=== PATIENT | male | born 1955 | race Caucasian/White ===

== ENCOUNTER 2020-06-01 10:31 | Outpatient (CLI) | payer OTHER, SELFPAY ==
--- NOTE | ~2020-06-01 | XR_ITS ---
EXAMINATION: XR chest 2V EXAM DATE: 06/01/2020 11:53 INDICATION: COPD. Shortness of breath on exertion. TECHNIQUE: Frontal and lateral projections of the chest obtained and reviewed. There is no prior lizzie dy for comparison. FINDINGS: The lungs are clear. There are no pleural effusions. The cardiomediastinal silhouette is within normal limits. There is no pneumothorax suspected. The bones and soft tissues are unremarkab le. There is mild hyperinflation. IMPRESSION: Mild hyperinflation. Reviewed, dictated and finalized at location A. RIALS ANALYST IMPRESSION: Mild hyperinflation.
[2020-06-01 10:40] VITALS: PULSE 79; O2SAT 92
[2020-06-01 10:45] VITALS: PULSE 89; O2SAT 85
[2020-06-01 10:50] VITALS: PULSE 94; O2SAT 86
[2020-06-01 10:55] VITALS: PULSE 99; O2SAT 87
[2020-06-01 11:00] VITALS: PULSE 108; O2SAT 90
[2020-06-01 11:15] VITALS: PULSE 74; O2SAT 92
== END 2020-06-01 10:32 | disposition home or self-care (01) ==
LOC: ANHPFT 10:32
PROVIDERS: PCP Family Medicine Sports Medicine; Visit Provider Nurse Practitioner
DX: J44.9 Chronic obstructive pulmonary disease, unspecified (principal)
CPT/HCPCS: 71046; 94618

== ENCOUNTER 2020-06-03 12:32 | Outpatient (CLI) | payer OTHER, SELFPAY ==
--- NOTE | 2020-06-03 | ECHO_ITS ---
Patient Info Name: Demetrio Thapa Age: 64 years : 1955 Gender: Male Ht: 71 in Wt: 240 lbs BSA: 2.37 m2 HR: 74 bpm BP: 132 / 74 mmHg Technical Quality: Good Exam Date: 06/03/2020 1:06 PM Exam Location: [facility] Patient Status: Outpatient Admit Date: 06/03/2020 Staff Ordering Physician: Lon, Claudia SEBASTIAN Hot Metal Mixer Operator: Nereyda Pritchett RDCS Attending Provider: Lon, Claudia SEBASTIAN Referring Physician: PHYSICIAN NOT ON STAFF, NONSTAFF ; Exam Type: CA echo doppler color flow Study Info Indications R06.00 - Dyspnea, unspecified Complete two-dimensional, color flow and Doppler transthoracic echocardiogram is performed. Summary 1. Complete two-dimensional, color flow and Doppler transthoracic echocardiogram is performed. 2. Left ventricular chamber dimension is normal. 3. Left ventricular systolic function is normal, estimated at 60-65%. 4. The left ventricular diastolic function is normal. 5. E/e' 7 is not elevated. 6. There is trace tricuspid valve regurgitation. 7. There is mild pulmonic regurgitation. Left Ventricle E/e' 7 is not elevated. Left ventricular chamber dimension is normal. Left ventricular systolic function is normal, estimated at 60-65%. The left ventricular diastolic function is normal. Right Ventricle Right ventricular chamber dimension is normal. Right ventricular systolic function is normal. Left Atria Left atrial chamber dimension is normal. Right Atria Right atrial chamber dimension is normal. Aortic Valve The aortic valve is trileaflet. There is no aortic valve stenosis. There is no aortic valve regurgitation. Pulmonic Valve There is mild pulmonic regurgitation. Mitral Valve There is no mitral valve stenosis. There is no mitral valve regurgitation. Tricuspid Valve There is trace tricuspid valve regurgitation. RVSP is not calculated due to an inadequate TR jet. Pericardium/Pleural There is no pericardial effusion. Inferior Vena Cava Normal inferior vena cava with >50% collapse upon inspiration consistent with normal right atrial pressure, 5 mmHg. Aorta The aortic root size at the sinus of Valsalva is normal. Left Ventricular Outflow Tract Name Value Normal LVOT 2D LVOT Diameter 2.0 cm LVOT Doppler LVOT Peak Gradient 6 mmHg LVOT Mean Gradient 3 mmHg LVOT VTI 23 cm LVOT VTI/AV VTI Ratio 0.9 LVOT Stroke Volume 72 ml LVOT CO 5.3 l/min LVOT CI 2.2 l/min/m2 Pulmonic Valve Name Value Normal RVOT Doppler RVOT Peak Gradient 2 mmHg PV Doppler PV Peak
== END 2020-06-03 12:33 | disposition home or self-care (01) ==
PROVIDERS: PCP Family Medicine Sports Medicine; Visit Provider Nurse Practitioner
DX: R06.09 Other forms of dyspnea (principal); I37.1 Nonrheumatic pulmonary valve insufficiency
CPT/HCPCS: 93306

== ENCOUNTER 2022-04-06 07:31 | Outpatient (CLI) | payer MEDICARE, SELFPAY ==
--- NOTE | 2022-04-06 | ECHO_ITS ---
Patient Info Name: Demetrio Thapa Age: 66 years : 1955 Gender: Male Ht: 71 in Wt: 240 lbs BSA: 2.37 m2 HR: 74 bpm BP: 137 / 74 mmHg Technical Quality: Fair Exam Date: 04/06/2022 8:15 AM Exam Location: [facility] Patient Status: Outpatient Admit Date: 04/06/2022 Staff Ordering Physician: Lon, Claudia SEBASTIAN Business And Financial Counsel: Jeffrey Patton, EUGENIO, RT Attending Provider: Lon, Claudia SEBASTIAN Exam Type: CA echo doppler w bubble study Study Info Indications R06.00 - Dyspnea, unspecified Strain analysis performed. Complete two-dimensional, color flow and Doppler transthoracic echocardiogram is performed with agitated saline. Summary 1. Left ventricular chamber dimension is normal. 2. Left ventricular systolic function is normal, estimated at 60-65%. 3. The left ventricular diastolic function is normal. 4. E/e' 6 is not elevated. 5. Global longitudinal strain is abnormal at -12.4%. 6. There is trace tricuspid valve regurgitation. 7. Dilated inferior vena cava with >50% collapse upon inspiration consistent with elevated right atrial pressure, 10 mmHg. Left Ventricle E/e' 6 is not elevated. Global longitudinal strain is abnormal at -12.4%. Left ventricular chamber dimension is normal. Left ventricular systolic function is normal, estimated at 60-65%. The left ventricular diastolic function is normal. Right Ventricle Right ventricular systolic function is normal and with normal TAPSE 2.5 cm. Right ventricular chamber dimension is normal. Left Atria Left atrial chamber dimension is normal. Right Atria Right atrial chamber dimension is normal. Atrial Septum Intact interatrial septum visualized by 2D, color flow and agitated saline imaging. Aortic Valve The aortic valve is trileaflet. There is no aortic valve stenosis. There is no aortic valve regurgitation. Pulmonic Valve There is no pulmonic regurgitation. Mitral Valve There is no mitral valve stenosis. There is no mitral valve regurgitation. Tricuspid Valve There is trace tricuspid valve regurgitation. RVSP is not calculated due to an inadequate TR jet. Pericardium/Pleural There is no pericardial effusion. Inferior Vena Cava Dilated inferior vena cava with >50% collapse upon inspiration consistent with elevated right atrial pressure, 10 mmHg. Aorta The aortic root size at the sinus of Valsalva is normal. Left Ventricular Outflow Tract Name Value Normal LVOT 2D LVOT Diameter 2.0 cm LVOT Doppler LVOT Peak Gradient 4 mmHg LVOT Mean Gradient 2 mmHg LVOT VTI 22 cm LVOT VTI/AV VTI Ratio 0.8 LVOT Stroke Volume 70 ml LVOT CO 4.4 l/min LVOT CI 1.9 l/min/m2 Mitral Valve Name Value Normal MV Doppler ---
== END 2022-04-06 07:32 | disposition home or self-care (01) ==
PROVIDERS: PCP Family Medicine Sports Medicine; Visit Provider Nurse Practitioner
DX: R06.09 Other forms of dyspnea (principal)
CPT/HCPCS: 93306; 96375

== ENCOUNTER 2022-08-10 01:06 | Day surgery (SDC) | payer MEDICARE, SELFPAY ==
[2022-07-31 10:20] VITALS: BMI 33.5
[2022-08-10 11:34] VITALS: BP 124/77; PULSE 79; RESP 20; TEMP 36.2; O2SAT 92
--- NOTE | 2022-08-10 11:43 | P.PNAN_ITS ---
Anes - Initial Pre Proc Eval Procedure: Operation Date: 08/10/22 13:00 Proposed Procedures p Esophagogastroduodenoscopy - Dante Henry MD Date/Time: 08/10/22 11:43 Surgeon: Dante Henry MD Pre Op Diagnosis: family hx esophageal ca, abnormal CT scan Patient Data Age: 67 Gender: M Height: 1.8 m Weight: 109.5 kg Allergies Allergy/AdvReac Type Severity Reaction Status Date / Time No Known Allergies Allergy Unknown Verified 08/10/22 11:33 Home Medications Medication Instructions Recorded Confirmed Type citalopram 20 mg tablet 20 mg PO DAILY 05/30/22 07/31/22 History folic acid 800 mcg tablet 0.8 mg PO DAILY 05/30/22 07/31/22 History furosemide 20 mg tablet 20 mg PO QAM 05/30/22 07/31/22 History multivitamin (Daily Multi-Vitamin 1 tablet PO DAILY 05/30/22 07/31/22 History tablet) phenytoin 100 mg/4 mL oral 100 mg PO QID 05/30/22 07/31/22 History suspension umeclidinium 62.5 mcg-vilanterol 1 inh inhalation DAILY 05/30/22 07/31/22 History 25 mcg/actuation powdr for inhalation (Anoro Ellipta) Patient hx anesthesia problems: none Family hx anesthesia problems: none Results Review: All pre-operative results and documents have been reviewed as part of the pre- operative evaluation. [facility] Family History Family History (Updated 05/30/22 @ 10:58 by Johnna Hunter MA) Father Esophageal cancer Mother Throat cancer Depression Heart disease Thyroid disorder Social History Social History (Updated 05/30/22 @ 11:07 by Johnna Hunter MA) Smoking packs per day: 0.75 Smoking cigarettes per day: 15.0 Years smoked: 20 Smoking pack-years: 15.00 Smoking status: Current every day smoker Tobacco type: cigarettes Second hand tobacco smoke exposure: No Alcohol intake: current Alcohol use details: rare Substance use: never Substance use type: does not use Living arrangements: alone Occupation/Education: retired Spiritual care concerns: No Anes - Eval Final PreProcedure Day of Procedure 08/10/22 11:43 Patient weight: obese Heart: regular rate and rhythm Lungs: clear to auscultation Airway: Mallampati scale class II Neurological: alert and oriented Last oral intake: >/= 8 hours ASA classification: III Emergent: no Anesthetic plan: proceed Anesthesia type and monitoring: general GIVS and standard monitoring Results Review: All pre-operative results and documents have been reviewed as part of the pre- operative evaluation. Informed Consent: The patient's anesthetic plan and its attendant risks and benefits were discussed with the patient/family/POA. Questions were solicited and answers provided to the satisfaction of the patient/family/POA.
[2022-08-10] MEDS: LACTATED RINGERS 1,000 ML 150 ML IV CONT (11:45)
--- NOTE | 2022-08-10 11:56 | PM.HPGS ---
History of Present Illness History of Present Illness Consent: Risks, benefits, and alternatives have been discussed and questions answered. Patient agrees to proceed with procedure. Chief complaint: family hx esophageal ca, abnormal CT scan Narrative: Demetrio Thapa is a 67 year old male Presents for EGD. Patient has a history of a CT scan obtain by pulmonary service because of COPD. CT was done for screening purposes. CT scan raised the question of a filling defect within the esophagus. For this reason patient presents for EGD. Patient's family history is significant that his father had an esophageal cancer. Patient denies any pain, bleeding or weight loss. Review of Systems Review of Systems: Review of systems noncontributory. [facility] Family History Family History (Updated 05/30/22 @ 10:58 by Johnna Hunter MA) Father Esophageal cancer Mother Throat cancer Depression Heart disease Thyroid disorder Social History Social History (Updated 05/30/22 @ 11:07 by Johnna Hunter MA) Smoking packs per day: 0.75 Smoking cigarettes per day: 15.0 Years smoked: 20 Smoking pack-years: 15.00 Smoking status: Current every day smoker Tobacco type: cigarettes Second hand tobacco smoke exposure: No Alcohol intake: current Alcohol use details: rare Substance use: never Substance use type: does not use Living arrangements: alone Occupation/Education: retired Spiritual care concerns: No Meds Home Medications and Allergies Home Medications Medication Instructions Recorded Confirmed Type citalopram 20 mg tablet 20 mg PO DAILY 05/30/22 07/31/22 History folic acid 800 mcg tablet 0.8 mg PO DAILY 05/30/22 07/31/22 History furosemide 20 mg tablet 20 mg PO QAM 05/30/22 07/31/22 History multivitamin (Daily Multi-Vitamin 1 tablet PO DAILY 05/30/22 07/31/22 History tablet) phenytoin 100 mg/4 mL oral 100 mg PO QID 05/30/22 07/31/22 History suspension umeclidinium 62.5 mcg-vilanterol 1 inh inhalation DAILY 05/30/22 07/31/22 History 25 mcg/actuation powdr for inhalation (Anoro Ellipta) Allergies Allergy/AdvReac Type Severity Reaction Status Date / Time No Known Allergies Allergy Unknown Verified 08/10/22 11:33 Vital Signs Vital Signs - 24 hr 02/10/23 11:34 Temperature 97.2 F L Pulse Rate 79 Respiratory Rate 20 Blood Pressure 124/77 Pulse Oximetry 92 Oxygen Delivery Room Air Exam Narrative: Physical exam reveals patient be alert. Vital signs stable. HEENT exam is unremarkable. Patient anicteric. Lungs are clear to auscultation and percussion. Heart is without murmur or extra sounds. Abdomen bowel sounds present soft nontender with no organomegaly. Assessment and Plan Assessment and plan (1) Abnormal CT scan: Code(s): R93.89 - Abnormal findings on diagnostic imaging of other specified body structures Status: Acute Assessment and Plan: Patient presents for EGD because of CT scan suggesting filling defect within the esophagus. Patient's history is significant that his father had esophageal cancer. Further recommendations may be given after endoscopy.
[2022-08-10 13:21] VITALS: BP 95/58; PULSE 63; RESP 18; O2SAT 100
[2022-08-10 13:31] VITALS: BP 126/83; PULSE 68; RESP 22; O2SAT 92
[2022-08-10 13:41] VITALS: BP 138/84; PULSE 62; RESP 21; O2SAT 91
== END 2022-08-10 13:53 | disposition home or self-care (01) ==
PROVIDERS: PCP Family Medicine Sports Medicine; Visit Provider Internal Medicine Gastroenterology
PROC: 0DJ08ZZ Inspection of Upper Intestinal Tract, Via Natural or Artificial Opening Endoscopic (ICD-10-PCS; CPT 43235; principal; 2022-08-10 13:00)
DX: K31.7 Polyp of stomach and duodenum (principal); K22.10 Ulcer of esophagus without bleeding; Z80.0 Family history of malignant neoplasm of digestive organs; Z79.51 Long term (current) use of inhaled steroids; F17.210 Nicotine dependence, cigarettes, uncomplicated; E66.9 Obesity, unspecified; Z68.33 Body mass index [BMI] 33.0-33.9, adult
CPT/HCPCS: 43251; 88305; J2704; J7120

== ENCOUNTER 2022-09-28 01:26 | Day surgery (SDC) | payer MEDICARE, SELFPAY ==
[2022-09-18 15:21] VITALS: BMI 33.5
[2022-09-28 08:22] VITALS: BP 119/60; PULSE 68; RESP 20; TEMP 36.2; O2SAT 89; BMI 33.7
--- NOTE | 2022-09-28 08:27 | WPDANESEPPF ---
Anes - Initial Pre Proc Eval Procedure: Operation Date: 09/28/22 09:00 Proposed Procedures p Esophagogastroduodenoscopy - Dante Henry MD Date/Time: 09/28/22 08:27 Surgeon: Dante Henry MD Pre Op Diagnosis: family hx esophageal ca, hx esophageal polyps Patient Data Age: 67 Gender: M Height: 1.8 m Weight: 109.8 kg Last Vital Signs Temp 36.2 C L 09/28/22 08:22 Pulse 68 09/28/22 08:22 Resp 20 09/28/22 08:22 BP 119/60 09/28/22 08:22 Pulse Ox 89 L 09/28/22 08:22 O2 Del Method Room Air 09/28/22 08:22 Allergies Allergy/AdvReac Type Severity Reaction Status Date / Time No Known Allergies Allergy Unknown Verified 09/28/22 08:21 Home Medications Medication Instructions Recorded Confirmed Type citalopram 20 mg tablet 20 mg PO DAILY 05/30/22 09/28/22 History folic acid 800 mcg tablet 0.8 mg PO DAILY 05/30/22 09/28/22 History furosemide 20 mg tablet 20 mg PO QAM 05/30/22 09/28/22 History multivitamin (Daily Multi-Vitamin 1 tablet PO DAILY 05/30/22 09/28/22 History tablet) phenytoin 100 mg/4 mL oral 100 mg PO QID 05/30/22 09/28/22 History suspension umeclidinium 62.5 mcg-vilanterol 1 inh inhalation DAILY 05/30/22 09/28/22 History 25 mcg/actuation powdr for inhalation (Anoro Ellipta) pantoprazole 40 mg tablet,delayed 40 mg PO QAM #30 tabs 08/10/22 09/28/22 Rx release Patient hx anesthesia problems: none Family hx anesthesia problems: none Results Review: All pre-operative results and documents have been reviewed as part of the pre-operative evaluation. [facility] Past Medical History Medical History COPD (chronic obstructive pulmonary disease) Family History Family History Father Esophageal cancer Mother Throat cancer Depression Heart disease Thyroid disorder Social History Social History Smoking packs per day: 0.75 Smoking cigarettes per day: 15.0 Years smoked: 20 Smoking pack-years: 15.00 Smoking status: Current every day smoker Tobacco type: cigarettes Second hand tobacco smoke exposure: No Alcohol intake: current Alcohol use details: rare Substance use: never Substance use type: does not use Living arrangements: alone Occupation/Education: retired Spiritual care concerns: No Anes - Eval Final PreProcedure Day of Procedure 09/28/22 08:27 Patient weight: obese Heart: regular rate and rhythm Lungs: decreased breath sounds Airway: Mallampati scale class II Neurological: alert and oriented Last oral intake: >/= 8 hours ASA classification: IV Emergent: no Anesthetic plan: proceed Anesthesia type and monitoring: general GIVS and standard monitoring Results Review: All pre-operative results and documents have been reviewed as part of the pre-operative evaluation. Informed Consent: The patient's anesthetic plan and its attendant risks and benefits were discussed with the patient/family/POA. Questions were solicited and answers provided to the satisfaction of the patient/family/POA.
[2022-09-28] MEDS: LACTATED RINGERS 1,000 ML 150 ML IV CONT (08:32)
--- NOTE | 2022-09-28 08:47 | PM.HPGS ---
History of Present Illness History of Present Illness Consent: Risks, benefits, and alternatives have been discussed and questions answered. Patient agrees to proceed with procedure. Chief complaint: family hx esophageal ca, hx esophageal polyps Narrative: Demetrio Thapa is a 67 year old male Presents for EGD. Patient has a history of a rather large distal esophageal hyperplastic polyp. Patient presents today for follow-up examination. Family history is significant that his father had esophageal cancer. A sister has had esophageal polyps as well. Patient currently on chronic pantoprazole for acid reflux. He denies heartburn. He has had no dysphagia. Review of Systems Review of Systems: Review of systems noncontributory. [facility] Past Medical History Medical History COPD (chronic obstructive pulmonary disease) Family History Family History Father Esophageal cancer Mother Throat cancer Depression Heart disease Thyroid disorder Social History Social History Smoking packs per day: 0.75 Smoking cigarettes per day: 15.0 Years smoked: 20 Smoking pack-years: 15.00 Smoking status: Current every day smoker Tobacco type: cigarettes Second hand tobacco smoke exposure: No Alcohol intake: current Alcohol use details: rare Substance use: never Substance use type: does not use Living arrangements: alone Occupation/Education: retired Spiritual care concerns: No Meds Home Medications and Allergies Home Medications Medication Instructions Recorded Confirmed Type citalopram 20 mg tablet 20 mg PO DAILY 05/30/22 09/28/22 History folic acid 800 mcg tablet 0.8 mg PO DAILY 05/30/22 09/28/22 History furosemide 20 mg tablet 20 mg PO QAM 05/30/22 09/28/22 History multivitamin (Daily Multi-Vitamin 1 tablet PO DAILY 05/30/22 09/28/22 History tablet) phenytoin 100 mg/4 mL oral 100 mg PO QID 05/30/22 09/28/22 History suspension umeclidinium 62.5 mcg-vilanterol 1 inh inhalation DAILY 05/30/22 09/28/22 History 25 mcg/actuation powdr for inhalation (Anoro Ellipta) pantoprazole 40 mg tablet,delayed 40 mg PO QAM #30 tabs 08/10/22 09/28/22 Rx release Allergies Allergy/AdvReac Type Severity Reaction Status Date / Time No Known Allergies Allergy Unknown Verified 09/28/22 08:21 Vital Signs Vital Signs - 24 hr 09/28/22 08:22 Temperature 97.2 F L Pulse Rate 68 Respiratory Rate 20 Blood Pressure 119/60 Pulse Oximetry 89 L Oxygen Delivery Room Air Exam Narrative: Physical exam reveals patient to be alert. Vital signs stable. HEENT exam is unremarkable. Patient is anicteric. Lungs are clear to auscultation and percussion. Heart is without murmur or extra sounds. Abdomen is soft nontender with no hepatosplenomegaly. Assessment and Plan Assessment and plan (1) GERD (gastroesophageal reflux disease): Code(s): K21.9 - Gastro-esophageal reflux disease without esophagitis Status: Acute Assessment and Plan: Patient with a history of chronic GE reflux disease patient has a history of a rather large inflammatory polyp of the GE junction. His family history is significant father had esophageal cancer. Plan for long-term acid reduction therapy. Anti-reflux measures strongly encouraged. Follow-up at this time after resection of large polyp. To exclude underlying Hunter's esophagus. (2) Family history of esophageal cancer: Code(s): Z80.0 - Family history of malignant neoplasm of digestive organs Status: Acute
[2022-09-28 09:09] VITALS: BP 100/59; PULSE 62; RESP 15; O2SAT 100
[2022-09-28 09:19] VITALS: BP 107/70; PULSE 60; RESP 17; O2SAT 94
== END 2022-09-28 09:32 | disposition home or self-care (01) ==
PROVIDERS: PCP Family Medicine Sports Medicine; Visit Provider Internal Medicine Gastroenterology
PROC: 0DJ08ZZ Inspection of Upper Intestinal Tract, Via Natural or Artificial Opening Endoscopic (ICD-10-PCS; CPT 43235; principal; 2022-09-28 09:00)
DX: K21.9 Gastro-esophageal reflux disease without esophagitis (principal); K22.82 Esophagogastric junction polyp; Z80.0 Family history of malignant neoplasm of digestive organs; J44.9 Chronic obstructive pulmonary disease, unspecified; F17.210 Nicotine dependence, cigarettes, uncomplicated; E66.9 Obesity, unspecified; Z68.33 Body mass index [BMI] 33.0-33.9, adult; Z79.51 Long term (current) use of inhaled steroids
CPT/HCPCS: 43239; 88305; J2704; J7120

== ENCOUNTER 2022-11-16 14:42 | Outpatient (CLI) | payer MEDICARE, SELFPAY ==
[2022-11-16] VITALS (7 sets, daily range): PULSE 70–96; O2SAT 86–90
--- NOTE | 2022-11-16 15:13 | HOMEO2EVAL ---
Evaluation was performed at [facility] Home Oxygen Evaluation RC: Home Oxygen (O2) Evaluation Start: 11/16/22 15:08 Freq: Status: Active Protocol: RPE Activity Type Activity Date Activity User E-sign Co-sign Detail Recorded Client Recorded Date Recorded By Document 11/16/22 14:50 MALATHI [email or web address] 11/16/22 15:13 MALATHI Document 11/16/22 14:51 MALATHI [email or web address] 11/16/22 15:13 MALATHI Document 11/16/22 14:52 MALATHI [email or web address] 11/16/22 15:13 MALATHI Document 11/16/22 14:53 MALATHI [email or web address] 11/16/22 15:13 MALATHI Document 11/16/22 14:55 MALATHI [email or web address] 11/16/22 15:13 MALATHI Document 11/16/22 14:56 MALATHI [email or web address] 11/16/22 15:13 MALATHI Document 11/16/22 15:10 MALATHI [email or web address] 11/16/22 15:13 MALATHI 11/16/22 11/16/22 11/16/22 14:50 14:51 14:52 Home O2 Evaluation [Oxygen] -Test Phase Resting Exercise Exercise -Oxygen Delivery Room Air Room Air Nasal Cannula -Oxygen Flow Rate (L/min) 1 [Pulse Oximetry] -Pulse Oximetry (90-100 %) 90 86 L 87 L [Pulse Rate] -Pulse Rate (60-100 beats/min) 70 [Exercise] -Ambulation Distance (feet) -Ambulation Distance (meters) [Comments] -Home Oxygen Evaluation Comments [Charges] -Treatment Charges O2 Evaluation - Outpatient 11/16/22 11/16/22 11/16/22 14:53 14:55 14:56 Home O2 Evaluation [Oxygen] -Test Phase Exercise Exercise Exercise -Oxygen Delivery Nasal Cannula Nasal Cannula Nasal Cannula -Oxygen Flow Rate (L/min) 2 3 4 [Pulse Oximetry] -Pulse Oximetry (90-100 %) 86 L 87 L 90 [Pulse Rate] -Pulse Rate (60-100 beats/min) 96 [Exercise] -Ambulation Distance (feet) 300 -Ambulation Distance (meters) 91.43 [Comments] -Home Oxygen Evaluation Comments Pt requires 4 L O2 with activity/ exertion. [Charges] -Treatment Charges 11/16/22 15:10 Home O2 Evaluation [Oxygen] -Test Phase Resting -Oxygen Delivery Room Air -Oxygen Flow Rate (L/min) [Pulse Oximetry] -Pulse Oximetry (90-100 %) 90 [Pulse Rate] -Pulse Rate (60-100 beats/min) 76 [Exercise] -Ambulation Distance (feet) -Ambulation Distance (meters) [Comments] -Home Oxygen Evaluation Comments [Charges] -Treatment Charges
--- NOTE | 2022-11-16 15:13 | PCRCNOTE ---
Faxed home O2 eval to [facility] office staff. Pt requesting a POC, he has a POC currently with [facility] but only goes up to 3L. Will not on fax to office staff of needed increase in POC requirements. Pt does not want tanks.
--- NOTE | 2022-11-19 10:53 | WPDPFTINT ---
PFT Procedure Performed PFT Procedure Performed Spirometry with Pre/Post Bronchodilator Plethysmography (Lung Vol) Diffusing Cap (DLCO) Flow Vol Loop PFT Interpretation Lung volumes were measured with the body plethysmography method. The elevated FRC and RV are indicative of air trapping. Spirometry showed diminished expiratory flow rates and a diminished FEV1 to FVC ratio 45%, consistent with obstructive airway disease. Following administration of a bronchodilator there was no significant increase in expiratory flow rates. Lung diffusion capacity is severely reduced at 34% predicted. The flow-volume loop is consistent with emphysema. Impression: Moderately severe obstructive airway disease with evidence of air trapping and no response to bronchodilators on this testing. Severely reduced lung diffusion capacity.
== END 2022-11-16 14:43 | disposition home or self-care (01) ==
PROVIDERS: PCP Family Medicine Sports Medicine; Visit Provider Nurse Practitioner
DX: J44.9 Chronic obstructive pulmonary disease, unspecified (principal); R94.2 Abnormal results of pulmonary function studies
CPT/HCPCS: 94060; 94618; 94726; 94729

== ENCOUNTER 2024-05-19 14:10 | Outpatient (CLI) | payer MEDICARE, SELFPAY ==
--- NOTE | ~2024-05-19 | CT_ITS ---
EXAMINATION:CT lung screening DATE: 05/19/2024 14:39 INDICATION: Personal history of nicotine dependence. Current smoker with 49 pack year history. TECHNIQUE: Computed tomography (CT) of the chest was performed without intravenous contrast. Automate d exposure control and iterative reconstruction technique were employed. The dose-length product (DLP ) was 245.35 mGy-cm. COMPARISON: Chest CT 04/08/2023, 04/03/22 FINDINGS: There is a 10 mm nodule in right lower lobe, stable from 04/03/22. There is peripheral septa l thickening in the lungs associated with groundglass opacities. There is mild emphysema. No pleural effusion. The heart size is normal. There are coronary artery calcifications. No pericardial effusion . The central pulmonary arteries are enlarged, consistent with pulmonary arterial hypertension. There is chronic fat stranding at the root of the small bowel mesentery. There is mild thoracic spondylosi s. There are multiple chronic compression fractures in the spine. IMPRESSION: 1. Lung-RADS category 2: Benign appearance or behavior. Continue annual screening with noncontrast lo w-dose chest CT in 12 months. Reviewed, dictated and finalized at location A. OLOGY PROFESSOR IMPRESSION: 1. Lung-RADS category 2: Benign appearance or behavior. Continue annual screeni ng with noncontrast low-dose chest CT in 12 months.
== END 2024-05-19 14:11 | disposition home or self-care (01) ==
PROVIDERS: PCP Family Medicine; Visit Provider Nurse Practitioner Family
DX: Z12.2 Encounter for screening for malignant neoplasm of respiratory organs (principal); Z87.891 Personal history of nicotine dependence
CPT/HCPCS: 71271

== ENCOUNTER 2024-09-29 13:37 | Inpatient (IN) | payer MEDICARE, SELFPAY ==
[2024-09-29] VITALS (18 sets, daily range): BP systolic 107–157; BP diastolic 61–81; PULSE 52–95; RESP 9–33; TEMP 36.8–37.1; O2SAT 88–98; BMI 31.3
--- NOTE | ~2024-09-29 | CT_ITS ---
EXAMINATION: CTA chest PE protocol DATE: 10/02/2024 14:45 CDT INDICATION: Hypoxia TECHNIQUE: Computed tomographic angiography (CTA) of the chest was performed with 100 mL Omnipaque-35 0 intravenous contrast. The dose-length product was 744.72 mGy-cm. Maximum intensity projection 3D-re constructions of the aorta and other arteries were constructed by the technologist on a separate work station. Automated exposure control and iterative reconstruction technique were employed. COMPARISON: CT dated 05/19/2024. FINDINGS: Enlarged pulmonary arteries consistent with pulmonary hypertension. Study is technically ad equate without evidence for pulmonary embolism. Borderline heart size. There is mediastinal and hilar lymphadenopathy. No significant pleural or pericardial effusion. There is emphysema. No endobronchia l lesions. There is bilateral lower lobe airspace consolidation with groundglass opacification of bot h lungs. No endobronchial lesions. No pneumothorax. There are multiple compression fractures of the t horacic spine, unchanged, chronic. IMPRESSION: 1. No evidence for pulmonary embolism. 2: Lower lobe consolidation bilaterally with areas of groundglass opacification in both lungs. Differ ential diagnosis includes pneumonia and/or atelectasis. 3: Mediastinal and bilateral hilar lymphadenopathy. Differential diagnosis includes reactive lymphade nopathy versus metastatic disease. Correlate for history of malignancy. Reviewed, dictated and finalized at location A. IMPRESSION: 1. No evidence for pulmonary embolism. 2: Lower lobe consolidation bilaterally with areas of groundglass opacification in both lungs. Differential diagnosis includes pneumonia and/or atelectasis. 3: Mediastinal and bilateral hilar lymphadenopathy. Differential diagnosis incl udes reactive lymphadenopathy versus metastatic disease. Correlate for history of malignancy.
--- NOTE | ~2024-09-29 | XR_ITS ---
EXAMINATION: XR chest 1V portable DATE: 09/29/2024 14:09 INDICATION: Shortness of breath TECHNIQUE: frontal view of the chest was obtained. COMPARISON: Chest radiograph dated 06/01/[address] dated 05/19/2024 FINDINGS: Mild increased interstitial pattern in the bilateral lower lung zones consistent with mild pulmonary edema. No other airspace opacities, pleural effusion or pneumothorax. Heart size is normal with peric ardial fat pad along the apex of the heart. IMPRESSION: 1. Mild increased interstitial pattern in the bilateral lower lung zones which could represent mild p ulmonary edema or pneumonia. Reviewed, dictated and finalized at location A. IMPRESSION: 1. Mild increased interstitial pattern in the bilateral lower lung zones which could represent mild pulmonary edema or pneumonia.
--- NOTE | 2024-09-29 13:44 | ED_ITS ---
HPI - General Adult General Chief complaint: Shortness of Breath/Dyspnea Stated complaint: SOB History of Present Illness HPI narrative: 69-year-old male present to the emergency department for evaluation for worsening shortness of breath. Patient does have a history of COPD but suspects that he has had influenza for the course of the last week. Patient states he has not smoked in the last 5 days. Patient does wear 8L of oxygen at nighttime. Related Data Home Medications ?Medication ?Instructions ?Recorded ?Confirmed ?Last Taken ?Type citalopram 20 mg tablet 20 mg PO DAILY 05/30/22 09/29/24 08/09/22 History folic acid 800 mcg tablet 0.8 mg PO DAILY 05/30/22 09/29/24 08/09/22 History furosemide 20 mg tablet 20 mg PO QAM 05/30/22 09/29/24 08/09/22 History multivitamin (Daily Multi-Vitamin 1 tablet PO DAILY 05/30/22 09/29/24 08/09/22 History tablet) phenytoin 100 mg/4 mL oral 200 mg PO BID 05/30/22 09/29/24 09/28/24 History suspension Allergies Allergy/AdvReac Type Severity Reaction Status Date / Time No Known Allergies Allergy Unknown Verified 09/29/24 13:51 Review of Systems 2 Review of Systems: All systems reviewed & are unremarkable except as noted in HPI and below PMFSH Past Medical History Medical History COPD (chronic obstructive pulmonary disease) Esophageal erosions Esophageal polyp Family history of esophageal cancer GERD (gastroesophageal reflux disease) Seizures Family History Family History Father Esophageal cancer Mother Throat cancer Depression Heart disease Thyroid disorder Social History Social History Social History: He is a current smoker 3/4ppd; started age 13 to 29 1.5ppd, quit for 15 years then restarted smoking 1998 up to now. Was 2ppd for first few years then around 3/4-1ppd currently; ~49 pack years. Smoking packs per day: 1 Smoking cigarettes per day: 20.0 Years smoked: 41 Smoking pack-years: 41.00 Smoking status: Current every day smoker Tobacco type: cigarettes Second hand tobacco smoke exposure: No Alcohol intake: current Drinks per week: 3 Alcohol use details: rare Substance use: never Substance use type: does not use Do You Feel Safe in your Home?: Yes Lack of Transportation: No Lack of Food: Never True Current Housing: I Have Housing Concerned About Future Housing: No Difficulty Paying Gas/Electric Bills: No Difficulty Paying for Meds: No Currently Unemployed: No Education: Bachelor's Degree Difficulty w/ Childcare or Family Care: No Living arrangements: alone Occupation/Education: retired Spiritual care concerns: No Exam 2 Narrative: APPEARANCE: Ill appearing EYES: PERRLA/EOMI, conjunctivae clear. NOSE: Normal no drainage EARS:TMS clear with good light reflex. THROAT: Pharynx clear, no exudate. NECK: Supple. No adenopathy, no masses. RESPIRATORY: Expiratory wheeze CARDIOVASCULAR: Regular rate and rhythm without murmurs rubs or gallops. ABDOMINAL: Soft, nontender, nondistended, normal bowel sounds MUSCULOSKELETAL: Moves all extremities. Strength/ROM intact, No edema, No calf tenderness. NEURO: Alert. Cranial nerves II through XII intact. Good gait. Good coordination SKIN: Warm, dry. Normal Color Course Vital Signs Vital signs: Vital Signs Temperature 98.7 F 09/29/24 13:39 Pulse Rate 95 09/29/24 13:39 Respiratory Rate 32 H 09/29/24 13:39 Blood Pressure 110/70 09/29/24 13:39 Pulse Oximetry 88 L 09/29/24 13:39 Oxygen Delivery Nasal Cannula 09/29/24 13:39 Oxygen Flow Rate 6 09/29/24 13:39 Temperature 98.7 F 09/29/24 13:39 Pulse Rate 69 09/29/24 16:30 Respiratory Rate 18 09/29/24 16:30 Blood Pressure 128/66 09/29/24 16:08 Pulse Oximetry 97 09/29/24 16:30 Oxygen Delivery BiPAP 09/29/24 16:30 Oxygen Flow Rate 6 09/29/24 13:58 Medical Decision Making [facility] Narrative Medical decision making narrative: 69-year-old male with history smoking with COPD with an 8 L oxygen requirement at nighttime on his CPAP presents emergency department for evaluation for increased work of breathing. Patient is normally not on oxygen during the day but has been using it more frequently during the day. Patient was saturating at 89% on 4 L. Patient was treated with 2 breathing treatments but still has increased work of breathing. Patient is currently afebrile with no leukocytosis and hemoglobin of 14.5. INR is 1.1. On patient's ABG did have a pCO2 of 44 and an ABG O2 saturation of 85.8. Due to his increased work of breathing I am trialing the patient BiPAP. Patient was treated with 125 IV Solu-Medrol. Patient has no significant abnormalities on his CMP patient was positive for influenza A. Chest x-ray showed mild increased interstitial pattern in the bilateral lower lung zones which could represent mild pulmonary edema or pneumonia. BNP is pending. Patient will be started on antibiotics in the emergency department at least for a single dose. Differential Diagnosis Differential Diagnosis: COVID, RSV influenza, pneumonia, pulmonary edema Vital Signs Vital Signs: Vital Signs Temperature 98.7 F 09/29/24 13:39 Pulse Rate 95 09/29/24 13:39 Respiratory Rate 32 H 09/29/24 13:39 Blood Pressure 110/70 09/29/24 13:39 Pulse Oximetry 88 L 09/29/24 13:39 Oxygen Delivery Nasal Cannula 09/29/24 13:39 Oxygen Flow Rate 6 09/29/24 13:39 Temperature 98.7 F 09/29/24 13:39 Pulse Rate 69 09/29/24 16:30 Respiratory Rate 18 09/29/24 16:30 Blood Pressure 128/66 09/29/24 16:08 Pulse Oximetry 97 09/29/24 16:30 Oxygen Delivery BiPAP 09/29/24 16:30 Oxygen Flow Rate 6 09/29/24 13:58 Lab Data Lab results reviewed: Yes I reviewed the patient's lab results. 09/29/24 13:55 09/29/24 13:55 Labs: Lab Results 09/29/24 09/29/24 09/29/24 Range/Units 13:49 13:55 15:38 WBC 8.1 (4.5-10.0) K/mm3 RBC 4.52 L (4.6-6.20) M/mm3 Hgb 14.5 (14.0-18.0) g/dL Hct 43.6 (42.0-52.0) % MCV 96.5 (80-100) fl MCH 32.1 (26-34) pg MCHC 33.3 (32-36) g/dl RDW 14.3 (11.5-14.5) % Plt Count 118 L (150-375) k/mm3 MPV 9.1 (7.4-10.4) fl Immature Gran % (Auto) 0.2 (0-0.5) % Neut % (Auto) 70.8 (45.5-73.1) % Lymph % (Auto) 17.9 L (18.3-44.2) % [place] % (Auto) 10.7 H (2.6-8.5) % Eos % (Auto) 0.0 (0-4.4) % Baso % (Auto) 0.4 (0.2-1.2) % Lymph # (Auto) 1.44 (0.9-3.2) K/mm3 [place] # (Auto) 0.9 H (0.1-0.6) K/mm3 Eos # (Auto) 0.0 (0-0.3) K/mm3 Baso # (Auto) 0.0 (0.0-0.1) K/mm3 Abs Immat Gran (auto) 0.02 (0.00-0.031) K/mm3 Absolute Neuts (auto) 5.7 (1.3-6.7) K/mm3 Absolute Nucleated RBC 0.000 (0.0-0.012) K/mm3 Nucleated RBC % 0.0 (0.0-0.2) % % Immature Plt Fraction 2.3 (0.9-11.2) % PT 14.3 (11.1-14.7) Seconds INR 1.1 APTT 29.3 (22.3-36.8) Seconds Methemoglobin 0.3 (0-1.5) %THb Sodium 134 L (137-145) mmol/L Potassium 4.1 (3.4-5.0) mmol/L Chloride 95 L (98-107) mmol/L Carbon Dioxide 32 H (22-30) mmol/L Anion Gap 7 (4-12) mmol/L BUN 14 (9-20) mg/dL Creatinine 0.55 L (0.7-1.3) mg/dL Estim Creat Clear Calc 127 ml/min Estimated GFR > 60 (59 - ) Glucose 91 (65-110) mg/dL Lactic Acid 0.8 (0.7-2.0) mmol/L Calcium 8.2 L (8.4-10.2) mg/dL Total Bilirubin 0.8 (0.2-1.3) mg/dL AST 44 (17-59) U/L ALT 29 (6-50) U/L Alkaline Phosphatase 87 (38-126) U/L NT-Pro-B Natriuret Pep 170 H (19.9-100) pg/mL Total Protein 8.0 (6.3-8.2) g/dL Albumin 3.7 (3.5-5.1) g/dL Urine Color (Yellow) Urine Appearance (Clear) Urine pH (5.0-9.0) Ur Specific [place] (1.001-1.035) Urine Protein (Negative) mg/dL Urine Glucose (UA) (Negative) mg/dL Urine Ketones (Negative) mg/dL Ur Blood (Man) (Negative) Urine Nitrate (Negative) Urine Bilirubin (Negative) Urine Urobilinogen (<2.0) mg/dL Leukocyte Esterase Rfl (Negative) HODA/UL Urine RBC (0-2) /hpf Urine WBC (0-3) /hpf Ur Squamous Epith Cells (Few) /hpf Urine Bacteria /hpf Urine Casts Nasal MRSA (PCR) Not detected (NOT DETECTE) Influenza A (RT-PCR) Positive A (Negative) Influenza B (RT-PCR) Negative (Negative) RSV (RT-PCR) Negative (Negative) SARS-CoV-2 RNA (RT-PCR) Negative (Negative) 09/29/24 Range/Units 16:00 WBC (4.5-10.0) K/mm3 RBC (4.6-6.20) M/mm3 Hgb (14.0-18.0) g/dL Hct (42.0-52.0) % MCV (80-100) fl MCH (26-34) pg MCHC (32-36) g/dl RDW (11.5-14.5) % Plt Count (150-375) k/mm3 MPV (7.4-10.4) fl Immature Gran % (Auto) (0-0.5) % Neut % (Auto) (45.5-73.1) % Lymph % (Auto) (18.3-44.2) % [place] % (Auto) (2.6-8.5) % Eos % (Auto) (0-4.4) % Baso % (Auto) (0.2-1.2) % Lymph # (Auto) (0.9-3.2) K/mm3 [place] # (Auto) (0.1-0.6) K/mm3 Eos # (Auto) (0-0.3) K/mm3 Baso # (Auto) (0.0-0.1) K/mm3 Abs Immat Gran (auto) (0.00-0.031) K/mm3 Absolute Neuts (auto) (1.3-6.7) K/mm3 Absolute Nucleated RBC (0.0-0.012) K/mm3 Nucleated RBC % (0.0-0.2) % % Immature Plt Fraction (0.9-11.2) % PT (11.1-14.7) Seconds INR APTT (22.3-36.8) Seconds Methemoglobin (0-1.5) %THb Sodium (137-145) mmol/L Potassium (3.4-5.0) mmol/L Chloride (98-107) mmol/L Carbon Dioxide (22-30) mmol/L Anion Gap (4-12) mmol/L BUN (9-20) mg/dL Creatinine (0.7-1.3) mg/dL Estim Creat Clear Calc ml/min Estimated GFR (59 - ) Glucose (65-110) mg/dL Lactic Acid (0.7-2.0) mmol/L Calcium (8.4-10.2) mg/dL Total Bilirubin (0.2-1.3) mg/dL AST (17-59) U/L ALT (6-50) U/L Alkaline Phosphatase (38-126) U/L NT-Pro-B Natriuret Pep (19.9-100) pg/mL Total Protein (6.3-8.2) g/dL Albumin (3.5-5.1) g/dL Urine Color Yellow (Yellow) Urine Appearance Clear (Clear) Urine pH 6.0 (5.0-9.0) Ur Specific [place] 1.014 (1.001-1.035) Urine Protein 1+ H (Negative) mg/dL Urine Glucose (UA) Negative (Negative) mg/dL Urine Ketones 1+ H (Negative) mg/dL Ur Blood (Man) Negative (Negative) Urine Nitrate Negative (Negative) Urine Bilirubin Negative (Negative) Urine Urobilinogen 1.0 (<2.0) mg/dL Leukocyte Esterase Rfl Negative (Negative) HODA/UL Urine RBC 0-2 (0-2) /hpf Urine WBC 0-5 (0-3) /hpf Ur Squamous Epith Cells None seen (Few) /hpf Urine Bacteria None seen /hpf Urine Casts 0-2 Nasal MRSA (PCR) (NOT DETECTE) Influenza A (RT-PCR) (Negative) Influenza B (RT-PCR) (Negative) RSV (RT-PCR) (Negative) SARS-CoV-2 RNA (RT-PCR) (Negative) ABG Data ABG results: 09/29/24 13:49 Puncture Site Right radial ABG pH 7.455 H ABG pCO2 44.1 ABG pO2 48.3 L* ABG PO2/FiO2 Ratio 1.34 ABG HCO3 30.3 H ABG O2 Saturation 85.8 L* ABG O2 Content 17.8 ABG Base Excess 5.6 A-a Gradient 157.2 Oxyhemoglobin 83.9 L* Carboxyhemoglobin 2.0 Reduced Hemoglobin 13.8 H Total Hemoglobin 15.1 O2 Delivery Device Nasal cannula O2 Liters/Min 4.0 FiO2 36 Imaging Data Radiologist's impression: Impressions Chest X-Ray 09/29/24 14:17 IMPRESSION: 1. Mild increased interstitial pattern in the bilateral lower lung zones which could represent mild pulmonary edema or pneumonia. Discharge Plan Discharge Clinical Impression: Hypoxia, Influenza A Community acquired pneumonia Qualifiers: Laterality: unspecified laterality Qualified Code(s): J18.9 - Pneumonia, unspecified organism COPD (chronic obstructive pulmonary disease) Qualifiers: COPD type: COPD with acute exacerbation Qualified Code(s): J44.1 - Chronic obstructive pulmonary disease with (acute) exacerbation Patient Disposition: Still a Patient Condition: Serious
[2024-09-29] MEDS: methylPREDNISolone SOD SUCC 125 MG VIAL IV PUSH (13:51)
[2024-09-29] MEDS: ALBUTEROL SULFATE NEB 2.5 MG/3 ML INH 5 MG INHALATION (13:59)
[2024-09-29 14:06] LABS: Alveolar/Arterial O2 Gradient 157.2 mmHg; Base Excess ABG 5.6 mEq/l (+/-2.0); Fractional Inspired Oxygen 36 %; HCO3 ABG 30.3 mEq/l (22.0-26.0); Methemoglobin ABG 0.3 %THb (0-1.5); Oxygen Content ABG 17.8 %vol (16.0-22.0); PCO2 ABG 44.1 mmHg (35.0-45.0); PO2 FiO2 Ratio Arterial Blood 1.34 %; Reduced Hemoglobin 13.8 %THb (0-5.0); Total Hemoglobin 15.1 g/dL (12.0-18.0); pH ABG 7.455 (7.350-7.450)
[2024-09-29 14:08] LABS: PO2 ABG 48.3 mmHg (80.0-100.0)
[2024-09-29 14:09] LABS: Device NASAL CANNULA; Modified Allen's Test Pass; Oxygen Saturation ABG 85.8 % (95.0-100.0); Oxyhemoglobin 83.9 % THb (90.0-100.0); Site Drawn RIGHT RADIAL
--- NOTE | 2024-09-29 14:14 | ECG_ITS ---
Test Date: 2024-09-29 13:44:29 Measurements Intervals [place] Rate: 60 P: 40 MS: 149 QRS: -21 QRSD: 84 T: 17 QT: 415 QTc: 415 Interpretive Statements SINUS RHYTHM BASELINE ARTIFACT- I, II, III, AVR, AVF NORMAL ECG No previous ECG available for comparison Electronically Signed On 09-29-2024 14:16:[address] D[address]
[2024-09-29 14:15] LABS: Basophils Percent Auto 0.4 % (0.2-1.2); Hematocrit 43.6 % (42.0-52.0); Hemoglobin 14.5 g/dL (14.0-18.0); Immature Granulocyte Absolute 0.02 K/mm3 (0.00-0.031); Immature Granulocyte Percent A 0.2 % (0-0.5); Immature Platelet Fraction Pct 2.3 % (0.9-11.2); Lymphocytes Absolute Auto 1.44 K/mm3 (0.9-3.2); Lymphocytes Percent Auto 17.9 % (18.3-44.2); Mean Corpuscular HGB Conc 33.3 g/dl (32-36); Mean Corpuscular Hemoglobin 32.1 pg (26-34); Mean Corpuscular Volume 96.5 fl (80-100); Mean Platelet Volume 9.1 fl (7.4-10.4); Monocytes Absolute Auto 0.9 K/mm3 (0.1-0.6); Monocytes Percent Auto 10.7 % (2.6-8.5); Neutrophils Absolute Auto 5.7 K/mm3 (1.3-6.7); Neutrophils Percent Auto 70.8 % (45.5-73.1); Platelet Count Result 118 k/mm3 (150-375); Red Blood Count 4.52 M/mm3 (4.6-6.20); Red Cell Distribution Width 14.3 % (11.5-14.5); White Blood Count 8.1 K/mm3 (4.5-10.0)
[2024-09-29 14:16] LABS: Alanine Aminotransferase 29 U/L (6-50); Albumin Level 3.7 g/dL (3.5-5.1); Alkaline Phosphatase 87 U/L (38-126); Anion Gap 7 mmol/L (4-12); Aspartate Amino Transferase 44 U/L (17-59); Bilirubin,Total 0.8 mg/dL (0.2-1.3); Blood Urea Nitrogen 14 mg/dL (9-20); Calcium 8.2 mg/dL (8.4-10.2); Carbon Dioxide 32 mmol/L (22-30); Chloride 95 mmol/L (98-107); Estimated CRCL calculation 127 ml/min; Estimated Glomerular Filt Rate > 60; Glucose 91 mg/dL (65-110); Potassium 4.1 mmol/L (3.4-5.0); Sodium 134 mmol/L (137-145)
[2024-09-29 14:24] LABS: INR 1.1; Prothrombin Time 14.3 Seconds (11.1-14.7)
[2024-09-29 14:25] LABS: Partial Thromboplastin Time 29.3 Seconds (22.3-36.8)
[2024-09-29 14:41] LABS: Influenza A QL RT-PCR Positive (Negative); Influenza B QL RT-PCR Negative (Negative); RSV RNA, RT-PCR Negative (Negative); SARS-CoV-2 RNA PCR Negative (Negative)
--- NOTE | 2024-09-29 15:09 | PM.IMHP ---
H&P: HPI History of Present Illness Date/Time: 09/29/24 15:09 Chief Complaint: Shortness of Breath Narrative: 69 y/o M with PMH of COPD, GERD, and seizures presents here with shortness of breath. The patient presents here from home via EMS on 10/08 for further evaluation of shortness of breath. He reports onset approximately 5 days ago on Saturday, 08/28. Initially started as cough, fever, congestion. Max T was 101.5F. Then developed diarrhea and hypoxia - reports if he would exert himself he would drop into the 50s-60s which prompted him to start using his supplemental oxygen during day time hours. He was on 5L and he reports he would barely stay above 90%. He currently requires 8L via CPAP at night, no supplemental O2 requirement in day time hours or with exertion. At baseline he runs at 89-91%. He has a past medical history of COPD and he is a current everyday smoker. 1 PPD x20+ years, he reports due to feeling unwell he has not smoked in 5 days and would like to quit. Initial VS at presentation: 98.7? F, HR 95, R 32, 110/70, and 88% on 6L NC. ED workup showed: No leukocytosis, no anemia, normal coags, ABG showed 0240.3, HC03 30.3/O2 saturation 85.8% on 4L NC, sodium 134, creatinine 0.55 and GFR >60, calcium 8.2, influenza A positive. CXR showed mild increased interstitial pattern in the bilateral lower lung zones which could represent mild pulmonary edema or pneumonia. EKG showed sinus rhythm, baseline artifact, normal EKG, rate 60. Review of Systems Review of Systems: All systems reviewed & are unremarkable except as noted in HPI and below PMFSH Past Medical History Medical History Seizures Family history of esophageal cancer GERD (gastroesophageal reflux disease) Esophageal erosions Esophageal polyp COPD (chronic obstructive pulmonary disease) Family History Family History Father Esophageal cancer Mother Throat cancer Depression Heart disease Thyroid disorder Social History Social History Social History: He is a current smoker 3/4ppd; started age 13 to 29 1.5ppd, quit for 15 years then restarted smoking 1998 up to now. Was 2ppd for first few years then around 3/4-1ppd currently; ~49 pack years. Smoking packs per day: 1 Smoking cigarettes per day: 20.0 Years smoked: 41 Smoking pack-years: 41.00 Smoking status: Current every day smoker Tobacco type: cigarettes Second hand tobacco smoke exposure: No Alcohol intake: current Drinks per week: 3 Alcohol use details: rare Substance use: never Substance use type: does not use Do You Feel Safe in your Home?: Yes Lack of Transportation: No Lack of Food: Never True Current Housing: I Have Housing Concerned About Future Housing: No Difficulty Paying Gas/Electric Bills: No Difficulty Paying for Meds: No Currently Unemployed: No Education: Bachelor's Degree Difficulty w/ Childcare or Family Care: No Living arrangements: alone Occupation/Education: retired Spiritual care concerns: No Meds Home Medications and Allergies Home Medications ?Medication ?Instructions ?Recorded ?Confirmed ?Type citalopram 20 mg tablet 20 mg PO DAILY 05/30/22 09/29/24 History folic acid 800 mcg tablet 0.8 mg PO DAILY 05/30/22 09/29/24 History furosemide 20 mg tablet 20 mg PO QAM 05/30/22 09/29/24 History multivitamin (Daily Multi-Vitamin 1 tablet PO DAILY 05/30/22 09/29/24 History tablet) phenytoin 100 mg/4 mL oral 200 mg PO BID 05/30/22 09/29/24 History suspension Anoro Ellipta 62.5 mcg-25 1 inh inhalation DAILY 90 days 01/31/24 09/29/24 Rx mcg/actuation powder for #180 ea inhalation (umeclidinium-vilanterol) albuterol sulfate 90 mcg/actuation 1 - 2 inh inhalation Q4-6H PRN 01/31/24 09/29/24 Rx aerosol inhaler shortness of breath or wheezing #8.5 grams albuterol sulfate 2.5 mg/3 mL 2.5 mg (3 mL) inhalation QID PRN 05/11/24 09/29/24 Rx (0.083 %) solution for nebulization shortness of breath or wheezing #360 mL Allergies Allergy/AdvReac Type Severity Reaction Status Date / Time No Known Allergies Allergy Unknown Verified 09/29/24 13:51 Vital Signs Vital Signs - 24 hr 09/29/24 13:39 09/29/24 13:58 09/29/24 13:58 Temperature 98.7 F Pulse Rate 95 68 Respiratory Rate 32 H Blood Pressure 110/70 Pulse Oximetry 88 L 88 L Oxygen Delivery Nasal Cannula Nasal Cannula Oxygen Flow Rate 6 6 09/29/24 14:02 09/29/24 14:14 Temperature Pulse Rate 66 75 Respiratory Rate 20 20 Blood Pressure Pulse Oximetry Oxygen Delivery Oxygen Flow Rate Exam Narrative: cleare, tachypneivc Const: General: comfortable and no acute distress Other: , male, nontoxic appearance HENMT: Face/Nose/Sinus: Normal nares present Mouth: Yes dry mucous membranes (BiPAP in place) Eyes: General: appearance normal, both eyes and all related structures Sclera: sclerae normal Pupils: Equal, round and reactive pupils present EOM: EOMs intact bilaterally Resp: Other: +tachypnea. Moderate air movement, no wheezing or crackles. Cardio: Rate: regular rate Rhythm: regular rhythm Other: S1-S2 present without murmur, rub, ectopy GI: Other: Abdomen soft, nondistended but rounded, nontender. Normoactive bowel sounds in all quadrants. Skin: General skin exam: normal color and no rashes or lesions noted Wounds: no wounds Neuro: Speech: normal speech Motor exam (neuro): 5/5 motor strength present throughout Sensory Exam: normal sensation Other: A&O x4 Extrem: General: normal to inspection Psych: Mental Status: mental status grossly normal Affect: normal affect Other: Good insight and judgment, pleasant H&P: Results Labs Labs: Short CBC 09/29/24 Range/Units 13:55 WBC 8.1 (4.5-10.0) K/mm3 Hgb 14.5 (14.0-18.0) g/dL Hct 43.6 (42.0-52.0) % Plt Count 118 L (150-375) k/mm3 BMP 09/29/24 13:55 Sodium 134 L Potassium 4.1 Chloride 95 L Carbon Dioxide 32 H BUN 14 Creatinine 0.55 L Glucose 91 Calcium 8.2 L Liver Function 09/29/24 Range/Units 13:55 Total Bilirubin 0.8 (0.2-1.3) mg/dL AST 44 (17-59) U/L ALT 29 (6-50) U/L Alkaline Phosphatase 87 (38-126) U/L Albumin 3.7 (3.5-5.1) g/dL Assessment and Plan Assessment and plan (1) Hypoxia: Code(s): R09.02 - Hypoxemia Status: Acute Assessment and Plan: - CXR: Mild increased interstitial pattern in the bilateral lower lung zones which could represent mild pulmonary edema or pneumonia. - Flu A+ on 09/29 - BNP 170, monitor I&Os. last echo on file in 2021 (normal systolic and diastolic function, estimated EF 60-65%) - started on ceftriaxone and azithromycin for community-acquired pneumonia/COPD exacerbation - ABG, initial: pH 7.455, pCO2 44.1, pO2 48.3, HCO3 30.3, O2 sat 85.8 % on 4L NC. place on BiPAP for work of breathing, will recheck ABG in 2 hours - baseline supplemental O2 need: 8L w/CPAP at night time. Suspect acute hypoxic respiratory failure secondary to influenza, COPD exacerbation, +/- pneumonia (2) Community acquired pneumonia: Qualifiers: Laterality: unspecified laterality Qualified Code(s): J18.9 - Pneumonia, unspecified organism Code(s): J18.9 - Pneumonia, unspecified organism Status: Acute Assessment and Plan: - risk factors and complicating factors: Influenza A, COPD - started on CAP tx: ceftriaxone and azithromycin on 09/29 - check MRSA PCR and sputum culture (if obtainable) - supportive care DuoNeb hao Mucinex hao Tessalon Perles p.r.n. Lozenge p.r.n. Tylenol p.r.n. - currently requiring BiPAP for work of breathing, continue supplemental oxygen to maintain O2 sat greater than 92%. Wean as tolerated. (3) Influenza A: Code(s): J10.1 - Influenza due to other identified influenza virus with other respiratory manifestations Status: Acute Assessment and Plan: - tested positive for influenza A on 09/29, symptom onset was 5 days ago - out of window for Tamiflu 75 mg - supportive care, see above - monitor WBC/CBC (4) COPD (chronic obstructive pulmonary disease): Qualifiers: COPD type: COPD with acute exacerbation Qualified Code(s): J44.1 - Chronic obstructive pulmonary disease with (acute) exacerbation Code(s): J44.9 - Chronic obstructive pulmonary disease, unspecified Status: Acute Assessment and Plan: - DuoNeb hao - Solu-Medrol 125-> 60 mg IV q.6 - started on ceftriaxone and azithromycin on 09/29 (5) TAMAR (obstructive sleep apnea): Code(s): G47.33 - Obstructive sleep apnea (adult) (pediatric) Status: Chronic Assessment and Plan: - continue home CPAP (6) Tobacco use: Code(s): Z72.0 - Tobacco use Status: Chronic Assessment and Plan: - 1 PPD x20+ years - denied need for nicotine patch Plan Diet: Heart healthy GI Prophylaxis: Not currently indicated DVT Prophylaxis: Lovenox SQ Lines: Peripheral Code Status: Full code Quality VTE Prophylaxis VTE prophylaxis: pharmacologic ordered Hospitalist [facility] Advance Care Plan I have confirmed that the patient's Advanced Care Plan is present, code status is documented, or surrogate decision maker is listed in patient medical record.: Yes Medication Reconciliation I have utilized all available resources to obtain, update and review the patients current medications (includes all prescriptions, OTC, herbals, cannabis, and nutritional supplements).: Yes
--- OUTSIDE RECORDS SUMMARY | 2024-09-29 15:19 | XMS_ITS | Clinical Summary ---
Author Organization [facility] Address [address] [place] [address] Care Team Providers Care Gender Studies Professor Name Role Phone Po Anderson MD Primary Care Provider [phone] Source Comments [facility],non-owned Affiliates and Associated Physician Practices is amultiple site organization consisting of ambulatory clinics and hospital sitesin [place], [place], [place] and [place]. This disclosure is being madepursuant to the Care Everywhere program and may not contain all information available regarding this patient. Last updated 18.[facility] Immunizations Name Administration Dates Next Due INFLUENZA VACCINE, HIGH-DOSE , QUADR. (FLUZONE HIGH-DOSE QUADRIVALENT; 65Y+), 0.7 ML (HD-[id number]) 03/30/2020 Social History Tobacco Use Types Packs/Day Years Used Date Smoking Tobacco: Never Assessed Sex and Gender Information Value Date Recorded Sex Assigned at Not on file Gender Identity Not on file Sexual Orientation Not on file Plan of Treatment Health Maintenance Due Date Last Done Comments COLOGUARD (AGES 45-75) - COL ON CA SCREENING 1953 COLON MONITORING 1953 COLONOSCOPY - COLON CA SCREENING 1953 CT COLONOGRAPHY - COLON CA SCREENING 1953 Colorectal Cancer Screening 1953 FIT - COLON CA SCREENING 1953 FLEX SIG - COLON CA SCREENING 1953 LIPID TESTING 1953 HEPATITIS C SCREENING 06/14/1971 DTAP/TDAP/TD VACCINES (1 - Tdap) 1972 PNEUMOCOCCAL VACCINE 50+ (1 of 1 - PCV) 2003 ZOSTER VACCINE (1 of 2) 2003 COVID-19 VACCINE (2023-2 5 season) 2024 INFLUENZA VACCINE (#1) 2024 03/30/2020 DEPRESSION SCREENING 07/01/2024 Respiratory Syncytial Virus (RSV) Vaccine Pt: or over 60 yrs (1 - 1-dose 75+ series) 2028 HEPATITIS B VACCINE Aged Out No longe r eligible based on patient's age to complete this topic HIB VACCINE Aged Out No longer eligi ble based on patient's age to complete this topic HPV VACCINE Aged Out No longer eligi ble based on patient's age to complete this topic MENINGOCOCCAL (Group B) VACC INE SHARED DECISION-MAKING Aged Out No longer eligibl e based on patient's age to complete this topic MENINGOCOCCAL GROUPS A/C/Y/W VACCINE Aged Out No longer eligible b ased on patient's age to complete this topic Care Teams Gender Studies Professor Relationship Specialty Start Date End Date Po Anderson MD [address] [place] [id number] PCP - General 08/31/22
--- OUTSIDE RECORDS SUMMARY | 2024-09-29 15:19 | XMS_ITS | Referral Summary ---
Author Organization [address] Address [address] [place] [address] Care Team Providers Care Tube Draw Helper Name Role Phone Po Anderson MD Primary Care Provider [phone] Allergies No known active allergies Medications Anoro Ellipta 62.5-25 mcg/actuation blister with device INHALE 1 DOSE BY MOUTH ONCE DAILY DIRECTED 0 Active citalopram (CeleXA) 20 mg tablet Take 20 mg by mouth daily 0 Active furosemide (LASIX) 20 mg tablet furosemide 20 mg tablet TAKE 1 TABLET BY MOUTH ONCE DAILY FOR EDEMA Active albuterol HFA (PROVENTIL HFA,VENTOLIN HFA,PROAIR HFA) 90 mcg/actuation inhaler every 4 hours Active cholecalciferol (VITAMIN D-3) 25 mcg (1,000 unit) tabletIndicatio ns:Vitamin D Deficiency Take 1,000 Units by mouth daily Active triamcinolone (KENALOG) 0.1 % ointment APPLY TO LEGS TWICE DAILY NEEDED. 1 Active phenytoin ER (DILANTIN) 100 mg ER capsule Take 200 mg by mouth 2 (two) times a day 1 Active Active Problems Problem Noted Date Diagnosed Date Lymphadenopathy 06/29/2020 Immunizations Immunization Administration Dates Next Due Influenza, Quadrivalent, Hig h Dose, Preservative Free, Intrr 03/30/2020 Influenza, Quadrivalent, Spl it, Preservative Free, Intramuscular 05/03/2018 Pfizer SARS-CoV-2 Monovalent Vaccination (12+ Yrs) PURPLE 09/13/2020,08/23/2020 Social History Tobacco Use Types Packs/Day Years Used Date Smoking Tobacco: Former Smokeless Tobacco: Never Personal Safety Answer Date Recorded Getting School Help Needed Not on file 06/23 Sex and Gender Information Value Date Recorded Sex Assigned at Not on file Legal 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 Gender Identity Not on file Sexual Orientation Not on file Last Filed Vital Signs Vital Sign Reading Time Taken Comments Blood Pressure 107/67 10/27/2020 10:03 AM CDT Pulse 89 10/27/2020 10:03 AM CDT Temperature 36.6 C (97.9 F) 10/27/2020 10:03 AM CDT Respiratory Rate 16 10/27/2020 10:03 AM CDT Oxygen Saturation 97% 10/27/2020 10:03 AM CDT Inhaled Oxygen Concentration - - Weight 107.5 kg (237 lb) 10/27/2020 10:03 AM CDT Height 177.7 cm (5' 9.96 ) 08/04/2020 1:18 PM CS T Body Mass Index 34.04 08/04/2020 1:18 PM SENIOR ENLISTED ADVISOR Plan of Treatment Not on file Procedures Procedure Name Priority Date/Time Associated Diagnosis Comments CT CHEST ABDOMEN PELVIS W CONTRAST Schedule TRACY, Read TRACY (Appt Today, Awaiting Results) 10/27/2020 9:03 AM CDT Lymphadenopathy HEPATITIS C ANTIBODY Routine 08/04/2020 12:49 PM SENIOR ENLISTED ADVISOR Lymphadenopathy from Last 3 Months or Most Recently Relevant to Health Maintenance Results * CT Chest Abdomen Pelvis W Contrast (10/27/2020 9:03 AM CDT) Anatomical Region Laterality Modality Body N/A Computed Tomogra phy 10/27/2020 9:11 AM CDT Impressions 10/27/2020 9:11 AM CDT 1. No change in lymphadenopathy within the mediastinum and multiple small numerous lymph nodes in the axilla and retroperitoneum. These lymph nodes are nonspecific as many of these contain fatty frederick. At the minimum consider follow-up in 6 months. 2. Stable right lower lobe nodule. This can also be followed in 6 months. 3. 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 Electronically signed by: Barrett Raza M.D. Narrative 10/27/2020 9:11 AM CDT EXAMINATION: CT CHEST, ABDOMEN AND PELVIS WITH INTRAVENOUS CONTRAST TECHNIQUE: Standard CT of the chest, abdomen and pelvis was performed after the administration of intravenous contrast. Studies were performed after the administration of the following amount of Optiray 350: 100 mL HISTORY: Lymphadenopathy FINDINGS: Comparison is made to prior study of 07/14/2020 Chest: Mild basilar atelectasis is seen with mild mosaic attenuation lung bases likely representing a component of small airways disease. There is some mild emphysema in the upper lobes. 1 cm soft tissue nodule is seen at slice position 64.5 which is indeterminate. This is unchanged. Other areas of groundglass could represent some resolving pulmonary edema have improved compared to the prior study. Tiny axillary lymph nodes are seen which are less than 1 cm in size. These are unchanged when compared to the prior study. There is no supraclavicular lymphadenopathy. Mildly enlarged mediastinal lymph nodes are again seen without change compared to the prior study. An example is one in the right paratracheal region with a short axis measurement of 1.7 cm. Bilateral small hilar lymph nodes are identified but there is no pleural or pericardial effusion. Abdomen/pelvis: The spleen and adrenal glands are normal. The pancreas is unremarkable. There is increased stranding within the root of the mesentery with small is enteric lymph nodes but the appearance of the mesentery is more suggestive of mesenteric panniculitis or lymphoma. The liver is mildly nodular but without a focal lesion seen. The gallbladder is decompressed. The adrenal glands are symmetric bilaterally. Both kidneys are symmetric without hydronephrosis. Multiple small retroperitoneal lymph nodes are seen which are all subcentimeter. Inguinal lymph nodes are seen as well as external iliac lymph nodes which contain fatty frederick and are without change. The urinary bladder is fluid-filled but not thick-walled. Multiple diverticula are seen throughout the colon but there is no diverticulitis. The small bowel is decompressed without any wall thickening or evidence for obstruction. A small ventral hernia containing fat is seen but no bowel. The bone windows do not demonstrate any osseous lesions. Stable compression deformities seen of L1. Procedure Note Barrett Raza MD - 10/27/2020 EXAMINATION: CT CHEST, ABDOMEN AND PELVIS WITH INTRAVENOUS CONTRAST TECHNIQUE: Standard CT of the chest, abdomen and pelvis was performed after the administration of intravenous contrast. Studies were performed after the administration of the following amount of Optiray 350: 100 mL HISTORY: Lymphadenopathy FINDINGS: Comparison is made to prior study of 07/14/2020 Chest: Mild basilar atelectasis is seen with mild mosaic attenuation lung bases likely representing a component of small airways disease. There is some mild emphysema in the upper lobes. 1 cm soft tissue nodule is seen at slice position 64.5 which is indeterminate. This is unchanged. Other areas of groundglass could represent some resolving pulmonary edema have improved compared to the prior study. Tiny axillary lymph nodes are seen which are less than 1 cm in size. These are unchanged when compared to the prior study. There is no supraclavicular lymphadenopathy. Mildly enlarged mediastinal lymph nodes are again seen without change compared to the prior study. An example is one in the right paratracheal region with a short axis measurement of 1.7 cm. Bilateral small hilar lymph nodes are identified but there is no pleural or pericardial effusion. Abdomen/pelvis: The spleen and adrenal glands are normal. The pancreas is unremarkable. There is increased stranding within the root of the mesentery with small is enteric lymph nodes but the appearance of the mesentery is more suggestive of mesenteric panniculitis or lymphoma. The liver is mildly nodular but without a focal lesion seen. The gallbladder is decompressed. The adrenal glands are symmetric bilaterally. Both kidneys are symmetric without hydronephrosis. Multiple small retroperitoneal lymph nodes are seen which are all subcentimeter. Inguinal lymph nodes are seen as well as external iliac lymph nodes which contain fatty frederick and are without change. The urinary bladder is fluid-filled but not thick-walled. Multiple diverticula are seen throughout the colon but there is no diverticulitis. The small bowel is decompressed without any wall thickening or evidence for obstruction. A small ventral hernia containing fat is seen but no bowel. The bone windows do not demonstrate any osseous lesions. Stable compression deformities seen of L1. IMPRESSION: 1. No change in lymphadenopathy within the mediastinum and multiple small numerous lymph nodes in the axilla and retroperitoneum. These lymph nodes are nonspecific as many of these contain fatty frederick. At the minimum consider follow-up in 6 months. 2. Stable right lower lobe nodule. This can also be followed in 6 months. 3. 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 Electronically signed by: Barrett Raza M.D. Amber Wagner MD IMG CT PROCEDURES Final Re sult * Hepatitis C antibody (08/04/2020 12:49 PM SENIOR ENLISTED ADVISOR) Hep C Ab Nonreactive Nonreactive [facility] Comment:Antibodies to HCV no t detected. Does NOT exclude the possibility of recent exposure to HCV. Blood specimen (specimen) 08/04/2020 12:49 PM SENIOR ENLISTED ADVISOR 08/04/2020 1:34 PM SENIOR ENLISTED ADVISOR Amber Wagner MD LAB MICROBIOLOGY - GENERAL ORDERABLES Edited Result - Final [facility] Department [place] [address] from Last 3 Months or Most Recently Relevant to Health Maintenance Insurance MEDICARE ADVANTAGE Care Teams Tube Draw Helper Relationship Specialty Start Date End Date Po Anderson MD [address] [place] [address] PCP - General Family Medicine 07/20/20
--- OUTSIDE RECORDS SUMMARY | 2024-09-29 15:19 | XMS_ITS | Clinical Summary ---
Author Organization [address] Address [address] [place] [address] Care Team Providers Care Communications Media Professor Name Role Phone Po Anderson MD Primary Care Provider [phone] Allergies No known active allergies Medications Anoro [...] SARS-CoV-2 Monovalent Vaccination (12+ Yrs) PURPLE 09/13/2020,08/23/2020 Surgical History Surgery Date Site/Laterality Comments US GUIDED BIOPSY LYMPH NODE SUPERFICIAL LEFT 08/04/2020 N/A Social History Tobacco Use Types Packs/Day Years Used Date Smoking Tobacco: Former Smokeless Tobacco: Never Personal Safety Answer Date Recorded Getting School Help Needed Not on file 06/23 Sex and Gender Information Value Date Recorded Sex Assigned at Not on file 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 Gender Identity Not on file Sexual Orientation Not on file Obstetrics History Last Filed Vital Signs Vital Sign Reading [...] Body Mass Index 34.04 08/04/2020 1:18 PM SOLAR MECHANICAL ENGINEER Plan of Treatment Health Maintenance Due Date Last Done Comments Colon Cancer Screening-Colonoscopy 1955 Depression Screening 1955 Fall Risk Assessment 1955 DTaP/Tdap/Td Vaccine (1 - Tdap) 1964 Hepatitis B Screening 1971 Pneumococcal vaccine 65+ (1 of 2 - PCV) 1972 Zoster Vaccine (1 of 2) 1972 Well Visit 65+ 2018 Covid-19 Vaccine (3 - Pfizer risk series) 10/11/2020 09/13/2020, 08/23/2020 Influenza Vaccine (#1) 2024 03/30/2020, 2017 Hepatitis C Screening Completed 08/04/2020 Abdominal Aortic Aneurysm (AAA) Screen Completed Procedures Procedure Name Priority Date/Time Associated Diagnosis Comments CT CHEST ABDOMEN PELVIS W CONTRAST Schedule TRACY, Read TRACY (Appt Today, Awaiting Results) 10/27/2020 9:03 AM CDT Lymphadenopathy HEPATITIS C ANTIBODY Routine 08/04/2020 12:49 PM SOLAR MECHANICAL ENGINEER Lymphadenopathy from Last 3 Months or Most [...] * Hepatitis C antibody (08/04/2020 12:49 PM SOLAR MECHANICAL ENGINEER) Hep C Ab Nonreactive Nonreactive [facility] Comment:Antibodies to HCV no t detected. Does NOT exclude the possibility of recent exposure to HCV. Blood specimen (specimen) 08/04/2020 12:49 PM SOLAR MECHANICAL ENGINEER 08/04/2020 1:34 PM SOLAR MECHANICAL ENGINEER Amber Wagner MD LAB MICROBIOLOGY - GENERAL ORDERABLES Edited Result - Final [facility] Department [place] [address] from Last 3 Months or Most Recently Relevant to Health Maintenance Insurance [facility] MEDICARE ADVANTAGE [facility] Address: [facility] [id number] [place] [id number] Care Teams Communications Media Professor Relationship Specialty Start Date End Date Po Anderson MD [address] [place] [id number] PCP - General Family Medicine 07/20/20
--- OUTSIDE RECORDS SUMMARY | 2024-09-29 15:19 | XMS_ITS | Data Portability ---
Author Organization [place] - [facility], Main Office Address [address] [place] [address] Assessment No assessment recorded. Plan of Treatment Reminders Order Date Submit Date Provider Last Modified By Organization Details Last Modified Time Details Appointments None recorded. Lab None recorded. Referral None recorded. Procedures None recorded. Surgeries None recorded. Imaging CT, chest, w/o contrast - approved [id number] 05/03/23-10/29 023 [email or web address] Not available 09:41:47 Medication Orders Anoro Ellipta 62.5 mcg-25 mcg/actuati on powder for inhalation 2022 023 [facility] [address] [place], [address], 3 14:49:20 albuterol sulfate HFA 90 mcg/actuati on aerosol inhaler 2022 023 [facility] [address] [place], [address], 3 14:49:18 Anoro Ellipta 62.5 mcg-25 mcg/actuati on powder for inhalation 2022 023 [facility] [address] [place], [address], 3 15:28:20 albuterol sulfate HFA 90 mcg/actuati on aerosol inhaler 2022 023 [facility] [address] [place], [address], 15:28:17 Patient TargetsNo targets recorded. Patient Instructions Encounter Date Encounter Id Patient Instructions Last Modified By Organization Details Last Modified Time 10/29/2022 [id number] complete PFT w/ post bronchodilator spirometry* [email or web address] Not available 11/19/2022 15:14:03 six minute walk test* - November 16, 2022 arrive at 2:30pm apt 3pm [email or web address] Not available 06/05/2023 10:53:14 Reason for Referral None Reported. Results Created Date Observation Date Name Description Value Unit Range Abnormal Flag Note LastModifiedBy Organization Detail LastModifiedTime 09/23/1910/03/2021 QUANT IFERO N(R)- TB GOLD PLUS, 1 TUBE quantiferon( R)-TB gold plus, 1 tube negati ve negati ve normal Negat lalo test resul t. M. tuber culos is compl ex infec tion unlik harmony. Not Available [address], [address], 10/03/2021 14:46:45 09/23/19 22 10/03/2021 QUANT IFERO N(R)- TB GOLD PLUS, 1 TUBE nil 0.01 IU/mL normal Not Available [address], [address], 10/03/2021 14:46:45 09/23/19 22 10/03/2021 QUANT IFERO N(R)- TB GOLD PLUS, 1 TUBE mitogen-nil >10.00 IU/mL normal Not Available [address], [address], 10/03/2021 14:46:45 09/23/19 22 10/03/2021 QUANT IFERO N(R)- TB GOLD PLUS, 1 TUBE TB1-nil 0.01 IU/mL normal Not Available [address], [address], 10/03/2021 14:46:45 09/23/19 22 10/03/2021 QUANT IFERO N(R)- TB GOLD PLUS, 1 TUBE TB2-nil 0.01 IU/mL normal The Nil tube value refle cts the backg round inter feron gamma immun e respo nse of the patie nt's blood sampl e. This value has been subtr acted from the patie nt's displ ayed TB and Mitog en resul ts. Lower than expec godwin resul ts with the Mitog en tube preve nt false -nega tive Quant ifero n readi ngs by detec ting a patie nt with a poten tial immun e suppr essiv e condi tion and/o r subop timal pre-a nalyt ical speci men handl ing. The TB1 Antig en tube is coate d with the M. tuber culos is-sp ecifi c antig ens desig alesha to elici t respo nses from TB antig en prime d CD4+ helpe r T-lym phocy melva. The TB2 Antig en tube is coate d with the M. tuber culos is-sp ecifi c antig ens desig alesha to elici t respo nses from TB antig en prime d CD4+ helpe r and CD8+ cytot oxic T-lym phocy melva. For addit ional infor wen liang e refer to https ://ed yanetati on.qu yuki IPXI/f aq/FA Q204 (This link is being provi ded for infor francia greene/ susana goodson purpo ses only. ) Not Available [facility] [address], [address], 10/03/2021 14:46:45 09/23/19 22 10/03/2021 B TYPE NATRI URETI C PEPTI DE (BNP) B type natriuretic peptide (BNP) 14 pg/mL <100 normal BNP level s incre ase with age in the gener al popul ation with the highe st value s seen in indiv idual s great er than 75 years of age. Refer ence: J. Am. Naman. Cardi ol. 2002; 40:97 6-982 . Not Available [employer] [facility] [id number] [place] [address], [place], [address], 10/03/2021 14:46:45 09/23/19 22 10/03/2021 ALPHA -1-AN TITRY PSIN (AAT) PHENO TYPE [id number] trypsin (aat) phenotype see note THIS PATIE NT'S ALPHA -1-AN TITRY PSIN PHENO TYPE IS PI*MM . 90% of levon l indiv idual s have the MM pheno type, with levon l quant itati ve AAT level s. Many pheno typic patte rns have been descr ibed, inclu ding defic iency state s with F, S, Z, or other allel es. As a gener al estim ation , fernanda red to M allel e of 100% of levon l A-1-A ntitr ypsin prote in, the S allel e produ hernán appro ximat harmony 60% and the Z allel e 20%. For examp le, an MS pheno type would have about 80% of levon l A-1-A ntitr ypsin prote in level , a 50% contr ibuti on from the M allel e and 30% from the S allel e. A ZZ pheno type would have about 20% of levon l level s, a 10% contr ibuti on from each Z gene. The F allel e has levon l A-1-A ntitr ypsin level s, but the kinet ics of elast ase inhib ition is not as effic ient as an M allel e produ ct; F allel es shoul d be consi dered funct ional ly mildl y defic ient. Other varia nts are ident ifiab le by pheno typic harmony sis. These inclu de CM, DP, EM, GM, IS, LM, M1M2, M3M3, MP, MT, XX, MY, and M1N. I, P, T and null allel es are consi dered delet eriou s. C, D, E, G, L, M1, M2, M3, X and Y allel es are gener ally consi dered levon l varia nts. The MZ-Pr att pheno type is a levon l varia nt; care shoul d be taken to avoid confu john with the defic ient MZ pheno type. Not Available [address], [address], 10/03/2021 14:46:44 09/23/19 22 10/03/2021 ALPHA -1-AN TITRY PSIN QN [id number] trypsin qn 169 mg/dL 83-199 normal Not Available [address], [address], 10/03/2021 14:46:44 09/23/19 22 10/03/2021 EOSIN OPHIL COUNT (B) white blood cell count 10.3 thous and/u L 3.8-10 .8 normal Not Available [address], [address], 10/03/2021 14:46:43 09/23/19 22 10/03/2021 EOSIN OPHIL COUNT (B) absolute eosinophils 196 cells /uL 15-500 normal Not Available [address], [address], 10/03/2021 14:46:43 09/23/19 22 10/03/2021 EOSIN OPHIL COUNT (B) eosinophils 1.9 % normal Not Available [address], [address], 10/03/2021 14:46:43 09/23/19 22 10/03/2021 IMMUN OGLOB ULIN G SUBCL ASSES PANEL immunoglobul in g subclass 1 588 mg/dL 382-92 9 Not Available [address], [address], 10/03/2021 14:46:43 09/23/19 22 10/03/2021 IMMUN OGLOB ULIN G SUBCL ASSES PANEL immunoglobul in g subclass 2 518 mg/dL 241-70 0 Not Available [address], [address], 10/03/2021 14:46:43 09/23/19 22 10/03/2021 IMMUN OGLOB ULIN G SUBCL ASSES PANEL immunoglobul in g subclass 3 121 mg/dL 22-178 Not Available [address], [address], 10/03/2021 14:46:43 09/23/19 22 10/03/2021 IMMUN OGLOB ULIN G SUBCL ASSES PANEL immunoglobul in g subclass 4 116.9 mg/dL 4.0-86 .0 high Not Available [address], [address], 10/03/2021 14:46:43 09/23/19 22 10/03/2021 IMMUN OGLOB ULIN G SUBCL ASSES PANEL immunoglobul in g, serum 1367 mg/dL 600-15 40 Not Available [address], [address], 10/03/2021 14:46:43 09/23/19 22 10/03/2021 MEASL ES, MUMPS , AND RUBEL LA (MMR) AB (IGG) PANEL , IMMUN E STATU S measles Ab (IgG), immune status >300.0 0 AU/mL normal AU/mL Inter preta tion ----- ----- ----- ---- <13.5 0 Not consi stent with immun ity 13.50 -16.4 9 Equiv ocal >16.4 9 Consi stent with immun ity The prese nce of measl es IgG sugge sts immun izati on or past or curre nt infec tion with measl es virus . For addit ional perlar wen liang e refer to http: //niruka nurQue stDia gnost ics.c om/fa q/FAQ 162 (This link is being provi ded for infor francia greene/ educalvin casper l purpo ses only. ) Not Available [address], [address], 10/03/2021 14:46:42 09/23/19 22 10/03/2021 MEASL ES, MUMPS , AND RUBEL LA (MMR) AB (IGG) PANEL , IMMUN E STATU S mumps virus Ab (IgG), immune status 96.60 AU/mL normal AU/mL Inter preta tion ----- -- ----- ----- ----- - <9.00 Not consi stent with immun ity 9.00- 10.99 Equiv ocal >10.9 9 Consi stent with immun ity The prese nce of mumps IgG antib nahomy sugge sts immun izati on or past or curre nt infec tion with mumps virus . Not Available [employer] [address], [address], 10/03/2021 14:46:42 09/23/19 22 10/03/2021 MEASL ES, MUMPS , AND RUBEL LA (MMR) AB (IGG) PANEL , IMMUN E STATU S rubella Ab (IgG), immune status >33.00 index normal Index Inter preta tion ----- ----- ----- ---- <0.90 Not consi stent with immun ity 0.90- 0.99 Equiv ocal > or = 1.00 Consi stent with immun ity The prese nce of rubel la IgG antib nahomy sugge sts immun izati on or past or curre nt infec tion with rubel la virus . Not Available [employer] [address], [address], 10/03/2021 14:46:42 09/23/19 22 10/03/2021 INTER PRETA TION interpretati on Speci fic Level of Aller gen IGE Class kU/L Speci fic IGE Antib nahomy ----- ----- ---- ----- ----- ----- ---- 0 <0.10 Absen t/Und etect able 0/1 0.10- 0.34 Very Low Level 1 0.35- 0.69 Low Level 2 0.70- 3.49 Moder ate Level 3 3.50- 17.4 High Level 4 17.5- 49.9 Very High Level 5 50-10 0 Very High Level 6 >100 Very High Level The clini lamonte relev ance of aller gen resul ts of 0.10- 0.34 kU/L are undet ermin ed and inten ded for speci alist use. Aller gens denot ed with a inclu de resul ts using one or more harmony te speci fic reage nts. In those cases , the test was devel oped and its harmony tical perfo rmanc e marta cteri stics have been deter mined by [facility]. It has not been clear ed or appro rona by the U.S. Food and Drug Admin istra tion. This assay has been valid ated pursu ant to the CLIA regul ation s and is used for clini lamonte purpo ses. Not Available [employer] [address] [address] [place], [address], 10/03/2021 14:46:42 09/23/19 22 10/03/2021 RESPI RATOR Y ALLER GY PROFI LE REGIO N VIII dermatophago ides pteronyssinu s (D1) IgE <0.10 kU/L normal Not Available [employer] [address] [address] [place], [address], 10/03/2021 14:46:41 09/23/19 22 10/03/2021 RESPI RATOR Y ALLER GY PROFI LE REGIO N VIII class 0 Not Available [employer] [address] [address] [place], [address], 10/03/2021 14:46:41 09/23/19 22 10/03/2021 RESPI RATOR Y ALLER GY PROFI LE REGIO N VIII dermatophago ides farinae (D2) IgE 0.12 kU/L high Not Available [employer] [address] [address] [place], [address], 10/03/2021 14:46:41 09/23/19 22 10/03/2021 RESPI RATOR Y ALLER GY PROFI LE REGIO N VIII class 0/1 Not Available [address], [address], 10/03/2021 14:46:41 09/23/19 22 10/03/2021 RESPI RATOR Y ALLER GY PROFI LE REGIO N VIII penicillium notatum (M1) IgE <0.10 kU/L normal Not Available [address], [address], 10/03/2021 14:46:41 09/23/19 22 10/03/2021 RESPI RATOR Y ALLER GY PROFI LE REGIO N VIII class 0 Not Available [address], [address], 10/03/2021 14:46:41 09/23/19 22 10/03/2021 RESPI RATOR Y ALLER GY PROFI LE REGIO N VIII cladosporium herbarum (M2) IgE <0.10 kU/L normal Not Available [address], [address], 10/03/2021 14:46:41 09/23/19 22 10/03/2021 RESPI RATOR Y ALLER GY PROFI LE REGIO N VIII class 0 Not Available [address], [address], 10/03/2021 14:46:41 09/23/19 22 10/03/2021 RESPI RATOR Y ALLER GY PROFI LE REGIO N VIII aspergillus fumigatus (M3) IgE <0.10 kU/L normal Not Available [address], [address], 10/03/2021 14:46:41 09/23/19 22 10/03/2021 RESPI RATOR Y ALLER GY PROFI LE REGIO N VIII class 0 Not Available [address] [address] [place], [address], 10/03/2021 14:46:41 09/23/19 22 10/03/2021 RESPI RATOR Y ALLER GY PROFI LE REGIO N VIII alternaria alternata (M6) IgE <0.10 kU/L normal Not Available [address], [address], 10/03/2021 14:46:41 09/23/19 22 10/03/2021 RESPI RATOR Y ALLER GY PROFI LE REGIO N VIII class 0 Not Available [address], [address], 10/03/2021 14:46:41 09/23/19 22 10/03/2021 RESPI RATOR Y ALLER GY PROFI LE REGIO N VIII CAT dander (E1) IgE <0.10 kU/L normal Not Available [address] [address] [place], [address], 10/03/2021 14:46:41 09/23/19 22 10/03/2021 RESPI RATOR Y ALLER GY PROFI LE REGIO N VIII class 0 Not Available [address], [address], 10/03/2021 14:46:41 09/23/19 22 10/03/2021 RESPI RATOR Y ALLER GY PROFI LE REGIO N VIII dog dander (E5) IgE <0.10 kU/L normal Not Available [address], [address], 10/03/2021 14:46:41 09/23/19 22 10/03/2021 RESPI RATOR Y ALLER GY PROFI LE REGIO N VIII class 0 Not Available [address], [address], 10/03/2021 14:46:41 09/23/19 22 10/03/2021 RESPI RATOR Y ALLER GY PROFI LE REGIO N VIII cockroach (I6) IgE <0.10 kU/L normal Not Available [address], [address], 10/03/2021 14:46:41 09/23/19 22 10/03/2021 RESPI RATOR Y ALLER GY PROFI LE REGIO N VIII class 0 Not Available [address], [address], 10/03/2021 14:46:41 09/23/19 22 10/03/2021 RESPI RATOR Y ALLER GY PROFI LE REGIO N VIII maple (box elder) (T1) IgE <0.10 kU/L normal Not Available [address], [address], 10/03/2021 14:46:41 09/23/19 22 10/03/2021 RESPI RATOR Y ALLER GY PROFI LE REGIO N VIII class 0 Not Available [address], [address], 10/03/2021 14:46:41 09/23/19 22 10/03/2021 RESPI RATOR Y ALLER GY PROFI LE REGIO N VIII mountain cedar (T6) IgE <0.10 kU/L normal Not Available [address], [address], 10/03/2021 14:46:41 09/23/19 22 10/03/2021 RESPI RATOR Y ALLER GY PROFI LE REGIO N VIII class 0 Not Available [address], [address], 10/03/2021 14:46:41 09/23/19 22 10/03/2021 RESPI RATOR Y ALLER GY PROFI LE REGIO N VIII walnut tree (T10) IgE <0.10 kU/L normal Not Available [address] [address] [address] , [place], [address], 10/03/2021 14:46:41 09/23/19 22 10/03/2021 RESPI RATOR Y ALLER GY PROFI LE REGIO N VIII class 0 Not Available [address] [address] [place], [address], 10/03/2021 14:46:41 09/23/19 22 10/03/2021 RESPI RATOR Y ALLER GY PROFI LE REGIO N VIII sycamore (T11) IgE <0.10 kU/L normal Not Available [address] [address] [place], [address], 10/03/2021 14:46:41 09/23/19 22 10/03/2021 RESPI RATOR Y ALLER GY PROFI LE REGIO N VIII class 0 Not Available [address] [address] [facility] [place], [address], 10/03/2021 14:46:41 09/23/19 22 10/03/2021 RESPI RATOR Y ALLER GY PROFI LE REGIO N VIII cottonwood (T14) IgE <0.10 kU/L normal Not Available [address] [address] [place], [address], 10/03/2021 14:46:41 09/23/19 22 10/03/2021 RESPI RATOR Y ALLER GY PROFI LE REGIO N VIII class 0 Not Available [facility] [address] [address] [place], [address], 10/03/2021 14:46:41 09/23/19 22 10/03/2021 RESPI RATOR Y ALLER GY PROFI LE REGIO N VIII white saira (T15) IgE <0.10 kU/L normal Not Available [address] [address] [place], [address], 10/03/2021 14:46:41 09/23/19 22 10/03/2021 RESPI RATOR Y ALLER GY PROFI LE REGIO N VIII class 0 Not Available [address], [address], 10/03/2021 14:46:41 09/23/19 22 10/03/2021 RESPI RATOR Y ALLER GY PROFI LE REGIO N VIII oak (T7) IgE <0.10 kU/L normal Not Available [address], [address], 10/03/2021 14:46:41 09/23/19 22 10/03/2021 RESPI RATOR Y ALLER GY PROFI LE REGIO N VIII class 0 Not Available [address], [address], 10/03/2021 14:46:41 09/23/19 22 10/03/2021 RESPI RATOR Y ALLER GY PROFI LE REGIO N VIII elm (T8) IgE <0.10 kU/L normal Not Available [address], [address], 10/03/2021 14:46:41 09/23/19 22 10/03/2021 RESPI RATOR Y ALLER GY PROFI LE REGIO N VIII class 0 Not Available [address], [address], 10/03/2021 14:46:41 09/23/19 22 10/03/2021 RESPI RATOR Y ALLER GY PROFI LE REGIO N VIII hickory/peca n tree (T22) IgE <0.10 kU/L normal Not Available [address], [address], 10/03/2021 14:46:41 09/23/19 22 10/03/2021 RESPI RATOR Y ALLER GY PROFI LE REGIO N VIII class 0 Not Available [address] [address] [place], [address], 10/03/2021 14:46:41 09/23/19 22 10/03/2021 RESPI RATOR Y ALLER GY PROFI LE REGIO N VIII white mulberry (T70) IgE <0.10 kU/L normal Not Available [address], [address], 10/03/2021 14:46:41 09/23/19 22 10/03/2021 RESPI RATOR Y ALLER GY PROFI LE REGIO N VIII class 0 Not Available [address], [address], 10/03/2021 14:46:41 09/23/19 22 10/03/2021 RESPI RATOR Y ALLER GY PROFI LE REGIO N VIII bermuda grass (g2) IgE <0.10 kU/L normal Not Available [address], [address], 10/03/2021 14:46:41 09/23/19 22 10/03/2021 RESPI RATOR Y ALLER GY PROFI LE REGIO N VIII class 0 Not Available [address], [address], 10/03/2021 14:46:41 09/23/19 22 10/03/2021 RESPI RATOR Y ALLER GY PROFI LE REGIO N VIII gabby grass (g6) IgE 3.52 kU/L high Not Available [address], [address], 10/03/2021 14:46:41 09/23/19 22 10/03/2021 RESPI RATOR Y ALLER GY PROFI LE REGIO N VIII class 3 Not Available [address], [address], 10/03/2021 14:46:41 09/23/19 22 10/03/2021 RESPI RATOR Y ALLER GY PROFI LE REGIO N VIII common ragweed (short) (W1) IgE 1.19 kU/L high Not Available [address], [address], 10/03/2021 14:46:41 09/23/19 22 10/03/2021 RESPI RATOR Y ALLER GY PROFI LE REGIO N VIII class 2 Not Available [address], [address], 10/03/2021 14:46:41 09/23/19 22 10/03/2021 RESPI RATOR Y ALLER GY PROFI LE REGIO N VIII rough pigweed (W14) IgE <0.10 kU/L normal Not Available [facility] [address], [address], 10/03/2021 14:46:41 09/23/19 22 10/03/2021 RESPI RATOR Y ALLER GY PROFI LE REGIO N VIII class 0 Not Available [address], [address], 10/03/2021 14:46:41 09/23/19 22 10/03/2021 RESPI RATOR Y ALLER GY PROFI LE REGIO N VIII uruguayan thistle (W11) IgE <0.10 kU/L normal Not Available [address], [address], 10/03/2021 14:46:41 09/23/19 22 10/03/2021 RESPI RATOR Y ALLER GY PROFI LE REGIO N VIII class 0 Not Available [address], [address], 10/03/2021 14:46:41 09/23/19 22 10/03/2021 RESPI RATOR Y ALLER GY PROFI LE REGIO N VIII rough land elder (W16) IgE <0.10 kU/L normal Not Available [address] [address] [place], [address], 10/03/2021 14:46:41 09/23/19 22 10/03/2021 RESPI RATOR Y ALLER GY PROFI LE REGIO N VIII class 0 Not Available [address], [address], 10/03/2021 14:46:41 09/23/19 22 10/03/2021 RESPI RATOR Y ALLER GY PROFI LE REGIO N VIII mouse urine proteins (E72) IgE <0.10 kU/L normal Not Available [address], [address], 10/03/2021 14:46:41 09/23/19 22 10/03/2021 RESPI RATOR Y ALLER GY PROFI LE REGIO N VIII class 0 Not Available [address], [address], 10/03/2021 14:46:41 09/23/19 22 10/03/2021 RESPI RATOR Y ALLER GY PROFI LE REGIO N VIII immunoglobul in E 149 kU/L <or=11 4 high Not Available [address], [address], 10/03/2021 14:46:41 10/27/19 22 10/19/2021 noctu rnal pulse oxime try* No observ ation record ed. [id number] [facility] [address] [facility] [address], [place], [address], 08/29/2022 05:03:40 10/27/19 22 08/31/2021 CPAP compl iance * No observ ation record ed. [id number] [facility] [address] [place] [address], [place], [address], 08/29/2022 05:03:40 01/03/20 22 12/28/2021 polys omnog kenzie, titra tion study No observ ation record ed. [id number] Not Available 08/29/2022 05:03:40 01/11/20 22 01/29/2020 polys omnog kenzie, titra tion study No observ ation record ed. [id number] [facility] [address] [place], [address], 08/29/2022 05:03:40 04/05/20 22 04/03/2022 LDCT, chest , for lung cance r scree gonzalez No observ ation record ed. [id number] [facility] [address] [place], [address], 08/29/2022 05:03:40 04/05/20 22 02/14/2022 oxime try monit oring overn ight No observ ation record ed. [id number] Not Available 08/29/2022 05:03:40 04/05/20 22 03/03/2022 oxime try monit oring overn ight No observ ation record ed. [id number] Not Available 08/29/2022 05:03:40 04/11/20 22 04/06/2022 , [facility] ardio gram, trans thora cic, compl ete, w/ color flow No observ ation record ed. [id number] [facility], [place], [address], 08/29/2022 05:03:40 10/16/19 23 10/12/2022 CT, chest , w/o contr ast No observ ation record ed. [email or web address] Not Available 16:36:01 11/20/19 23 11/16/2022 compl ete PFT w/ post [facility] hodil ator mayi metry * No observ ation record ed. [email or web address] [facility] (Resp Services) [address] [place] [address] [facility], [place], [address], 12/07/2022 14:31:18 12/04/19 23 11/16/2022 compl ete PFT w/ post [facility] hodil ator mayi metry * No observ ation record ed. [email or web address] [facility] (Resp Services) [address], [place], [address], 12/07/2022 14:31:18 05/10/20 23 05/09/2023 CT, chest , w/o contr ast No observ ation record ed. [email or web address] [address], [place], [address], 05/14/2023 14:26:53 Result Notes None recorded. Problems Name Problem SNOMED Code Status Onset Date Resolution Date Notes Provider Name and Address Organization Details Recorded Time Chronic obstructi ve pulmonary disease 02299717 Active 2019 Not Available [facility] 3 04:51:57 Hypoxia 493310715 Active 2019 Not Available [facility] 3 04:51:57 Solitary nodule of lung 980331225 Active 2021 Not Available [facility] 3 04:51:58 Celluliti s of lower limb 875035029 Active 2019 Not Available [facility] 3 04:51:58 Nicotine dependenc e 32433251 Active 2021 Not Available [facility] 3 04:51:58 Dyspnea on exertion 37815959 Active 2019 Not Available [facility] 3 04:51:58 Obstructi ve sleep apnea syndrome 64052731 Active 2021 Not Available [facility] 3 04:51:58 Ex-smoker 7987110 Completed 201911/02/2020 Not Available [facility] 3 04:51:58 Dependenc e on supplemen luz oxygen 44705699415 7 Active 2019 Not Available [facility] 3 04:51:58 Problem Notes None recorded. Procedures Surgical History None recorded. Imaging Results Imaging Date Name Status LastModified by Organization Details LastModified Time 10/19/2021 nocturnal pulse oximetry* completed [id number] [facility] [address] [facility] [address], [place], [address], 08/29/2022 05:03:40 08/31/2021 CPAP compliance* completed [id number] 0026 [facility] [address], [place], [address], 08/29/2022 05:03:40 12/28/2021 polysomnogram, titration study completed [id number] Information not available 08/29/2022 05:03:40 04/06/2022 US, echocardiogram, transthoracic, complete, w/ color flow completed [id number], [address], 08/29/2022 05:03:40 04/03/2022 LDCT, chest, for lung cancer screening completed [id number] [facility] [address] [place], [address], 08/29/2022 05:03:40 02/14/2022 oximetry monitoring overnight completed [id number] Information not available 08/29/2022 05:03:40 03/03/2022 oximetry monitoring overnight completed [id number] Information not available 08/29/2022 05:03:40 01/29/2020 polysomnogram, titration study completed [id number] [facility] [address] [place], [address], 08/29/2022 05:03:40 10/12/2022 CT, chest, w/o contrast completed [email or web address] Information not available 10/23/2022 16:36:01 11/16/2022 complete PFT w/ post bronchodilator spirometry* [facility] [address] [facility] [address] [place] [address], [id number], 12/07/2022 14:31:18 11/16/2022 complete PFT w/ post bronchodilator spirometry* completed [facility] ([facility]) [address], [place], [address], 12/07/2022 14:31:18 05/09/2023 CT, chest, w/o contrast completed [email or web address] [facility] [address], [place], [address], 05/14/2023 14:26:53 Procedure Notes None recorded. Medical Equipment None Reported. Allergies No known drug allergies Medications Name Sig Start Date Stop Date Status Note LastModified by Organization Details LastModified Time albuterol sulfate 2.5 mg/3 mL (0.083 %) solution for nebulizatio n Inhale 3 mL 3 times a day by nebulizat ion route as directed for 30 days. active Not Available Not Available No t Available prednisone 20 mg tablet TAKE 2 TABLETS BY MOUTH ONCE DAILY FOR 5 DAYS active Not Available Not Available No t Available phenytoin sodium extended 100 mg capsule TAKE 2 CAPSULES BY MOUTH TWICE DAILY active Not Available Not Available No t Available sulfamethox azole 800 mg-trimetho prim 160 mg tablet TAKE 1 TABLET BY MOUTH TWICE DAILY FOR 10 DAYS active Not Available Not Available No t Available citalopram 20 mg tablet TAKE 1 TABLET BY MOUTH ONCE DAILY active Not Available Not Available No t Available cephalexin 500 mg capsule TAKE 1 CAPSULE BY MOUTH 4 TIMES DAILY FOR 7 DAYS active Not Available Not Available No t Available pantoprazol e 40 mg tablet,sandra yed release TAKE 1 TABLET BY MOUTH ONCE DAILY IN THE MORNING active Not Available Not Available No t Available triamcinolo ne acetonide 0.1 % topical ointment APPLY TO LEGS TWICE DAILY NEEDED. 09/05 completed Not Available Not Available Not Available diclofenac sodium 75 mg tablet,sandra yed release TAKE 1 TABLET BY MOUTH TWICE DAILY 03/27 completed Not Available Not Available Not Available hydroxyzine HCl 25 mg tablet 06/09 completed Not Available Not Available Not Available furosemide 20 mg tablet TAKE 1 TABLET BY MOUTH ONCE DAILY active Not Available Not Available No t Available methylpredn isolone 4 mg tablets in a dose pack TAKE BY MOUTH DIRECTED ON INSIDE OF PACKAGE 09/05 completed Not Available Not Available Not Available albuterol sulfate HFA 90 mcg/actuati on aerosol inhaler INHALE 2 PUFFS BY MOUTH EVERY 4 TO 6 HOURS NEEDED active Not Available Not Available No t Available ketoconazol e 2 % topical cream 09/05 completed Not Available Not Available Not Available Combivent Respimat 20 mcg-100 mcg/actuati on solution for inhalation INHALE 1 PUFF BY MOUTH 4 TIMES DAILY active Not Available Not Available No t Available Anoro Ellipta 62.5 mcg-25 mcg/actuati on powder for inhalation INHALE 1 PUFF BY MOUTH ONCE DAILY DIRECTED active Not Available Not Available No t Available Spiriva Respimat 2.5 mcg/actuati on solution for inhalation active Not Available Not Available N ot Available Vitals Date Recorded Body mass index (BMI) Body height Oxygen saturation Oxygen saturation in Arterial blood by Pulse oximetry Heart rate Body temperature Body weight Systolic blood pressure Diastolic blood pressure Provider Name and Address Organization Details Last Updated DateTime 2 20.5 kg/m2 180.34 cm 93 % 93 % 74 /min 97.2 [degF] 75512.0 8 g 132 mm[Hg] 70 mm[Hg] Not Available [facility] 3 04:47:11 Date Recorded Body mass index (BMI) Body height Oxygen saturation Oxygen saturation in Arterial blood by Pulse oximetry Heart rate Body temperature Body weight Systolic blood pressure Diastolic blood pressure Provider Name and Address Organization Details Last Updated DateTime 2 33.2 kg/m2 180.34 cm 97 % 97 % 67 /min 97.3 [degF] 427550. 98 g 110 mm[Hg] 60 mm[Hg] Not Available On license of [facility] 3 04:47:11 Date Recorded Body mass index (BMI) Body height Oxygen saturation Oxygen saturation in Arterial blood by Pulse oximetry Heart rate Body weight Systolic blood pressure Diastolic blood pressure Provider Name and Address Organization Details Last Updated DateTime 2 33.5 kg/m2 180.34 cm 93 % 93 % 66 /min 011574. 17 g 140 mm[Hg] 70 mm[Hg] Not Available On license of [facility] 3 04:47:11 Date Recorded Body height Body mass index (BMI) Body weight Body temperature Heart rate Oxygen saturation Oxygen saturation in Arterial blood by Pulse oximetry Inhaled oxygen flow rate Systolic blood pressure Diastolic blood pressure Provider Name and Address Organization Details Last Updated DateTime 3 180.34 cm 33.5 kg/m2 174714. 17 g 97.2 [degF] 64 /min 90 % 90 % 3 L/min 118 mm[Hg] 64 mm[Hg] Tiffany Clark [facility] 3 14:59:54 Date Recorded Body height Body mass index (BMI) Body weight Heart rate Oxygen saturation Oxygen saturation in Arterial blood by Pulse oximetry Inhaled oxygen flow rate Systolic blood pressure Diastolic blood pressure Provider Name and Address Organization Details Last Updated DateTime 3 180.34 cm 33.2 kg/m2 757158. 98 g 78 /min 91 % 91 % 3 L/min 110 mm[Hg] 60 mm[Hg] Tiffany Clark [facility] 3 14:08:15 Social History Question Answer Notes LastModified by Organizat ion Details LastModified Time Tobacco Smoking Status Current Every Day Smoker Not Available [facility] 08/29/2022 04:21:38 What Is Your Level Of Alcohol Consumption? Occasional [id number] Information not available 08/29/2022 What Is Your Level Of Caffeine Consumption? Moderate [id number] Information not available 08/29/2022 In The 14 Days Before Symptom Onset, Have You Had Close Contact With A Laboratory-confi rmed COVID-19 While That Case Was Ill? No [id number] Information not available 08/29/2022 In The 14 Days Before Symptom Onset, Have You Had Close Contact With A Person Who Is Under Investigation For COVID-19 While That Person Was Ill? No [id number] Information not available 08/29/2022 Do You Or Have You Ever Used E-cigarettes Or Vape? Never Used Electronic Cigarettes [id number] Information not available 08/29/2022 What Was The Date Of Your Most Recent Tobacco Screening? 03/07/2021 [id number] Information not available 08/29/2022 What Is Your Current Pack Years? 30ormorepacky ears [id number].[id number] Information not available 08/29/2022 Do You Have Any Pets? No [id number].[id number] Information not available 08/29/2022 At What Age Did You Start Smoking Tobacco? 12 14-30 Then Restarted At 48 Y/o [id number] Information not available 08/29/2022 Do You Or Have You Ever Used Smokeless Tobacco? Never Used Smokeless Tobacco [id number] Information not available 08/29/2022 How Much Tobacco Do You Smoke? 0.25 PPD [id number].[id number] Information not available 08/29/2022 Do You Use Any Illicit Or Recreational Drugs? No [id number].[id number] 12530 Information not available 08/29/2022 Have You Recently Traveled Abroad? No [id number] Information not available 08/29/2022 Sex: Unknown Functional Status None recorded. Mental Status None recorded. Family History Nothing Reported. Medical History No medical history recorded. Immunizations Vaccine Type Date Status Note Provider Nam e and Address Organization Details Recorded Time COVID-19, mRNA, LNP-S, PF, 30 mcg/0.3 mL dose 09/13/2020 completed Not Available On license of [facility] 3 05:02:46 COVID-19, mRNA, LNP-S, PF, 30 mcg/0.3 mL dose 08/17/2020 completed Not Available On license of [facility] 3 05:02:46 Influenza, high-dose, quadrivalent, PF 05/01/2022 completed Not Available On license of [facility] 3 05:02:46 Past Encounters Encounter ID Performer Location Encounter Start Date Encounter Closed Date Diagnosis/Indication Diagnosis SNOMED-CT Code Diagnosis ICD10 Code Diagnosis Note [id number] [facility] [address] [place] [address] 11/02/2020 00:00:00 11/02/2020 14:03:51 [id number] [facility] [address] [place] [address] 03/07/2021 00:00:00 03/07/2021 12:04:58 [id number] [facility] [address] [place] [address] 09/05/2021 00:00:00 09/05/2021 14:51:20 [id number] [facility] [address] [place] [address] 03/27/2022 00:00:00 03/27/2022 14:48:04 [id number] [facility] [address] [place] [address] 05/01/2022 00:00:00 05/01/2022 17:00:49 [id number] ROMULO [facility] [address] [place] [address] 10/29/2022 14:50:14 10/29/2022 16:12:15 Chronic obstructive pulmonary disease 73049716 J44.9 Last PFT in 2019 with FEV1 53%TLC 149DLCO 44Order to repeat todayStabl e on Anoro, continue.I Nstructed on techniqueR rj HUTCHISONI PRN - discussed indication s for useDiscuss ed reportable signs and symptoms.Jaswinder mariee is current on COVID19 vaccinesNe bulizer for PRN useRTO in 6 months, PRN for concerns Solitary n odule of lung 965189874 R91.1 12mm to RLL, noncalcifi edRepeat CT due 09/2022, unchanged noduleRepe at in 6 months - due 03/2023 Dyspnea on exertion 6084 5006 R06.09 Improved with Anoro and oxygenInst ructed on 100% compliance with oxygenEcho cardiogram with bubble study completed - no shuntEF 60-65Smoki ng cessationW Eight loss Dependence on supplemental oxygen 9520156567 07 Z99.81 He has good use and clinical benefitRep eat 6MWT as above Obstructiv e sleep apnea syndrome 87134711 G47.33 Download on 16CM H2O with 100% use and AHI 0.4He has good use and clinical benefit Nicotine dependence 5629 4008 Z87.891 Smoking cessation counseling and techniques reviewed at length. L iterature reviewed.A void triggers, support groups.Dis traction techniques Greater than 3 but less than 10 minutes spent discussing cessation. Declines NRT.Discus sed Rx options if needed in the future. [id number] ROMULO Reis [facility] [address] [place] [address] 05/03/2023 13:59:49 05/03/2023 15:09:02 Chronic obstructive pulmonary disease 09801875 J44.9 Last PFT in 2019 with FEV1 53%TLC 149DLCO 44Repeated 10/2022 with ratio 46 and FEV1 54DLCO 41 adjustedSt able on Anoro, continue.I nstructed on techniqueR escpema HUTCHISONI PRN - discussed indication s for useDiscuss ed reportable signs and symptoms.H e is current on COVID19 vaccinesNe bulizer for PRN useHe is current on pneumonia, flu, RSV and COVID vaccines Solitary n odule of lung 521754864 R91.1 12mm to RLL, noncalcifi edRepeat CT due 09/2022, unchanged noduleRepe at due 03/2023, he has not completed thisStaff scheduled today Dyspnea on exertion 6084 5006 R06.09 Improved with Anoro and oxygenInst ructed on 100% compliance with oxygenEcho cardiogram with bubble study completed 03/2022- no shuntEF 60-65Smoki ng cessationW eight lossRecomm end PRCT as above Dependence on supplemental oxygen 0153562145 07 Z99.81 He has good use and clinical benefitRep eat 6MWT as above with 4 liters required with activityNe w order for POC, his currently only goes up to 3 litersCont inue 6 liters at night bleed in to PAP Obstructiv e sleep apnea syndrome 09201057 G47.33 Download today on 16CM H2O with 100% use and AHI 0.4He has good use and clinical benefit Nicotine dependence 5629 4008 Z87.891 Smoking cessation counseling and techniques reviewed at length. L iterature reviewed.A void triggers, support groups.Dis traction techniques Greater than 3 but less than 10 minutes spent discussing cessation. Declines NRT.Discus sed Rx options if needed in the future.CT as detailed above Health Concerns Section Related Observation LastModified by Organization Detai ls LastModified Time None Recorded Concern Status LastModified by Organization Details LastModified Time None Recorded Advance Directives Directive None Recorded Payers Encounter Date Sequence Insurance Name Policy Number Policy Harris Covered Member ID Harris Member ID Guarantor Name 10/29/2022 1 [employer] (MEDICARE REPLACEMENT PPO) [id number] Demetrio Realdamion [id number] Demetrio Cordova Alanis 05/03/2023 1 [employer] (MEDICARE REPLACEMENT PPO) [id number] Demetiro Realdamion [id number] Demetrio Cordova Alanis Notes Date Note Type Note Provider Name and Address Organization Details Recorded Time 10/29/2022 text/html Mr Alanis hansen ents today to follow up on COPD, oxygen dependence, TAMAR, dyspnea, nicotine dependenceHad poly[p removed during recent EGDGERD is resolvedContinues to use PAP and 6 litersHas restful sleepHe has significantly increased his oxygen use and is feeling less shortness of breathNo exacerbations in over a year.Rescue MDI use is 2-3x weeklyCompliant with Anoro Ellipta one puff dailyDenies cough, wheezing and respiratory symptoms that wake him at night.No hemoptysis, chest pain, wheezing, or unintentional weight loss.Endorses some shortness of breath with activityContinues to smoke about 3/4 PPD. ROMULO Reis [address], [place], [address], evocatal 10/29/2022 16:49:27 05/03/2023 text/html Mr Alanis hansen ents today to follow up on COPD, oxygen dependence, TAMAR, dyspnea, nicotine dependenceReports that his exertional dyspnea is slightly worse and he feels like his stamina is not quite as goodHad illness over summer that lasted about 2 weeks with no steroids or antibiotics, did not test for COVID.Continues to smoke about 3/4 PPDGERD is resolvedContinues to use PAP and 6 litersHas restful sleepHe has significantly increased his oxygen use and is feeling less shortness of breathRescue MDI use is 2-3x weeklyCompliant with Anoro Ellipta one puff dailyDenies cough, wheezing and respiratory symptoms that wake him at night.No hemoptysis, chest pain, wheezing, or unintentional weight loss.Had all testing except CT chest completed CLAUDIA Reis-CHANDLER [address], [place], [address], evocatal 05/03/2023 16:27:18
[2024-09-29 15:44] LABS: NT Pro B Type Natriuretic Pept 170 pg/mL (19.9-100)
[2024-09-29 15:56] LABS: Lactic Acid Reflex 0.8 mmol/L (0.7-2.0)
[2024-09-29] MEDS: AZITHROMYCIN 500 MG/NS 250 ML 500 MG/250 ML BAG 250 MG IVPB (15:58)
[2024-09-29 16:18] LABS: Add Urine Microscopic? YES; Appearance Urine Clear (Clear); Bacteria Urine None Seen /hpf; Bilirubin Urine Negative (Negative); Blood Urine Negative (Negative); Color Urine Yellow (Yellow); Glucose Urine UA Negative (Negative); Ketones Urine 1+ mg/dL (Negative); Leukocyte Esterase Ur Negative LEU/UL (Negative); Nitrate Urine Negative (Negative); Non Pathogenic Casts 0-2; Protein Urine 1+ mg/dL (Negative); RBC Urine 0-2 /hpf (0-2); Specific Grav Ur 1.014 (1.001-1.035); Squamous Epithelial Cell Urine None Seen /hpf (Few); WBC Urine 0-5 /hpf (0-3)
[2024-09-29 16:58] LABS: MRSA (PCR) NOT DETECTED (NOT DETECTE)
--- NOTE | 2024-09-29 18:58 | ADMGEN ---
This patient, Demetrio Thapa, was admitted to IMU Room 212-01. Patient/family oriented to hospital policies and general routines including ID bracelet, bed and alarms, visiting hours, pain management, procedures, bathroom and other care routines, personal items, smoking policy, room service/diet, and visiting hours. Information on how to activate the Rapid Response Team has been discussed. Patient/Family are encouraged to report perceived risks to care and to ask questions if they do not understand what they are told or what they should do.
[2024-09-29] MEDS: IPRATROPIUM 0.5 MG/ALBUTEROL SULFATE 2.5 MG AMPUL.NEB 3 ML INHALATION (20:40)
[2024-09-29] MEDS: methylPREDNISolone SOD SUCC 125 MG VIAL 60 MG IV PUSH (21:19)
[2024-09-29] MEDS: DIPHENOXYLATE/ATROPINE (*CRX) 2.5 MG TABLET 1 TABLET PO (21:19)
[2024-09-29] MEDS: guaiFENesin 12 HR 600 MG TABCR PO (21:19)
[2024-09-29 22:18] LABS: Base Excess ABG 0.5 mEq/l (+/-2.0); Fractional Inspired Oxygen 36 %; Oxygen Content ABG 19.2 %vol (16.0-22.0); Oxygen Saturation ABG 94.6 % (95.0-100.0); PCO2 ABG 39.8 mmHg (35.0-45.0); PO2 ABG 71.5 mmHg (80.0-100.0); PO2 FiO2 Ratio Arterial Blood 1.99 %; Total Hemoglobin 14.7 g/dL (12.0-18.0); pH ABG 7.416 (7.350-7.450)
[2024-09-29 22:19] LABS: Device BIPAP; Modified Allen's Test Pass; Site Drawn RIGHT RADIAL
[2024-09-29 22:20] LABS: Expiratory Pressure 6 cmH2O; Inspiratory Pressure 12 cmH2O
[2024-09-30] VITALS (24 sets, daily range): BP systolic 107–126; BP diastolic 66–85; PULSE 42–72; RESP 16–24; TEMP 36.6–36.9; O2SAT 92–99
[2024-09-30] MEDS: IPRATROPIUM 0.5 MG/ALBUTEROL SULFATE 2.5 MG AMPUL.NEB 3 ML INHALATION ×4 (02:36→19:55)
[2024-09-30 04:26] LABS: Basophils Percent Auto 0.3 % (0.2-1.2); Hematocrit 44.8 % (42.0-52.0); Hemoglobin 14.4 g/dL (14.0-18.0); Immature Granulocyte Absolute 0.02 K/mm3 (0.00-0.031); Immature Granulocyte Percent A 0.3 % (0-0.5); Lymphocytes Absolute Auto 1.38 K/mm3 (0.9-3.2); Lymphocytes Percent Auto 20.8 % (18.3-44.2); Mean Corpuscular HGB Conc 32.1 g/dl (32-36); Mean Corpuscular Hemoglobin 31.8 pg (26-34); Mean Corpuscular Volume 98.9 fl (80-100); Mean Platelet Volume 9.2 fl (7.4-10.4); Monocytes Absolute Auto 0.6 K/mm3 (0.1-0.6); Monocytes Percent Auto 8.6 % (2.6-8.5); Neutrophils Absolute Auto 4.7 K/mm3 (1.3-6.7); Platelet Count Result 107 k/mm3 (150-375); Red Blood Count 4.53 M/mm3 (4.6-6.20); Red Cell Distribution Width 14.1 % (11.5-14.5); White Blood Count 6.7 K/mm3 (4.5-10.0)
[2024-09-30 04:39] LABS: Alanine Aminotransferase 34 U/L (6-50); Albumin Level 3.6 g/dL (3.5-5.1); Alkaline Phosphatase 78 U/L (38-126); Anion Gap 8 mmol/L (4-12); Aspartate Amino Transferase 49 U/L (17-59); Bilirubin,Total 0.6 mg/dL (0.2-1.3); Blood Urea Nitrogen 19 mg/dL (9-20); Calcium 8.1 mg/dL (8.4-10.2); Carbon Dioxide 28 mmol/L (22-30); Chloride 98 mmol/L (98-107); Estimated CRCL calculation 130 ml/min; Estimated Glomerular Filt Rate > 60; Glucose 113 mg/dL (65-110); Potassium 4.4 mmol/L (3.4-5.0); Sodium 134 mmol/L (137-145)
[2024-09-30 04:59] LABS: Band Neutrophils Percent 0 % (0-6); Burr Cells 1+; Ovalocytes 1+; Platelet Estimate Decreased (Adequate); Schistocytes None Seen
[2024-09-30] MEDS: methylPREDNISolone SOD SUCC 125 MG VIAL 60 MG IV PUSH ×3 (05:16→17:04)
--- NOTE | 2024-09-30 07:47 | PM.IMPN ---
Progress Note: A&P Assessment and Plan (1) Influenza A: Code(s): J10.1 - Influenza due to other identified influenza virus with other respiratory manifestations Status: Acute (2) COPD (chronic obstructive pulmonary disease): Qualifiers: COPD type: COPD with acute exacerbation Qualified Code(s): J44.1 - Chronic obstructive pulmonary disease with (acute) exacerbation Code(s): J44.9 - Chronic obstructive pulmonary disease, unspecified Status: Acute (3) TAMAR (obstructive sleep apnea): Code(s): G47.33 - Obstructive sleep apnea (adult) (pediatric) Status: Chronic (4) Tobacco use: Code(s): Z72.0 - Tobacco use Status: Chronic (5) Hypoxia: Code(s): R09.02 - Hypoxemia Status: Acute (6) Community acquired pneumonia: Qualifiers: Laterality: unspecified laterality Qualified Code(s): J18.9 - Pneumonia, unspecified organism Code(s): J18.9 - Pneumonia, unspecified organism Status: Acute Plan Acute respiratory failure with hypoxemia Likely resulting from pneumonia and fluid overload ABG showed pH 7.455, pCO2 44.1, pO2 48.3, HCO3 30.3, O2 sat 85.8 % on 4L NC. place on BiPAP for work of breathing, will recheck ABG in 2 hours baseline supplemental O2 need: 8L w/CPAP at night time. Community acquired pneumonia: Qualifiers: Laterality: unspecified laterality Qualified Code(s): J18.9 - Pneumonia, unspecified organism Code(s): J18.9 - Pneumonia, unspecified organism Status: Acute Assessment and Plan: Chest x-ray suggests bilateral lobe pneumonia and med pulmonary edema Possible resulting from bacteriuria infection superimposed influenza a effect Continue azithromycin ceftriaxone and Tamiflu Influenza A: Code(s): J10.1 - Influenza due to other identified influenza virus with other respiratory manifestations Status: Acute Assessment and Plan: - tested positive for influenza A on 09/29, symptom onset was 5 days ago - out of window for Tamiflu 75 mg - supportive care, see above - monitor WBC/CBC Fluid overload, Possible acute on chronic diastolic heart failure Crackles bilateral base Start Lasix 40 mg IV push once. Continue oral Lasix Echocardiogram April 06, 2022 showed normal EF Repeat echocardiogram COPD (chronic obstructive pulmonary disease): Qualifiers: COPD type: COPD with acute exacerbation Qualified Code(s): J44.1 - Chronic obstructive pulmonary disease with (acute) exacerbation Code(s): J44.9 - Chronic obstructive pulmonary disease, unspecified Status: Acute Assessment and Plan: Young bui Received Solu-Medrol 125-in the ED, continue 60 mg IV q.6 Continue ceftriaxone and azithromycin on 09/29 Sinus bradycardia EKG shows sinus rhythm, heart rate 60 upon arrival, Repeat EKG Place patient telemetry monitoring TAMAR (obstructive sleep apnea): Code(s): G47.33 - Obstructive sleep apnea (adult) (pediatric) Status: Chronic Assessment and Plan: - continue home CPAP Tobacco use: Code(s): Z72.0 - Tobacco use Status: Chronic Assessment and Plan: - 1 PPD x20+ years - denied need for nicotine patch Subjective Date/time seen: 09/30/24 07:47 Interval history: Patient is afebrile, blood pressure stable, on BiPAP overnight sinus Lakhwinder. Labs reviewed Patient feels dyspnea persists, patient is a cough with scant phlegm. Patient denies chest pain abdomen pain nausea vomiting. Patient needs BiPAP overnight. Exam Narrative: GENERAL: Pleasant, in no acute distress. Well-nourished. - EYES: EOMI. Anicteric. - HENT: Moist mucous membranes. - LUNGS: Coarse breath sound bilaterally, crackles bilateral base - CARDIOVASCULAR: Regular rate and rhythm. No murmur. No JVD. - ABDOMEN: Soft, non-tender and non-distended. No palpable masses. - EXTREMITIES: No edema. Peripheral pulses 2+. Non-tender. - NEUROLOGIC: No focal neurological deficits. CN II-XII grossly intact. - PSYCHIATRIC: Awake, Alert and oriented x 3. Appropriate mood and affect. - SKIN: No rashes or lesions. Warm. - LYMPH: No cervical lymphadenopathy. Objective Data Vital Signs Vital Signs: Vital Signs - 24 hr 09/29/24 13:39 09/29/24 13:58 09/29/24 13:58 Temperature 98.7 F Pulse Rate 95 68 Respiratory Rate 32 H Blood Pressure 110/70 Pulse Oximetry 88 L 88 L Oxygen Delivery Nasal Cannula Nasal Cannula Oxygen Flow Rate 6 6 09/29/24 14:01 09/29/24 14:02 09/29/24 14:14 Temperature Pulse Rate 74 66 75 Respiratory Rate 21 H 20 20 Blood Pressure 107/67 Pulse Oximetry 89 L Oxygen Delivery Oxygen Flow Rate 09/29/24 14:16 09/29/24 14:32 09/29/24 14:46 Temperature Pulse Rate 76 75 76 Respiratory Rate 14 18 20 Blood Pressure 110/75 112/78 117/72 Pulse Oximetry 96 91 93 Oxygen Delivery Oxygen Flow Rate 09/29/24 15:15 09/29/24 15:15 09/29/24 15:45 Temperature Pulse Rate 65 87 Respiratory Rate 14 33 H Blood Pressure 157/81 H Pulse Oximetry 95 90 98 Oxygen Delivery BiPAP Oxygen Flow Rate 09/29/24 16:08 09/29/24 16:30 09/29/24 18:00 Temperature Pulse Rate 68 69 62 Respiratory Rate 18 18 Blood Pressure 128/66 Pulse Oximetry 96 97 Oxygen Delivery BiPAP Oxygen Flow Rate 09/29/24 19:43 09/29/24 20:00 09/29/24 20:00 Temperature 98.5 F Pulse Rate 57 L 52 L 52 L Respiratory Rate 18 22 H Blood Pressure 119/71 Pulse Oximetry 96 96 Oxygen Delivery BiPAP Oxygen Flow Rate 09/29/24 20:41 09/29/24 20:41 09/29/24 22:00 Temperature Pulse Rate 52 L 52 L 58 L Respiratory Rate 9 L 9 L Blood Pressure Pulse Oximetry 96 Oxygen Delivery BiPAP Oxygen Flow Rate 09/29/24 23:21 09/30/24 00:00 09/30/24 00:00 Temperature 98.3 F Pulse Rate 52 L 51 L 51 L Respiratory Rate 20 20 Blood Pressure 109/61 Pulse Oximetry 95 95 Oxygen Delivery BiPAP Oxygen Flow Rate 09/30/24 02:00 09/30/24 02:36 09/30/24 02:36 Temperature Pulse Rate 42 L 49 L 49 L Respiratory Rate 17 17 Blood Pressure Pulse Oximetry 92 Oxygen Delivery BiPAP Oxygen Flow Rate 09/30/24 03:44 09/30/24 03:44 09/30/24 03:46 Temperature 98.4 F Pulse Rate 42 L 42 L 43 L Respiratory Rate 17 20 Blood Pressure 107/70 Pulse Oximetry 92 99 Oxygen Delivery BiPAP Oxygen Flow Rate 09/30/24 05:22 Temperature Pulse Rate 46 L Respiratory Rate Blood Pressure Pulse Oximetry Oxygen Delivery Oxygen Flow Rate Intake/Output Intake/Output: Intake & Output 09/27/24 09/28/24 09/29/24 09/30/24 23:59 23:59 23:59 23:59 Intake Total 290 200 Balance 290 200 Meds/Results Medications: Active Medications Generic Name Dose Route Start Last Admin Trade Name Freq PRN Reason Stop Dose Admin Acetaminophen 650 mg 09/29/24 15:15 Acetaminophen 325 Mg Tablet PO Q6H PRN Mild Pain (1-3) or Fever Albuterol/Ipratropium 3 ml 09/29/24 20:00 09/30/24 02:36 Ipratropium 0.5 Mg/Albuterol Sulfate 2.5 Mg Ampul.Neb 3 Ml INHALATION 3 ml Q6HRT PAULY Administration Benzocaine 1 lozenge 09/29/24 15:15 Benzocaine/Menthol (*Bkc) 18 Ea Lozenge PO PRN PRN Sore Throat Benzonatate 100 mg 09/29/24 15:15 Benzonatate 100 Mg Capsule PO TID PRN Cough Citalopram Hydrobromide 20 mg 09/30/24 09:00 Citalopram Hydrobromide 20 Mg Tablet PO DAILY [facility] Diphenoxylate HCl/Atropine 1 tablet 09/29/24 20:35 09/29/24 21:19 Diphenoxylate/Atropine (*Crx) 2.5 Mg Tablet PO 1 tablet PRN PRN Administration Diarrhea Enoxaparin Sodium 40 mg 09/30/24 09:00 Enoxaparin 40 Mg/0.4 Ml Syringe SUB-Q DAILY [facility] Folic Acid 0.8 mg 09/30/24 09:00 Folic Acid 0.4 Mg Tablet PO QAM [facility] Furosemide 20 mg 09/30/24 09:00 Furosemide 20 Mg Tablet PO QAM [facility] Guaifenesin 600 mg 09/29/24 21:00 09/29/24 21:19 Guaifenesin 12 Hr 600 Mg Tabcr PO 600 mg Q12HR PAULY Administration Ceftriaxone Sodium 1 gm in 50 mls @ 100 mls/hr 09/30/24 12:00 Rocephin 1 Gm/Ns 50 Ml IVPB Q24H PAULY Azithromycin 500 mg in 250 mls @ 250 mls/hr 09/30/24 12:00 Zithromax IVPB Q24H [facility] Methylprednisolone Sodium Succinate 60 mg 09/29/24 18:00 09/30/24 05:16 Methylprednisolone Sod Succ 125 Mg Vial IV PUSH 60 mg Q6HR PAULY Administration Multivitamins Therapeutic 1 tablet 09/30/24 09:00 Multivitamins Therapeutic Tab (*Bkc) PO DAILY [facility] Phenytoin 200 mg 09/30/24 09:00 Phenytoin Susp 100 Mg/4 Ml Udc PO BID [facility] Umeclidinium/Vilanterol 1 puff 09/30/24 08:00 Umeclidinium/Vilanterol 62.5-25 Mcg Ellipta INHALATION DAILYRT [facility] Radiology Results: ITS Impressions Chest X-Ray 09/29/24 14:17 IMPRESSION: 1. Mild increased interstitial pattern in the bilateral lower lung zones which could represent mild pulmonary edema or pneumonia. Labs Labs: Laboratory Results - last 24 hr 09/29/24 09/29/24 09/29/24 13:49 13:55 15:38 WBC 8.1 RBC 4.52 L Hgb 14.5 Hct 43.6 MCV 96.5 MCH 32.1 MCHC 33.3 RDW 14.3 Plt Count 118 L MPV 9.1 Immature Gran % (Auto) 0.2 Neut % (Auto) 70.8 Lymph % (Auto) 17.9 L [place] % (Auto) 10.7 H Eos % (Auto) 0.0 Baso % (Auto) 0.4 Lymph # (Auto) 1.44 [place] # (Auto) 0.9 H Eos # (Auto) 0.0 Baso # (Auto) 0.0 Abs Immat Gran (auto) 0.02 Absolute Neuts (auto) 5.7 Absolute Nucleated RBC 0.000 Band Neutrophils % Nucleated RBC % 0.0 Platelet Estimate % Immature Plt Fraction 2.3 Ovalocytes Silver Plume Cells Schistocytes PT 14.3 INR 1.1 APTT 29.3 Puncture Site Right radial ABG pH 7.455 H ABG pCO2 44.1 ABG pO2 48.3 L* ABG PO2/FiO2 Ratio 1.34 ABG HCO3 30.3 H ABG O2 Saturation 85.8 L* ABG O2 Content 17.8 ABG Base Excess 5.6 A-a Gradient 157.2 Oxyhemoglobin 83.9 L* Carboxyhemoglobin 2.0 Methemoglobin 0.3 Reduced Hemoglobin 13.8 H Total Hemoglobin 15.1 O2 Delivery Device Nasal cannula O2 Liters/Min 4.0 FiO2 36 Expiratory Pressure Inspiratory Pressure Sodium 134 L Potassium 4.1 Chloride 95 L Carbon Dioxide 32 H Anion Gap 7 BUN 14 Creatinine 0.55 L Estim Creat Clear Calc 127 Estimated GFR > 60 Glucose 91 Lactic Acid 0.8 Calcium 8.2 L Total Bilirubin 0.8 AST 44 ALT 29 Alkaline Phosphatase 87 NT-Pro-B Natriuret Pep 170 H Total Protein 8.0 Albumin 3.7 Urine Color Urine Appearance Urine pH Ur Specific [place] Urine Protein Urine Glucose (UA) Urine Ketones Ur Blood (Man) Urine Nitrate Urine Bilirubin Urine Urobilinogen Leukocyte Esterase Rfl Urine RBC Urine WBC Ur Squamous Epith Cells Urine Bacteria Urine Casts Nasal MRSA (PCR) Not detected Influenza A (RT-PCR) Positive A Influenza B (RT-PCR) Negative RSV (RT-PCR) Negative SARS-CoV-2 RNA (RT-PCR) Negative 09/29/24 09/29/24 09/30/24 16:00 20:04 04:08 WBC 6.7 RBC 4.53 L Hgb 14.4 Hct 44.8 MCV 98.9 MCH 31.8 MCHC 32.1 RDW 14.1 Plt Count 107 L MPV 9.2 Immature Gran % (Auto) 0.3 Neut % (Auto) 70.0 Lymph % (Auto) 20.8 [place] % (Auto) 8.6 H Eos % (Auto) 0.0 Baso % (Auto) 0.3 Lymph # (Auto) 1.38 [place] # (Auto) 0.6 Eos # (Auto) 0.0 Baso # (Auto) 0.0 Abs Immat Gran (auto) 0.02 Absolute Neuts (auto) 4.7 Absolute Nucleated RBC 0.000 Band Neutrophils % 0 Nucleated RBC % 0.0 Platelet Estimate Decreased % Immature Plt Fraction Ovalocytes 1+ Silver Plume Cells 1+ Schistocytes None seen PT INR APTT Puncture Site Right radial ABG pH 7.416 ABG pCO2 39.8 ABG pO2 71.5 L ABG PO2/FiO2 Ratio 1.99 ABG HCO3 25.0 ABG O2 Saturation 94.6 L ABG O2 Content 19.2 ABG Base Excess 0.5 A-a Gradient 139.0 Oxyhemoglobin 93.0 Carboxyhemoglobin Methemoglobin Reduced Hemoglobin Total Hemoglobin 14.7 O2 Delivery Device Bipap O2 Liters/Min Not Reportable FiO2 36 Expiratory Pressure 6 Inspiratory Pressure 12 Sodium 134 L Potassium 4.4 Chloride 98 Carbon Dioxide 28 Anion Gap 8 BUN 19 Creatinine 0.53 L Estim Creat Clear Calc 130 Estimated GFR > 60 Glucose 113 H Lactic Acid Calcium 8.1 L Total Bilirubin 0.6 AST 49 ALT 34 Alkaline Phosphatase 78 NT-Pro-B Natriuret Pep Total Protein 7.0 Albumin 3.6 Urine Color Yellow Urine Appearance Clear Urine pH 6.0 Ur Specific [place] 1.014 Urine Protein 1+ H Urine Glucose (UA) Negative Urine Ketones 1+ H Ur Blood (Man) Negative Urine Nitrate Negative Urine Bilirubin Negative Urine Urobilinogen 1.0 Leukocyte Esterase Rfl Negative Urine RBC 0-2 Urine WBC 0-5 Ur Squamous Epith Cells None seen Urine Bacteria None seen Urine Casts 0-2 Nasal MRSA (PCR) Influenza A (RT-PCR) Influenza B (RT-PCR) RSV (RT-PCR) SARS-CoV-2 RNA (RT-PCR)
--- NOTE | 2024-09-30 07:54 | ECHO_ITS ---
Patient Info Name: Demetrio Thapa Age: 69 years : 1955 Gender: Male Ht: 71 in Wt: 224 lbs BSA: 2.28 m2 HR: 60 bpm BP: 107 / 70 mmHg Technical Quality: Poor Exam Date: 09/30/2024 10:17 AM Exam Location: Echo Lab Patient Status: Inpatient Admit Date: 09/29/2024 Staff Ordering Physician: Stanislaw Quinn MD Front Office Specialist: Annalee Branch RDCS Attending Provider: Israel Alfredo MD Exam Type: CA echo dop color flow w con Study Info Indications - CHF Complete two-dimensional, color flow and Doppler transthoracic echocardiogram is performed with contrast to opacify the left ventricle and to improve the deliniation of the left ventricle endocardial borders. Contrast/Agitated Saline Contrast/Ag. Saline: Definity Amount: 2.00 ml Existing IV Access: Yes IV Access Condition: patent with no signs of infiltration Reason for Poor Study: poor echocardiographic windows Summary 1. Left ventricular chamber dimension is normal. 2. Left ventricular systolic function is normal, estimated at 60-65%. 3. The left ventricular diastolic function is normal. 4. E/e' 7 is not elevated. Left Ventricle E/e' 7 is not elevated. Left ventricular chamber dimension is normal. Left ventricular systolic function is normal, estimated at 60-65%. The left ventricular diastolic function is normal. Right Ventricle Right ventricular systolic function is normal and with normal TAPSE 2.1 cm. Right ventricular chamber dimension is mildly enlarged. Left Atria Left atrial chamber dimension is normal. Right Atria Right atrial chamber dimension is normal. Aortic Valve The aortic valve is trileaflet. There is no aortic valve stenosis. There is no aortic valve regurgitation. Pulmonic Valve There is no pulmonic regurgitation. Mitral Valve There is no mitral valve stenosis. There is no mitral valve regurgitation. Tricuspid Valve There is no tricuspid valve regurgitation. Pericardium/Pleural There is no pericardial effusion. Inferior Vena Cava Normal inferior vena cava with >50% collapse upon inspiration consistent with normal right atrial pressure, 5 mmHg. Aorta The aortic root size at the sinus of Valsalva is normal. Left Ventricular Outflow Tract Name Value Normal LVOT 2D LVOT Diameter 2.03 cm LVOT Doppler LVOT Peak Gradient 3 mmHg LVOT Mean Gradient 2 mmHg LVOT VTI 22.45 cm LVOT VTI/AV VTI Ratio 1.08 LVOT Stroke Volume 72.57 ml LVOT CO 12.82 l/min LVOT CI 5.61 L/min/m2 Mitral Valve Name Value Normal MV Doppler MV Decel Stanton 191.46 cm/s2 MV PHT 0 s MV Area (PHT) 2.39 cm2 4.00-5.00 MV Diastolic Function MV E Peak Velocity 60.72 cm/s MV A Peak Velocity 48.56 cm/s MV E/A 1.25 MV Decel Time 0 s MV Annular TDI MV E/e' (Septal) 7.64 <=8.00 MV E/e' (Lateral) 7.11 <=8.00 MV E/e' (Average) 7.38 Tricuspid Valve Name Value Normal Estimated PAP/RSVP RA Pressure 5 mmHg <=5 Aorta Name Value Normal Ascending Aorta Ao Root Diameter (MM) 3.25 cm Ao Root Diam Index (MM) 1.42 cm/m2 Aortic Valve Name Value Normal AV Doppler AV Peak Velocity 109.48 cm/s AV Peak Gradient 5 mmHg AV Mean Gradient 2 mmHg AV VTI 20.87 cm AV Area (Cont Eq VTI) 3.48 cm2 >=3.00 AV Area (Cont Eq [place]) 2.72 cm2 AV Regurgitation 2D LVOT Area 3.23 cm2 Ventricles Name Value Normal LV Dimensions 2D/MM IVS Diastolic Thickness (2D) 0.93 cm 0.60-1.00 LVID Diastole (2D) 4.56 cm 4.20-5.80 LVIW Diastolic Thickness (2D) 0.74 cm 0.60-1.00 LVID Systole (2D) 3.63 cm 2.50-4.00 LVOT Diameter 2.03 cm LV Mass (2D Cubed) 122.78 g 88.00-224.00 LV Mass Index (2D Cubed) 0.01 g/cm2 0.00-0.01 Relative Wall Thickness (2D) 0.32 LV Fractional Shortening/Ejection Fraction 2D/MM LV Fractional Shortening (2D) 20 % 25-43 LV EF (2D Teicholz) 42 % 52-72 RV Dimensions 2D/MM RVID Diastole (2D) 4.25 cm 2.50-3.50 Atria Name Value Normal LA Dimensions LA Dimension (MM) 0.00 cm 3.00-4.10 Report Signatures
--- NOTE | 2024-09-30 07:56 | ECG_ITS ---
Test Date: 2024-09-30 09:27:13 Measurements Intervals Milo Rate: 55 P: -12 IN: 131 QRS: -18 QRSD: 89 T: 20 QT: 459 QTc: 439 Interpretive Statements SINUS BRADYCARDIA BASELINE ARTIFACT- V4-V6 BORDERLINE ECG Electronically Signed On 09-30-2024 09:28:[address] D[address]
[2024-09-30] MEDS: UMECLIDINIUM/VILANTEROL 62.5-25 MCG ELLIPTA 1 PUFF INHALATION (08:44)
[2024-09-30] MEDS: ENOXAPARIN 40 MG/0.4 ML SYRINGE SUB-Q (09:01)
[2024-09-30] MEDS: MULTIVITAMINS THERAPEUTIC TAB (*BKC) 1 TABLET PO (09:02)
[2024-09-30] MEDS: CITALOPRAM HYDROBROMIDE 20 MG TABLET PO (09:02)
[2024-09-30] MEDS: guaiFENesin 12 HR 600 MG TABCR PO ×2 (09:02→20:27)
[2024-09-30] MEDS: FOLIC ACID 0.4 MG TABLET 0.8 MG PO (09:02)
[2024-09-30] MEDS: FUROSEMIDE 20 MG TABLET PO (09:09)
[2024-09-30] MEDS: FUROSEMIDE INJ 40 MG/4 ML VIAL IV PUSH (09:09)
[2024-09-30] MEDS: PHENYTOIN SODIUM 100 MG EXTENDED RELEASE CAP 200 MG PO ×2 (09:55→20:27)
[2024-09-30] MEDS: PERFLUTREN LIPID MICROSPHERES 1.5 ML VIAL DILUTED TO 10 ML TOTAL VOLUME IV PUSH (10:40)
--- NOTE | 2024-09-30 11:15 | IVDEFINITY ---
Prior to administration of IV Definity the patient was educated on the risks and benefits of the imaging enhancing agent including potential adverse side effects. The patient verbalized understanding. Allergies were verified. No exclusion criteria were identified and at least one of the following inclusion criteria were met: 1) physician request, 2) patient technically difficult to image (per the [place] [employer] guidelines of two or more segments not discernable within the apical view), or 3) questionable left ventricular function. ?
[2024-09-30] MEDS: AZITHROMYCIN 500 MG/NS 250 ML 500 MG/250 ML BAG 250 MG IVPB (12:37)
[2024-09-30] MEDS: DIPHENOXYLATE/ATROPINE (*CRX) 2.5 MG TABLET 1 TABLET PO (20:34)
[2024-10-01] VITALS (25 sets, daily range): BP systolic 117–131; BP diastolic 72–85; PULSE 41–67; RESP 16–22; TEMP 36.6–36.9; O2SAT 91–97
[2024-10-01] MEDS: methylPREDNISolone SOD SUCC 125 MG VIAL 60 MG IV PUSH ×5 (00:08→23:41)
[2024-10-01] MEDS: IPRATROPIUM 0.5 MG/ALBUTEROL SULFATE 2.5 MG AMPUL.NEB 3 ML INHALATION ×4 (02:05→21:14)
--- NOTE | 2024-10-01 07:54 | P.PNIM_ITS ---
Progress Note: A&P Assessment and Plan (1) Influenza A: Code(s): J10.1 - Influenza due to other identified influenza virus with other respiratory manifestations Status: Acute (2) COPD (chronic obstructive pulmonary disease): Qualifiers: COPD type: COPD with acute exacerbation Qualified Code(s): J44.1 - Chronic obstructive pulmonary disease with (acute) exacerbation Code(s): J44.9 - Chronic obstructive pulmonary disease, unspecified Status: Acute (3) TAMAR (obstructive sleep apnea): Code(s): G47.33 - Obstructive sleep apnea (adult) (pediatric) Status: Chronic (4) Tobacco use: Code(s): Z72.0 - Tobacco use Status: Chronic (5) Hypoxia: Code(s): R09.02 - Hypoxemia Status: Acute (6) Community acquired pneumonia: Qualifiers: Laterality: unspecified laterality Qualified Code(s): J18.9 - Pneumonia, unspecified organism Code(s): J18.9 - Pneumonia, unspecified organism Status: Acute Plan Acute respiratory failure with hypoxemia Likely resulting from pneumonia and fluid overload ABG showed pH 7.455, pCO2 44.1, pO2 48.3, HCO3 30.3, O2 sat 85.8 % on 4L NC. place on BiPAP for work of breathing, will recheck ABG in 2 hours baseline supplemental O2 need: 8L w/CPAP at night time. Community acquired pneumonia: Qualifiers: Laterality: unspecified laterality Qualified Code(s): J18.9 - Pneumonia, unspecified organism Code(s): J18.9 - Pneumonia, unspecified organism Status: Acute Assessment and Plan: Chest x-ray suggests bilateral lobe pneumonia and med pulmonary edema Possible resulting from bacteriuria infection superimposed influenza a effect Continue azithromycin ceftriaxone and Tamiflu Influenza A: Code(s): J10.1 - Influenza due to other identified influenza virus with other respiratory manifestations Status: Acute Assessment and Plan: - tested positive for influenza A on 09/29, symptom onset was 5 days ago - out of window for Tamiflu 75 mg - supportive care, see above - monitor WBC/CBC Fluid overload, Possible acute on chronic diastolic heart failure Crackles bilateral base 4/2 Lasix 40 mg IV push once. Continue oral Lasix Echocardiogram April 06, 2022 showed normal EF Repeat echocardiogram 1. Left ventricular chamber dimension is normal. 2. Left ventricular systolic function is normal, estimated at 60-65%. 3. The left ventricular diastolic function is normal. 4. E/e' 7 is not elevated. provide Lasix 40 mg IV push once again 10/01 COPD (chronic obstructive pulmonary disease): Qualifiers: COPD type: COPD with acute exacerbation Qualified Code(s): J44.1 - Chronic obstructive pulmonary disease with (acute) exacerbation Code(s): J44.9 - Chronic obstructive pulmonary disease, unspecified Status: Acute Assessment and Plan: Young bui Received Solu-Medrol 125-in the ED, continue 60 mg IV q.6 Continue ceftriaxone and azithromycin on 09/29 Sinus bradycardia EKG shows sinus rhythm, heart rate 60 upon arrival, Repeat EKG : Sinus bradycardia 55, Place patient telemetry monitoring Patient is asymptomatic TAMAR (obstructive sleep apnea): Code(s): G47.33 - Obstructive sleep apnea (adult) (pediatric) Status: Chronic Assessment and Plan: continue home CPAP Tobacco use: Code(s): Z72.0 - Tobacco use Status: Chronic Assessment and Plan: - 1 PPD x20+ years - denied need for nicotine patch May discharge patient in 1-2 days if if symptom continue to improve Subjective Date/time seen: 10/01/24 07:54 Interval history: Patient is afebrile, blood pressure stable, on BiPAP overnight sinus Lakhwinder. Labs reviewed Patient feels dyspnea persists, but improved significantly after receiving Lasix yesterday. Patient denies chest pain abdomen pain nausea vomiting. Patient needs BiPAP overnight. Exam Narrative: GENERAL: Pleasant, in no acute distress. Well-nourished. - EYES: EOMI. Anicteric. - HENT: Moist mucous membranes. - LUNGS: Coarse breath sound bilaterall y, crackles bilateral base, prominent right lung base - CARDIOVASCULAR: Regular rate and rhyth m. No murmur. No JVD. - ABDOMEN: Soft, non-tender and non-dist ended. No palpable masses. - EXTREMITIES: No edema. Peripheral puls es 2+. Non-tender. - NEUROLOGIC: No focal neurological defi cits. CN II-XII grossly intact. - PSYCHIATRIC: Awake, Alert and oriented x 3. Appropriate mood and affect. - SKIN: No rashes or lesions. Warm. - LYMPH: No cervical lymphadenopathy. Objective Data Vital Signs Vital Signs: Vital Signs - 24 hr 09/30/24 08:00 09/30/24 08:00 09/30/24 08:45 Temperature 98 F Pulse Rate 53 L 54 L Respiratory Rate 20 Blood Pressure 125/77 Pulse Oximetry 97 95 Oxygen Delivery High Flow Nasal Cannula Oxygen Flow Rate 6 09/30/24 08:45 09/30/24 09:00 09/30/24 10:00 Temperature Pulse Rate 63 60 58 L Respiratory Rate 16 16 Blood Pressure Pulse Oximetry Oxygen Delivery Oxygen Flow Rate 09/30/24 12:00 09/30/24 12:00 09/30/24 13:35 Temperature 98.4 F Pulse Rate 72 57 L 58 L Respiratory Rate 22 H 16 Blood Pressure 118/85 Pulse Oximetry 93 Oxygen Delivery Oxygen Flow Rate 09/30/24 14:00 09/30/24 14:12 09/30/24 14:14 Temperature Pulse Rate 55 L 58 L Respiratory Rate 16 Blood Pressure Pulse Oximetry 94 Oxygen Delivery High Flow Nasal Cannula Oxygen Flow Rate 6 09/30/24 16:00 09/30/24 16:00 09/30/24 17:46 Temperature 98.2 F Pulse Rate 53 L 51 L 48 L Respiratory Rate 18 Blood Pressure 118/72 Pulse Oximetry 93 Oxygen Delivery Oxygen Flow Rate 09/30/24 19:39 09/30/24 19:57 09/30/24 19:57 Temperature 98.4 F Pulse Rate 50 L 55 L Respiratory Rate 24 H 18 Blood Pressure 109/75 Pulse Oximetry 93 93 Oxygen Delivery High Flow Nasal Cannula Oxygen Flow Rate 7 09/30/24 20:00 09/30/24 20:00 09/30/24 20:06 Temperature Pulse Rate 52 L 56 L Respiratory Rate 18 Blood Pressure Pulse Oximetry 93 Oxygen Delivery High Flow Nasal Cannula Oxygen Flow Rate 7 09/30/24 22:00 09/30/24 23:16 09/30/24 23:44 Temperature 97.8 F Pulse Rate 55 L 49 L 47 L Respiratory Rate 22 H 24 H Blood Pressure 126/66 Pulse Oximetry 94 94 Oxygen Delivery BiPAP Oxygen Flow Rate 10/01/24 00:00 10/01/24 00:00 10/01/24 02:00 Temperature Pulse Rate 45 L 41 L Respiratory Rate Blood Pressure Pulse Oximetry 94 Oxygen Delivery CPAP Oxygen Flow Rate 10/01/24 02:05 10/01/24 02:05 10/01/24 02:19 Temperature Pulse Rate 46 L 46 L 47 L Respiratory Rate 20 20 20 Blood Pressure Pulse Oximetry 92 Oxygen Delivery BiPAP Oxygen Flow Rate 10/01/24 04:00 10/01/24 04:00 10/01/24 04:00 Temperature 97.8 F Pulse Rate 47 L 44 L Respiratory Rate 22 H Blood Pressure 117/85 Pulse Oximetry 97 93 Oxygen Delivery CPAP Oxygen Flow Rate 10/01/24 06:00 Temperature Pulse Rate 44 L Respiratory Rate Blood Pressure Pulse Oximetry Oxygen Delivery Oxygen Flow Rate Intake/Output Intake/Output: Intake & Output 09/28/24 09/29/24 09/30/24 10/01/24 23:59 23:59 23:59 23:59 Intake Total 290 1880 600 Output Total 2350 1060 Balance 131 -712 -194 Meds/Results Medications: Active Medications Generic Name Dose Route Start Last Admin Trade Name Freq PRN Reason Stop Dose Admin Acetaminophen 650 mg 09/29/24 15:15 Acetaminophen 325 Mg Tablet PO Q6H PRN Mild Pain (1-3) or Fever Albuterol/Ipratropium 3 ml 09/29/24 20:00 10/01/24 02:05 Ipratropium 0.5 Mg/Albuterol Sulfate 2.5 Mg Ampul.Neb 3 Ml INHALATION 3 ml Q6HRT PAULY Administration Benzocaine 1 lozenge 09/29/24 15:15 Benzocaine/Menthol (*Bkc) 18 Ea Lozenge PO PRN PRN Sore Throat Benzonatate 100 mg 09/29/24 15:15 Benzonatate 100 Mg Capsule PO TID PRN Cough Citalopram Hydrobromide 20 mg 09/30/24 09:00 09/30/24 09:02 Citalopram Hydrobromide 20 Mg Tablet PO 20 mg DAILY PAULY Administration Diphenoxylate HCl/Atropine 1 tablet 09/29/24 20:35 09/30/24 20:34 Diphenoxylate/Atropine (*Crx) 2.5 Mg Tablet PO 1 tablet PRN PRN Administration Diarrhea Enoxaparin Sodium 40 mg 09/30/24 09:00 09/30/24 09:01 Enoxaparin 40 Mg/0.4 Ml Syringe SUB-Q 40 mg DAILY PAULY Administration Folic Acid 0.8 mg 09/30/24 09:00 09/30/24 09:02 Folic Acid 0.4 Mg Tablet PO 0.8 mg QAM PAULY Administration Furosemide 20 mg 09/30/24 09:00 09/30/24 09:09 Furosemide 20 Mg Tablet PO 20 mg QAM PAULY Administration Guaifenesin 600 mg 09/29/24 21:00 09/30/24 20:27 Guaifenesin 12 Hr 600 Mg Tabcr PO 600 mg Q12HR PAULY Administration Ceftriaxone Sodium 1 gm in 50 mls @ 100 mls/hr 09/30/24 12:00 09/30/24 12:31 Rocephin 1 Gm/Ns 50 Ml IVPB 100 mls/hr Q24H PAULY Administration Azithromycin 500 mg in 250 mls @ 250 mls/hr 09/30/24 12:00 09/30/24 12:37 Zithromax IVPB 250 mls/hr Q24H PAULY Administration Methylprednisolone Sodium Succinate 60 mg 09/29/24 18:00 10/01/24 06:16 Methylprednisolone Sod Succ 125 Mg Vial IV PUSH 60 mg Q6HR PAULY Administration Multivitamins Therapeutic 1 tablet 09/30/24 09:00 09/30/24 09:02 Multivitamins Therapeutic Tab (*Bkc) PO 1 tablet DAILY PAULY Administration Phenytoin Sodium 200 mg 09/30/24 09:20 09/30/24 20:27 Phenytoin Sodium 100 Mg Extended Release Cap PO 200 mg Q12HR PAULY Administration Umeclidinium/Vilanterol 1 puff 09/30/24 08:00 09/30/24 08:44 Umeclidinium/Vilanterol 62.5-25 Mcg Ellipta INHALATION 1 puff DAILYRT PAULY Administration Radiology Results: ITS Impressions Chest X-Ray 09/29/24 14:17 IMPRESSION: 1. Mild increased interstitial pattern in the bilateral lower lung zones which could represent mild pulmonary edema or pneumonia.
[2024-10-01] MEDS: UMECLIDINIUM/VILANTEROL 62.5-25 MCG ELLIPTA 1 PUFF INHALATION (08:48)
[2024-10-01] MEDS: CITALOPRAM HYDROBROMIDE 20 MG TABLET PO (08:50)
[2024-10-01] MEDS: guaiFENesin 12 HR 600 MG TABCR PO ×2 (08:50→21:12)
[2024-10-01] MEDS: FOLIC ACID 0.4 MG TABLET 0.8 MG PO (08:50)
[2024-10-01] MEDS: MULTIVITAMINS THERAPEUTIC TAB (*BKC) 1 TABLET PO (08:50)
[2024-10-01] MEDS: ENOXAPARIN 40 MG/0.4 ML SYRINGE SUB-Q (08:50)
[2024-10-01] MEDS: PHENYTOIN SODIUM 100 MG EXTENDED RELEASE CAP 200 MG PO ×2 (08:50→21:11)
[2024-10-01] MEDS: FUROSEMIDE 20 MG TABLET PO (08:50)
[2024-10-01 10:33] LABS: Hematocrit 44.8 % (42.0-52.0); Hemoglobin 14.2 g/dL (14.0-18.0); Mean Corpuscular HGB Conc 31.7 g/dl (32-36); Mean Corpuscular Hemoglobin 31.4 pg (26-34); Mean Corpuscular Volume 99.1 fl (80-100); Mean Platelet Volume 9.4 fl (7.4-10.4); Platelet Count Result 136 k/mm3 (150-375); Red Blood Count 4.52 M/mm3 (4.6-6.20); White Blood Count 9.2 K/mm3 (4.5-10.0)
[2024-10-01 10:47] LABS: Anion Gap 10 mmol/L (4-12); Blood Urea Nitrogen 22 mg/dL (9-20); Calcium 8.1 mg/dL (8.4-10.2); Carbon Dioxide 28 mmol/L (22-30); Chloride 97 mmol/L (98-107); Estimated CRCL calculation 117 ml/min; Estimated Glomerular Filt Rate > 60; Glucose 246 mg/dL (65-110); Potassium 4.3 mmol/L (3.4-5.0); Sodium 135 mmol/L (137-145)
[2024-10-01 11:12] LABS: Band Neutrophils Percent 6 % (0-6); Basophils Percent Manual 0 % (0-1); Eosinophils Percent Manual 0 % (0-4); Lymphocytes Absolute Manual 0.82 K/mm3 (1.1-4.5); Lymphocytes Percent Manual 9 % (18-44); Monocytes Absolute Manual 0.55 K/mm3 (0.1-0.90); Monocytes Percent Manual 6 % (3-9); Neutrophils Absolute Manual 7.82 K/mm3 (1.3-6.7); Neutrophils Percent Manual 79 % (46-73); Platelet Estimate Slightly Decreased (Adequate); Total Cells Counted 100
[2024-10-01 11:13] LABS: Giant Platelets Present; Large Platelets Present
[2024-10-01 11:15] LABS: Burr Cells 1+; Schistocytes Rare
[2024-10-01] MEDS: FUROSEMIDE INJ 40 MG/4 ML VIAL IV PUSH (12:15)
[2024-10-01] MEDS: AZITHROMYCIN 500 MG/NS 250 ML 500 MG/250 ML BAG 250 MG IVPB (12:15)
[2024-10-02] VITALS (25 sets, daily range): BP systolic 109–145; BP diastolic 59–89; PULSE 44–67; RESP 17–22; TEMP 36.4–36.8; O2SAT 88–100
[2024-10-02] MEDS: IPRATROPIUM 0.5 MG/ALBUTEROL SULFATE 2.5 MG AMPUL.NEB 3 ML INHALATION ×4 (01:35→20:36)
[2024-10-02 04:47] LABS: Hematocrit 42.7 % (42.0-52.0); Mean Corpuscular HGB Conc 32.8 g/dl (32-36); Mean Corpuscular Hemoglobin 31.8 pg (26-34); Platelet Count Result 143 k/mm3 (150-375); Red Cell Distribution Width 13.7 % (11.5-14.5); White Blood Count 10.7 K/mm3 (4.5-10.0)
[2024-10-02 04:57] LABS: Anion Gap 6 mmol/L (4-12); Blood Urea Nitrogen 24 mg/dL (9-20); Calcium 8.2 mg/dL (8.4-10.2); Carbon Dioxide 31 mmol/L (22-30); Chloride 98 mmol/L (98-107); Estimated CRCL calculation 131 ml/min; Estimated Glomerular Filt Rate > 60; Glucose 144 mg/dL (65-110); Potassium 4.3 mmol/L (3.4-5.0); Sodium 135 mmol/L (137-145)
[2024-10-02 05:25] LABS: Anisocytosis 1+; Band Neutrophils Percent 2 % (0-6); Monocytes Percent Manual 1 % (3-9); Neutrophils Absolute Manual 8.98 K/mm3 (1.3-6.7); Neutrophils Percent Manual 82 % (46-73); Platelet Estimate Adequate (Adequate); Total Cells Counted 100
[2024-10-02 05:26] LABS: Schistocytes None Seen; Smudge Cells PRESENT
[2024-10-02] MEDS: methylPREDNISolone SOD SUCC 125 MG VIAL 60 MG IV PUSH (05:32)
[2024-10-02] MEDS: UMECLIDINIUM/VILANTEROL 62.5-25 MCG ELLIPTA 1 PUFF INHALATION (07:40)
[2024-10-02] MEDS: ENOXAPARIN 40 MG/0.4 ML SYRINGE SUB-Q (08:59)
[2024-10-02] MEDS: PHENYTOIN SODIUM 100 MG EXTENDED RELEASE CAP 200 MG PO ×2 (08:59→20:48)
[2024-10-02] MEDS: MULTIVITAMINS THERAPEUTIC TAB (*BKC) 1 TABLET PO (08:59)
[2024-10-02] MEDS: guaiFENesin 12 HR 600 MG TABCR PO ×2 (08:59→20:48)
[2024-10-02] MEDS: FOLIC ACID 0.4 MG TABLET 0.8 MG PO (09:00)
[2024-10-02] MEDS: CITALOPRAM HYDROBROMIDE 20 MG TABLET PO (09:00)
[2024-10-02] MEDS: FUROSEMIDE 20 MG TABLET PO (09:00)
--- NOTE | 2024-10-02 09:52 | PC.NURSE ---
On 10/02/24, the student, [Elsie Alicea], provided care and completed [facility] documentation on this patient. I have reviewed the student's documentation and agree with the findings.
--- NOTE | 2024-10-02 10:59 | P.PNIM_ITS ---
Progress Note: A&P Assessment and Plan (1) Influenza A: Code(s): J10.1 - Influenza due to other identified influenza virus with other respiratory manifestations Status: Acute (2) COPD (chronic obstructive pulmonary disease): Qualifiers: COPD type: COPD with acute exacerbation Qualified Code(s): J44.1 - Chronic obstructive pulmonary disease with (acute) exacerbation Code(s): J44.9 - Chronic obstructive pulmonary disease, unspecified Status: Acute (3) TAMAR (obstructive sleep apnea): Code(s): G47.33 - Obstructive sleep apnea (adult) (pediatric) Status: Chronic (4) Tobacco use: Code(s): Z72.0 - Tobacco use Status: Chronic (5) Hypoxia: Code(s): R09.02 - Hypoxemia Status: Acute (6) Community acquired pneumonia: Qualifiers: Laterality: unspecified laterality Qualified Code(s): J18.9 - Pneumonia, unspecified organism Code(s): J18.9 - Pneumonia, unspecified organism Status: Acute Plan # Acute respiratory failure with hypoxemia Likely resulting from pneumonia and fluid overload ABG showed pH 7.455, pCO2 44.1, pO2 48.3, HCO3 30.3, O2 sat 85.8 % on 4L NC. place on BiPAP for work of breathing, ABG with no hypercarbia baseline supplemental O2 need: 8L w/CPAP at night time. Non at rest and uses intermittently with exertion Currently at 6 L at rest. Pulmonary consultation Will switch to CPAP at night # Community acquired pneumonia: Chest x-ray suggests bilateral lobe pneumonia and med pulmonary edema Possible resulting from bacteriuria infection superimposed influenza a effect Continue azithromycin ceftriaxone and Tamiflu # Influenza A: - tested positive for influenza A on 09/29, symptom onset was 5 days ago - out of window for Tamiflu 75 mg - supportive care, see above - monitor WBC/CBC # Fluid overload, Possible acute on chronic diastolic heart failure Crackles bilateral base / Lasix 40 mg IV push once. Continue oral Lasix Echocardiogram April 06, 2022 showed normal EF Repeat echocardiogram 1. Left ventricular chamber dimension is normal. 2. Left ventricular systolic function is normal, estimated at 60-65%. 3. The left ventricular diastolic function is normal. 4. E/e' 7 is not elevated. provide Lasix 40 mg IV push once again / On oral Lasix. Does not appear fluid overloaded currently # COPD (chronic obstructive pulmonary disease): oYung hao Received Solu-Medrol 125-in the ED, continue 60 mg IV q.6 Continue ceftriaxone and azithromycin on 09/29 Switched to oral steroid. Pulmonary consultation # Sinus bradycardia EKG shows sinus rhythm, heart rate 60 upon arrival, Repeat EKG : Sinus bradycardia 55, Place patient telemetry monitoring Patient is asymptomatic # TAMAR (obstructive sleep apnea): continue home CPAP # seizure disorder on phenytoin line # anxiety/depression: On citalopram # Tobacco use: - 1 PPD x20+ years - denied need for nicotine patch # DVT prophylaxis: Lovenox # code status: Full code Subjective Date/time seen: 10/02/24 10:59 Interval history: No overnight events. Remains on 6 L oxygen. Shortness of breath have improved. Minimal cough. Review of Systems Review of Systems: All systems reviewed & are unremarkable except as noted in HPI and below Exam Narrative: GENERAL: Pleasant, in no acute distress. Well-nourished. - EYES: EOMI. Anicteric. - HENT: Moist mucous membranes. - LUNGS: Coarse breath sound bilaterall y, no wheezes or crackles - CARDIOVASCULAR: Regular rate and rhyth m. No murmur. No JVD. - ABDOMEN: Soft, non-tender and non-dist ended. No palpable masses. - EXTREMITIES: No edema. Peripheral puls es 2+. Non-tender. - NEUROLOGIC: No focal neurological defi cits. CN II-XII grossly intact. - PSYCHIATRIC: Awake, Alert and oriented x 3. Appropriate mood and affect. - SKIN: No rashes or lesions. Warm. - LYMPH: No cervical lymphadenopathy. Objective Data Vital Signs Vital Signs: Vital Signs - 24 hr 10/01/24 11:29 10/01/24 12:00 10/01/24 12:00 Temperature 98.5 F Pulse Rate 50 L 58 L Respiratory Rate 16 Blood Pressure 131/81 Pulse Oximetry 96 96 Oxygen Delivery High Flow Nasal Cannula Oxygen Flow Rate 6 Fraction of Inspired Oxygen 10/01/24 14:00 10/01/24 14:14 10/01/24 14:26 Temperature Pulse Rate 67 56 L 57 L Respiratory Rate 20 20 Blood Pressure Pulse Oximetry Oxygen Delivery Oxygen Flow Rate Fraction of Inspired Oxygen 10/01/24 15:49 10/01/24 16:00 10/01/24 18:00 Temperature 98.3 F Pulse Rate 58 L 51 L 52 L Respiratory Rate 18 Blood Pressure 127/72 Pulse Oximetry 95 Oxygen Delivery Oxygen Flow Rate Fraction of Inspired Oxygen 10/01/24 20:00 10/01/24 20:00 10/01/24 20:00 Temperature 98 F Pulse Rate 54 L 67 Respiratory Rate 18 Blood Pressure 129/80 Pulse Oximetry 92 92 Oxygen Delivery High Flow Nasal Cannula Oxygen Flow Rate 6 Fraction of Inspired Oxygen 10/01/24 21:14 10/01/24 21:14 10/01/24 21:30 Temperature Pulse Rate 54 L 60 Respiratory Rate 20 20 Blood Pressure Pulse Oximetry 93 Oxygen Delivery High Flow Nasal Cannula Oxygen Flow Rate 6 Fraction of Inspired Oxygen 10/01/24 22:00 10/01/24 23:00 10/01/24 23:33 Temperature 98.2 F Pulse Rate 58 L 52 L 47 L Respiratory Rate 17 18 Blood Pressure 128/80 Pulse Oximetry 93 91 Oxygen Delivery BiPAP Oxygen Flow Rate Fraction of Inspired Oxygen 10/02/24 00:00 10/02/24 00:00 10/02/24 01:35 Temperature Pulse Rate 46 L 44 L Respiratory Rate 17 Blood Pressure Pulse Oximetry 96 93 Oxygen Delivery BiPAP BiPAP Oxygen Flow Rate Fraction of Inspired Oxygen 40 10/02/24 01:35 10/02/24 02:00 10/02/24 04:00 Temperature Pulse Rate 44 L 50 L Respiratory Rate 17 Blood Pressure Pulse Oximetry 93 Oxygen Delivery BiPAP Oxygen Flow Rate Fraction of Inspired Oxygen 40 10/02/24 04:00 10/02/24 04:00 10/02/24 04:09 Temperature 98 F Pulse Rate 57 L 46 L 55 L Respiratory Rate 18 18 Blood Pressure 145/89 H Pulse Oximetry 93 93 Oxygen Delivery BiPAP Oxygen Flow Rate Fraction of Inspired Oxygen 10/02/24 06:00 10/02/24 07:40 10/02/24 07:40 Temperature Pulse Rate 45 L 52 L Respiratory Rate 20 Blood Pressure Pulse Oximetry 94 Oxygen Delivery High Flow Nasal Cannula Oxygen Flow Rate 6 Fraction of Inspired Oxygen 10/02/24 07:57 10/02/24 08:00 10/02/24 08:00 Temperature 97.8 F Pulse Rate 54 L 55 L Respiratory Rate 20 22 H Blood Pressure 143/88 H Pulse Oximetry 100 91 Oxygen Delivery High Flow Therapy with Na Oxygen Flow Rate 6 Fraction of Inspired Oxygen 10/02/24 09:28 Temperature Pulse Rate Respiratory Rate Blood Pressure Pulse Oximetry 88 L Oxygen Delivery High Flow Nasal Cannula Oxygen Flow Rate 6 Fraction of Inspired Oxygen Intake/Output Intake/Output: Intake & Output 09/29/24 09/30/24 10/01/24 10/02/24 23:59 23:59 23:59 23:59 Intake Total 290 2180 1870 1000 Output Total 2350 3510 1100 Balance 290 -262 -1640 -100 Meds/Results Medications: Active Medications Generic Name Dose Route Start Last Admin Trade Name Freq PRN Reason Stop Dose Admin Acetaminophen 650 mg 09/29/24 15:15 Acetaminophen 325 Mg Tablet PO Q6H PRN Mild Pain (1-3) or Fever Albuterol/Ipratropium 3 ml 09/29/24 20:00 10/02/24 07:40 Ipratropium 0.5 Mg/Albuterol Sulfate 2.5 Mg Ampul.Neb 3 Ml INHALATION 3 ml Q6HRT HAO Administration Benzocaine 1 lozenge 09/29/24 15:15 Benzocaine/Menthol (*Bkc) 18 Ea Lozenge PO PRN PRN Sore Throat Benzonatate 100 mg 09/29/24 15:15 Benzonatate 100 Mg Capsule PO TID PRN Cough Citalopram Hydrobromide 20 mg 09/30/24 09:00 10/02/24 09:00 Citalopram Hydrobromide 20 Mg Tablet PO 20 mg DAILY HAO Administration Diphenoxylate HCl/Atropine 1 tablet 09/29/24 20:35 09/30/24 20:34 Diphenoxylate/Atropine (*Crx) 2.5 Mg Tablet PO 1 tablet PRN PRN Administration Diarrhea Enoxaparin Sodium 40 mg 09/30/24 09:00 10/02/24 08:59 Enoxaparin 40 Mg/0.4 Ml Syringe SUB-Q 40 mg DAILY HAO Administration Folic Acid 0.8 mg 09/30/24 09:00 10/02/24 09:00 Folic Acid 0.4 Mg Tablet PO 0.8 mg QAM HAO Administration Furosemide 20 mg 09/30/24 09:00 10/02/24 09:00 Furosemide 20 Mg Tablet PO 20 mg QAM HAO Administration Guaifenesin 600 mg 09/29/24 21:00 10/02/24 08:59 Guaifenesin 12 Hr 600 Mg Tabcr PO 600 mg Q12HR HAO Administration Ceftriaxone Sodium 1 gm in 50 mls @ 100 mls/hr 09/30/24 12:00 10/01/24 12:15 Rocephin 1 Gm/Ns 50 Ml IVPB 100 mls/hr Q24H HAO Administration Azithromycin 500 mg in 250 mls @ 250 mls/hr 09/30/24 12:00 10/01/24 12:15 Zithromax IVPB 250 mls/hr Q24H HAO Administration Methylprednisolone Sodium Succinate 60 mg 09/29/24 18:00 10/02/24 05:32 Methylprednisolone Sod Succ 125 Mg Vial IV PUSH 60 mg Q6HR HAO Administration Multivitamins Therapeutic 1 tablet 09/30/24 09:00 10/02/24 08:59 Multivitamins Therapeutic Tab (*Bkc) PO 1 tablet DAILY HAO Administration Phenytoin Sodium 200 mg 09/30/24 09:20 10/02/24 08:59 Phenytoin Sodium 100 Mg Extended Release Cap PO 200 mg Q12HR HAO Administration Sodium Chloride 1 spray 10/02/24 10:28 Saline 0.65% Edwin Soln 44 Ml Btl NASAL Q6HR PRN Congestion Umeclidinium/Vilanterol 1 puff 09/30/24 08:00 10/02/24 07:40 Umeclidinium/Vilanterol 62.5-25 Mcg Ellipta INHALATION 1 puff DAILYRT AHO Administration Radiology Results: ITS Impressions Chest X-Ray 09/29/24 14:17 IMPRESSION: 1. Mild increased interstitial pattern in the bilateral lower lung zones which could represent mild pulmonary edema or pneumonia. Labs Labs: Laboratory Results - last 24 hr 10/01/24 10/02/24 10:21 04:12 WBC 9.2 10.7 H RBC 4.52 L 4.40 L Hgb 14.2 14.0 Hct 44.8 42.7 MCV 99.1 97.0 MCH 31.4 31.8 MCHC 31.7 L 32.8 RDW 14.0 13.7 Plt Count 136 L 143 L MPV 9.4 9.0 Immature Gran % (Auto) Not Reportable Not Reportable Neut % (Auto) Not Reportable Not Reportable Lymph % (Auto) Not Reportable Not Reportable [place] % (Auto) Not Reportable Not Reportable Eos % (Auto) Not Reportable Not Reportable Baso % (Auto) Not Reportable Not Reportable Lymph # (Auto) Not Reportable Not Reportable [place] # (Auto) Not Reportable Not Reportable Eos # (Auto) Not Reportable Not Reportable Baso # (Auto) Not Reportable Not Reportable Abs Immat Gran (auto) Not Reportable Not Reportable Absolute Neuts (auto) Not Reportable Not Reportable Absolute Nucleated RBC Not Reportable Not Reportable Total Counted 100 100 Neutrophils % (Manual) 79 H 82 H Band Neutrophils % 6 2 Lymphocytes % (Manual) 9 L 15.0 L Monocytes % (Manual) 6 1 L Eosinophils % (Manual) 0 Basophils % (Manual) 0 Nucleated RBC % Not Reportable Not Reportable Abs Neuts (Manual) 7.82 H 8.98 H Abs Lymphs (Manual) 0.82 L 1.60 Abs Monocytes (Manual) 0.55 0.10 Absolute Eos (Manual) 0.00 L Abs Basophils (Manual) 0.00 Smudge Cells Present Platelet Estimate Slightly decreased Adequate Large Platelets Present Giant Platelets Present Anisocytosis 1+ Link Cells 1+ Schistocytes Rare None seen Sodium 135 L Potassium 4.3 Chloride 98 Carbon Dioxide 31 H Anion Gap 6 BUN 24 H Creatinine 0.53 L Estim Creat Clear Calc 131 Estimated GFR > 60 Glucose 144 H Calcium 8.2 L
[2024-10-02] MEDS: AZITHROMYCIN 500 MG/NS 250 ML 500 MG/250 ML BAG 250 MG IVPB (12:14)
--- NOTE | 2024-10-02 14:20 | PCPTNOTE ---
Received PT orders, eval not completed; in hallway talking with RN Paz, she reported pt has been walking to the bathroom by himself. As we were standing in the hallway, he was walking in his room indep. Skilled PT services are not indicated. Order discharged.
--- NOTE | 2024-10-02 14:25 | PM.CNPUL ---
Assessment and Plan Assessment and plan (1) Influenza A: Code(s): J10.1 - Influenza due to other identified influenza virus with other respiratory manifestations Status: Acute Assessment and Plan: Patient presented on 09/30/2023 with influenza A infection. He had symptoms for 5 days and was not treated with Tamiflu. He had worsening hypoxic respiratory failure and required BiPAP support for work of breathing. He was treated with Solu-Medrol 60 mg IV q.6 hours since admission. 10/03/2023: patient remained hypoxemic and Pulmonary was consulted. The patient tells me he is much improved since admission. He tells me he is 75% back to normal. His cough is completely resolved. He has no phlegm. Last night the patient wore Hospital BiPAP rate of 16, pressures 12/6 with 40% FiO2 last night. Patient is afebrile. White blood cell count 10.7, creatinine 0.53. yesterday is -1.3 L and since admission he is -2.4 L. weight is 102.9 kg with an admission weight of 104 kg. When I enter the room the patient was on 5 L nasal cannula with an ear pulse oximeter. I placed a hand pulse oximeter on him and the ear was reading 3 points lower than the hand. I decreased him to 4 L and his saturations were 93%. Solu-Medrol 60 q.6 discontinued after the morning dose. CT angiogram of the chest negative for pulmonary embolism, bilateral consolidations in both lung bases, mediastinal bilateral hilar lymphadenopathy. Plan: the patient has continued to improve. Patient had a CT scan today with bibasilar consolidations and is on day 4 ceftriaxone and azithromycin. Will continue ceftriaxone or an equivalent home antibiotic for 7 days and continue azithromycin for a total of [address] Lugo the, will follow with you. (2) COPD (chronic obstructive pulmonary disease): Qualifiers: COPD type: COPD with acute exacerbation Qualified Code(s): J44.1 - Chronic obstructive pulmonary disease with (acute) exacerbation Code(s): J44.9 - Chronic obstructive pulmonary disease, unspecified Status: Acute Assessment and Plan: GOLD grade 3 group B COPD Patient smoke 1 pack per day from age 13 to 33 and then quit for 18 years and recently has been smoking 1.25 packs per day until admission. Total pack years 42. Alpha 1 anti trypsin genotype MM. PFT 5/19/23 - Moderately severe obstructive airway disease with evidence of air trapping and no response to bronchodilators on this testing. Severely reduced lung diffusion capacity. Home O2 Eval 11/16/22 ? requires 4L O2 with exertion, none at rest. Patient has obstructive sleep apnea and uses CPAP 16 with 6.5 L bleed in at night. Recently the patient has had worsening hypoxemic respiratory failure at home with saturations 89-91 at rest on room air. With activities saturations decreased into the 60s on room air. Admitted on 09/29/2024 with an ABG on 4 L nasal cannula 7.46/44/48. There is no evidence of hypercarbic respiratory failure. 10/02/24: Currently the patient says he is 75% back to his normal. His cough is resolved. He has no phlegm. Currently is on 4 L at rest with saturations 93%. Plan: I will continue DuoNebs q.6 hours. Since he was on appropriate doses of beta agonist and muscarinic antagonists I will discontinue his Anoro Ellipta. He has no wheezes with influenza a infection and I have discontinued his steroids. Continue guaifenesin 600 mg p.o. q.12 hours. Goal saturation 90-94%, Smoking cessation counseling was provided and the patient tells me that he has quit smoking. (3) TAMAR (obstructive sleep apnea): Code(s): G47.33 - Obstructive sleep apnea (adult) (pediatric) Status: Chronic Assessment and Plan: PSG 01/29/20 - severe sleep apnea, AHI 42.1. patient uses 6.5 L bleed in Last download compliance through [facility] from 02/06/2024 through 05/05/2024. Patient is on CPAP 16 with EPR level 2, usage days greater than or equal to 4 hours was 99%. Average usage on days used is 9 hours and 41 minutes. AHI 0.3. Apnea index 0.1. Hypopnea index 0.2, central apnea index 0.0. Median leak 2.6. Ninety-fifth percentile leak 20.7. Maximum leak 28.6. I interpret this download as excellent compliance, adequate pressures and moderate leak. 10/02/24: The patient tells me he has improved and thinks he would be able to tolerate his CPAP with 7 L bleed in tonight. Plan: Will have patient wears home CPAP with 7 L bleed in and perform an overnight oximetry with these settings. History of Present Illness History of Present Illness Consult date: 10/02/24 Chief complaint: Influenza/Pneumonia/COPD/Hypoxia Narrative: 10/02/2024: This is a new pulmonary consult for influenza a with hypoxic respiratory failure. 69-year-old male with a history of GOLD grade 3 group B COPD on no oxygen at rest and 4 L with activity, TAMAR on CPAP 16 with 6.5 L bleed in, GERD and seizures. Patient is followed in the [facility]monary [facility] in last seen on 05/11/2024. This is a copy of the note 3 month follow-up regarding TAMAR on CPAP and COPD on oxygen. PCP Dr. Hai Ortiz. Hx: TAMAR, COPD, seizures He reports stable COPD symptoms, no ER visits. [place] occurs with stairs but w/o ADL interference. Cough is minimal with clear sputum in the morning. Denies wheezing, chest pains/tightness, fever, hemoptysis, or nighttime breathing issues. He takes Anoro daily. Has albuterol that he rarely uses. Has a nebulzier as well that he never uses; would benefit from new albuterol neb vials. He has a POC that he uses with activity 4L. He is a current smoker 3/4ppd. He is compliant with CPAP nightly and has O2 bleed in at 6.5L. Sleep overall is good and daytime function is good. DME IVR. Continue Anoro 1 inhalation a day, albuterol inhaler nebulizer p.r.n., requires 4 L with activity none at rest. 6.5 L bleed in with CPAP. On CPAP [id number] w/ EPR 2 w/ 6.5L O2 bleed-in. Download shows excellent compliance, 100% nights used. Avg usage 9.7hrs/night. AHI 0.3. Follow-up in 6 months. download compliance through [facility] from 02/06/2024 through 05/05/2024. Patient is on CPAP 16 with EPR level 2, usage days greater than or equal to 4 hours was 99%. Average usage on days used is 9 hours and 41 minutes. AHI 0.3. Apnea index 0.1. Hypopnea index 0.2, central apnea index 0.0. Median leak 2.6. Ninety-fifth percentile leak 20.7. Maximum leak 28.6. I interpret this download as excellent compliance, adequate pressures and moderate leak. at baseline the patient coughs 3-4 times in the morning and expectorates 1-2 times in the morning. At home he knows wears no oxygen at rest with home saturations 89-91. With activity around the house he wears no oxygen and when he goes up and down the stairs his saturations are in the 60s. When he walks to the mailbox is saturations were 75-80. He sits down and rests and his saturations returned. When he goes out to the store he wears a portable oxygen concentrator on 4 but does not measure his saturations. 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 09/30/2023 patient presented to the emergency department with worsening shortness of breath over the last week, fever, hypoxemia. Blood pressure 110/70, heart rate 95, saturations on 6 L nasal cannula oxygen 88%. wheezing In the ED but not on the H and from the hospitalist. White blood cell count 8.1, creatinine 0.55, serum bicarb 32, eosinophils 0%. Lactic acid 0.8. BNP 170. Influenza a RT PCR study positive. ABG on 4 L nasal cannula 7.46/44/48. Chest x-ray with bibasilar infiltrates. He received 2 breathing treatments and had increased work of breathing and was started on BiPAP 12/6 with 36% FiO2 for increased work of breathing. Repeat blood gas 6 hours later 7.42/ 40/72. He was given IV steroids. empirically started on ceftriaxone and azithromycin. not given Tamiflu as it was felt he was outside the window for treatment. Given Lasix 40 IV for fluid overload. 10/01/2023: 6 L nasal cannula saturation 95%. On Solu-Medrol 60 q.6. 10/02/2023: 7 L nasal cannula saturations 92%. On Solu-Medrol 60 q.6. 10/03/2023: patient remained hypoxemic and Pulmonary was consulted. The patient tells me he is much improved since admission. He tells me he is 75% back to normal. His cough is completely resolved. He has no phlegm. Last night the patient wore Hospital BiPAP rate of 16, pressures 12/6 with 40% FiO2 last night. Patient is afebrile. White blood cell count 10.7, creatinine 0.53. yesterday is -1.3 L and since admission he is -2.4 L. weight is 102.9 kg with an admission weight of 104 kg. When I enter the room the patient was on 5 L nasal cannula with an ear pulse oximeter. I placed a hand pulse oximeter on him and the ear was reading 3 points lower than the hand. I decreased him to 4 L and his saturations were 93%. Solu-Medrol 60 q.6 discontinued after the morning dose. CT angiogram of the chest negative for pulmonary embolism, bilateral consolidations in both lung bases, mediastinal bilateral hilar lymphadenopathy. DATA: 10/02/24: EXAMINATION: CTA chest PE protocol DATE: 10/02/2024 14:45 CDT INDICATION: Hypoxia TECHNIQUE: Computed tomographic angiography (CTA) of the chest was performed with 100 mL Omnipaque-350 intravenous contrast. The dose-length product was 744.72 mGy-cm. Maximum intensity projection 3D-reconstructions of the aorta and other arteries were constructed by the technologist on a separate workstation. Automated exposure control and iterative reconstruction technique were employed. COMPARISON: CT dated 05/19/2024. FINDINGS: Enlarged pulmonary arteries consistent with pulmonary hypertension. Study is technically adequate without evidence for pulmonary embolism. Borderline heart size. There is mediastinal and hilar lymphadenopathy. No significant pleural or pericardial effusion. There is emphysema. No endobronchial lesions. There is bilateral lower lobe airspace consolidation with groundglass opacification of both lungs. No endobronchial lesions. No pneumothorax. There are multiple compression fractures of the thoracic spine, unchanged, chronic. IMPRESSION: 1. No evidence for pulmonary embolism. 2: Lower lobe consolidation bilaterally with areas of groundglass opacification in both lungs. Differential diagnosis includes pneumonia and/or atelectasis. 3: Mediastinal and bilateral hilar lymphadenopathy. Differential diagnosis includes reactive lymphadenopathy versus metastatic disease. Correlate for history of malignancy. 09/30/24: Echo Summary 1. Left ventricular chamber dimension is normal. 2. Left ventricular systolic function is normal, estimated at 60-65%. 3. The left ventricular diastolic function is normal. 4. E/e' 7 is not elevated. Right Ventricle Right ventricular systolic function is normal and with normal TAPSE 2.1 cm. Right ventricular chamber dimension is mildly enlarged. Right Atria Right atrial chamber dimension is normal. no PASP provided 05/19/2024: EXAMINATION:CT lung screening DATE: 05/19/2024 14:39 INDICATION: Personal history of nicotine dependence. Current smoker with 49 pack year history. TECHNIQUE: Computed tomography (CT) of the chest was performed without intravenous contrast. Automated exposure control and iterative reconstruction technique were employed. The dose-length product (DLP) was 245.35 mGy-cm. COMPARISON: Chest CT 04/08/2023, 04/03/22 FINDINGS: There is a 10 mm nodule in right lower lobe, stable from 04/03/22. There is peripheral septal thickening in the lungs associated with groundglass opacities. There is mild emphysema. No pleural effusion. The heart size is normal. There are coronary artery calcifications. No pericardial effusion. The central pulmonary arteries are enlarged, consistent with pulmonary arterial hypertension. There is chronic fat stranding at the root of the small bowel mesentery. There is mild thoracic spondylosis. There are multiple chronic compression fractures in the spine. IMPRESSION: 1. Lung-RADS category 2: Benign appearance or behavior. Continue annual screening with noncontrast low-dose chest CT in 12 months. RAST 09/22/21 - mild +dust, + moderate [place] grass, mild +Ragweed, IgE 149 Alpha 1 serum 169; PIMM IgG 1367 TB GOLD neg PFT 07/15/19 - moderate airflow obstruction. FEV1 53% FEV1/FVC 61% PFT 11/16/22 - Moderately severe obstructive airway disease with evidence of air trapping and no response to bronchodilators on this testing. Severely reduced lung diffusion capacity. Home O2 Eval 11/16/22 ? requires 4L O2 with exertion, none at rest. LDCT 04/03/22 - 12mm RLL with recommendation for a CT in [address] 10/12/22 ? stable 12mm noncalcified RLL pulmonary nodules. Mild ggo vs chronic scarring. F/u Chest CT in [address] 05/09/23 @ [facility] ? unchanged 1.1cm RLL nodule. No adenopathy. 3 month f/u CT vs PET-CT recommended. Echo 06/03/20 ? EF 60-65%. RVSP not calculated. Echo 04/06/22 - EF 60-65%, RVSP not calculated. PAP Titration study 12/28/21 - recommended [id number] w/ 6L O2 bleed-in PSG 01/29/20 - severe sleep apnea, AHI 42.1. CPAP 02/18/2020- recommend CPAP 12 w/ 3L O2. Review of Systems Constitutional: Constitutional: Reports no additional constitutional complaints Eyes: Eyes: Reports no additional eye complaints ENT: Reports system reviewed and no additional complaints, except as documented Cardiovascular: Cardiovascular: Reports no additional cardiovascular complaints Respiratory: Respiratory: Reports no additional respiratory complaints Gastrointestinal: Gastrointestinal: Reports no additional gastrointestinal complaints Musculoskeletal: Musculoskeletal: Reports no additional musculoskeletal complaints Neurologic: Reports system reviewed and no additional complaints, except as documented Psychiatric: Psychiatric: Reports no additional psychiatric complaints Endocrine: Endocrine: Reports no additional endocrine complaints Hematologic/Lymphatic: Hematologic/Lymphatic: Reports no additional hematologic/lymphatic complaints Allergic/Immunologic: Allergic/Immunologic: Reports no additional allergic/immunologic complaints PMFSH Past Medical History Medical History Seizures Family history of esophageal cancer GERD (gastroesophageal reflux disease) Esophageal erosions Esophageal polyp COPD (chronic obstructive pulmonary disease) Family History Family History Father Esophageal cancer Mother Throat cancer Depression Heart disease Thyroid disorder Social History Social History Social History: He is a current smoker 3/4ppd; started age 13 to 29 1.5ppd, quit for 15 years then restarted smoking 1998 up to now. Was 2ppd for first few years then around 3/4-1ppd currently; ~49 pack years. Smoking packs per day: 1 Smoking cigarettes per day: 20.0 Years smoked: 41 Smoking pack-years: 41.00 Smoking status: Current every day smoker Tobacco type: cigarettes Second hand tobacco smoke exposure: No Alcohol intake: current Drinks per week: 3 Alcohol use details: rare Substance use: never Substance use type: does not use Do You Feel Safe in your Home?: Yes Lack of Transportation: No Lack of Food: Never True Current Housing: I Have Housing Concerned About Future Housing: No Difficulty Paying Gas/Electric Bills: No Difficulty Paying for Meds: No Currently Unemployed: No Education: Bachelor's Degree Difficulty w/ Childcare or Family Care: No Living arrangements: alone Occupation/Education: retired Spiritual care concerns: No Meds Home Medications and Allergies Home Medications ?Medication ?Instructions ?Recorded ?Confirmed ?Type citalopram 20 mg tablet 20 mg PO DAILY 05/30/22 09/29/24 History folic acid 800 mcg tablet 0.8 mg PO DAILY 05/30/22 09/29/24 History furosemide 20 mg tablet 20 mg PO QAM 05/30/22 09/29/24 History multivitamin (Daily Multi-Vitamin 1 tablet PO DAILY 05/30/22 09/29/24 History tablet) Anoro Ellipta 62.5 mcg-25 1 inh inhalation DAILY 90 days 01/31/24 09/29/24 Rx mcg/actuation powder for #180 ea inhalation (umeclidinium-vilanterol) albuterol sulfate 90 mcg/actuation 1 - 2 inh inhalation Q4-6H PRN 01/31/24 09/29/24 Rx aerosol inhaler shortness of breath or wheezing #8.5 grams albuterol sulfate 2.5 mg/3 mL 2.5 mg (3 mL) inhalation QID PRN 05/11/24 09/29/24 Rx (0.083 %) solution for nebulization shortness of breath or wheezing #360 mL phenytoin sodium extended 100 mg 200 mg PO Q12H 09/30/24 09/30/24 History capsule Allergies Allergy/AdvReac Type Severity Reaction Status Date / Time No Known Allergies Allergy Unknown Verified 09/29/24 13:51 Vital Signs Vital Signs - 24 hr 10/01/24 14:26 10/01/24 15:49 10/01/24 16:00 Temperature 36.8 C Pulse Rate 57 L 58 L 51 L Respiratory Rate 20 18 Blood Pressure 127/72 Pulse Oximetry 95 Oxygen Delivery Oxygen Flow Rate Fraction of Inspired Oxygen 10/01/24 18:00 10/01/24 20:00 10/01/24 20:00 Temperature 36.6 C Pulse Rate 52 L 54 L Respiratory Rate 18 Blood Pressure 129/80 Pulse Oximetry 92 92 Oxygen Delivery High Flow Nasal Cannula Oxygen Flow Rate 6 Fraction of Inspired Oxygen 10/01/24 20:00 10/01/24 21:14 10/01/24 21:14 Temperature Pulse Rate 67 54 L Respiratory Rate 20 Blood Pressure Pulse Oximetry 93 Oxygen Delivery High Flow Nasal Cannula Oxygen Flow Rate 6 Fraction of Inspired Oxygen 10/01/24 21:30 10/01/24 22:00 10/01/24 23:00 Temperature Pulse Rate 60 58 L 52 L Respiratory Rate 20 17 Blood Pressure Pulse Oximetry 93 Oxygen Delivery BiPAP Oxygen Flow Rate Fraction of Inspired Oxygen 10/01/24 23:33 10/02/24 00:00 10/02/24 00:00 Temperature 36.8 C Pulse Rate 47 L 46 L Respiratory Rate 18 Blood Pressure 128/80 Pulse Oximetry 91 96 Oxygen Delivery BiPAP Oxygen Flow Rate Fraction of Inspired Oxygen 40 10/02/24 01:35 10/02/24 01:35 10/02/24 02:00 Temperature Pulse Rate 44 L 44 L 50 L Respiratory Rate 17 17 Blood Pressure Pulse Oximetry 93 Oxygen Delivery BiPAP Oxygen Flow Rate Fraction of Inspired Oxygen 10/02/24 04:00 10/02/24 04:00 10/02/24 04:00 Temperature 36.6 C Pulse Rate 57 L 46 L Respiratory Rate 18 Blood Pressure 145/89 H Pulse Oximetry 93 93 Oxygen Delivery BiPAP Oxygen Flow Rate Fraction of Inspired Oxygen 40 10/02/24 04:09 10/02/24 06:00 10/02/24 07:40 Temperature Pulse Rate 55 L 45 L Respiratory Rate 18 Blood Pressure Pulse Oximetry 93 94 Oxygen Delivery BiPAP High Flow Nasal Cannula Oxygen Flow Rate 6 Fraction of Inspired Oxygen 10/02/24 07:40 10/02/24 07:57 10/02/24 08:00 Temperature 36.6 C Pulse Rate 52 L 54 L 55 L Respiratory Rate 20 20 22 H Blood Pressure 143/88 H Pulse Oximetry 100 Oxygen Delivery Oxygen Flow Rate Fraction of Inspired Oxygen 10/02/24 08:00 10/02/24 08:00 10/02/24 09:28 Temperature Pulse Rate 67 Respiratory Rate Blood Pressure Pulse Oximetry 91 88 L Oxygen Delivery High Flow Therapy with Na High Flow Nasal Cannula Oxygen Flow Rate 6 6 Fraction of Inspired Oxygen 10/02/24 10:00 10/02/24 12:00 10/02/24 12:00 Temperature 36.8 C Pulse Rate 58 L 59 L 60 Respiratory Rate 22 H Blood Pressure 119/70 Pulse Oximetry 93 Oxygen Delivery Oxygen Flow Rate Fraction of Inspired Oxygen Exam Const: General: cooperative, healthy appearing and comfortable Orientation/consciousness: oriented to person, oriented to place and oriented to time HENMT: Head: normal to inspection Ears: hearing grossly normal bilaterally Eyes: General: appearance normal, both eyes and all related structures Neck: Neck: normal visual inspection Chest: Chest palpation & inspection: normal inspection of the chest Resp: Effort & Inspection: normal respiratory effort and able to speak in complete sentences Auscultation: no crackles, no rales, no rhonchi, no wheezes and lung sounds not diminished Other: Lungs clear to auscultation Cardio: Jugular venous distension: no JVD GI: Inspection: normal to inspection GI Palp: No abdominal tenderness Skin: General skin exam: normal color Neuro: General: oriented to person, oriented to place and oriented to time Extrem: General: normal to inspection and no edema Psych: Appearance: grossly normal Results Laboratory Findings 10/02/24 04:12 10/02/24 04:12 ABG, PT/INR, D-dimer: ABG ABG pH 7.416 (7.350-7.450) 09/29/24 20:04 ABG pCO2 39.8 mmHg (35.0-45.0) 09/29/24 20:04 ABG pO2 71.5 mmHg (80.0-100.0) L 09/29/24 20:04 ABG O2 Saturation 94.6 % (95.0-100.0) L 09/29/24 20:04 PT/INR, D-dimer PT 14.3 Seconds (11.1-14.7) 09/29/24 13:55 INR 1.1 09/29/24 13:55 Abnormal lab findings: Abnormal Labs 09/29/24 09/29/24 09/29/24 13:49 13:55 16:00 WBC RBC 4.52 L MCHC Plt Count 118 L Lymph % (Auto) 17.9 L [place] % (Auto) 10.7 H [place] # (Auto) 0.9 H Neutrophils % (Manual) Lymphocytes % (Manual) Monocytes % (Manual) Abs Neuts (Manual) Abs Lymphs (Manual) Absolute Eos (Manual) ABG pH 7.455 H ABG pO2 48.3 L* ABG HCO3 30.3 H ABG O2 Saturation 85.8 L* Oxyhemoglobin 83.9 L* Reduced Hemoglobin 13.8 H Sodium 134 L Chloride 95 L Carbon Dioxide 32 H BUN Creatinine 0.55 L Glucose Calcium 8.2 L NT-Pro-B Natriuret Pep 170 H Urine Protein 1+ H Urine Ketones 1+ H Influenza A (RT-PCR) Positive A 09/29/24 09/30/24 10/01/24 20:04 04:08 10:21 WBC RBC 4.53 L 4.52 L MCHC 31.7 L Plt Count 107 L 136 L Lymph % (Auto) [place] % (Auto) 8.6 H [place] # (Auto) Neutrophils % (Manual) 79 H Lymphocytes % (Manual) 9 L Monocytes % (Manual) Abs Neuts (Manual) 7.82 H Abs Lymphs (Manual) 0.82 L Absolute Eos (Manual) 0.00 L ABG pH ABG pO2 71.5 L ABG HCO3 ABG O2 Saturation 94.6 L Oxyhemoglobin Reduced Hemoglobin Sodium 134 L Chloride Carbon Dioxide BUN Creatinine 0.53 L Glucose 113 H Calcium 8.1 L NT-Pro-B Natriuret Pep Urine Protein Urine Ketones Influenza A (RT-PCR) 10/01/24 10/02/24 10:22 04:12 WBC 10.7 H RBC 4.40 L MCHC Plt Count 143 L Lymph % (Auto) [place] % (Auto) [place] # (Auto) Neutrophils % (Manual) 82 H Lymphocytes % (Manual) 15.0 L Monocytes % (Manual) 1 L Abs Neuts (Manual) 8.98 H Abs Lymphs (Manual) Absolute Eos (Manual) ABG pH ABG pO2 ABG HCO3 ABG O2 Saturation Oxyhemoglobin Reduced Hemoglobin Sodium 135 L 135 L Chloride 97 L Carbon Dioxide 31 H BUN 22 H 24 H Creatinine 0.60 L 0.53 L Glucose 246 H 144 H Calcium 8.1 L 8.2 L NT-Pro-B Natriuret Pep Urine Protein Urine Ketones Influenza A (RT-PCR) Diagnostic Findings Additional studies: ITS Impressions Chest X-Ray 09/29/24 14:17 IMPRESSION: 1. Mild increased interstitial pattern in the bilateral lower lung zones which could represent mild pulmonary edema or pneumonia. Chest CTA 10/02/24 14:45
[2024-10-03] VITALS (23 sets, daily range): BP systolic 99–139; BP diastolic 73–90; PULSE 46–70; RESP 14–24; TEMP 36.6–37.2; O2SAT 85–96
[2024-10-03 07:19] LABS: Basophils Percent Auto 0.2 % (0.2-1.2); Eosinophils Absolute Auto 0.1 K/mm3 (0-0.3); Eosinophils Percent Auto 0.7 % (0-4.4); Hemoglobin 14.3 g/dL (14.0-18.0); Immature Granulocyte Absolute 0.06 K/mm3 (0.00-0.031); Immature Granulocyte Percent A 0.6 % (0-0.5); Lymphocytes Absolute Auto 3.55 K/mm3 (0.9-3.2); Lymphocytes Percent Auto 36.3 % (18.3-44.2); Mean Corpuscular HGB Conc 31.8 g/dl (32-36); Mean Corpuscular Hemoglobin 31.4 pg (26-34); Mean Corpuscular Volume 98.9 fl (80-100); Mean Platelet Volume 9.1 fl (7.4-10.4); Monocytes Absolute Auto 0.8 K/mm3 (0.1-0.6); Neutrophils Absolute Auto 5.3 K/mm3 (1.3-6.7); Neutrophils Percent Auto 54.2 % (45.5-73.1); Platelet Count Result 148 k/mm3 (150-375); Red Blood Count 4.55 M/mm3 (4.6-6.20); White Blood Count 9.8 K/mm3 (4.5-10.0)
[2024-10-03 07:27] LABS: Anion Gap 5 mmol/L (4-12); Blood Urea Nitrogen 20 mg/dL (9-20); Calcium 8.1 mg/dL (8.4-10.2); Carbon Dioxide 31 mmol/L (22-30); Chloride 100 mmol/L (98-107); Estimated CRCL calculation 111 ml/min; Estimated Glomerular Filt Rate > 60; Glucose 84 mg/dL (65-110); Potassium 4.2 mmol/L (3.4-5.0); Sodium 136 mmol/L (137-145)
[2024-10-03] MEDS: IPRATROPIUM 0.5 MG/ALBUTEROL SULFATE 2.5 MG AMPUL.NEB 3 ML INHALATION ×3 (08:19→20:31)
[2024-10-03] MEDS: ENOXAPARIN 40 MG/0.4 ML SYRINGE SUB-Q (10:36)
[2024-10-03] MEDS: SALINE 0.65% NAS SOLN 44 ML BTL 1 SPRAY NASAL (10:36)
[2024-10-03] MEDS: guaiFENesin 12 HR 600 MG TABCR PO ×2 (10:36→22:14)
[2024-10-03] MEDS: MULTIVITAMINS THERAPEUTIC TAB (*BKC) 1 TABLET PO (10:36)
[2024-10-03] MEDS: CITALOPRAM HYDROBROMIDE 20 MG TABLET PO (10:37)
[2024-10-03] MEDS: PHENYTOIN SODIUM 100 MG EXTENDED RELEASE CAP 200 MG PO ×2 (10:37→22:14)
[2024-10-03] MEDS: FUROSEMIDE 20 MG TABLET PO (10:37)
[2024-10-03] MEDS: FOLIC ACID 0.4 MG TABLET 0.8 MG PO (10:37)
[2024-10-03] MEDS: AZITHROMYCIN 500 MG/NS 250 ML 500 MG/250 ML BAG 250 MG IVPB (12:57)
--- NOTE | 2024-10-03 14:15 | P.PNIM_ITS ---
Progress Note: A&P Assessment and Plan (1) Influenza A: Code(s): J10.1 - Influenza due to other identified influenza virus with other respiratory manifestations Status: Acute (2) COPD (chronic obstructive pulmonary disease): Qualifiers: COPD type: COPD with acute exacerbation Qualified Code(s): J44.1 - Chronic obstructive pulmonary disease with (acute) exacerbation Code(s): J44.9 - Chronic obstructive pulmonary disease, unspecified Status: Acute (3) TAMAR (obstructive sleep apnea): Code(s): G47.33 - Obstructive sleep apnea (adult) (pediatric) Status: Chronic (4) Tobacco use: Code(s): Z72.0 - Tobacco use Status: Chronic (5) Hypoxia: Code(s): R09.02 - Hypoxemia Status: Acute (6) Community acquired pneumonia: Qualifiers: Laterality: unspecified laterality Qualified Code(s): J18.9 - Pneumonia, unspecified organism Code(s): J18.9 - Pneumonia, unspecified organism Status: Acute Plan # Acute respiratory failure with hypoxemia Likely resulting from pneumonia and fluid overload ABG showed pH 7.455, pCO2 44.1, pO2 48.3, HCO3 30.3, O2 sat 85.8 % on 4L NC. place on BiPAP for work of breathing, ABG with no hypercarbia baseline supplemental O2 need: 8L w/CPAP at night time. Non at rest and uses intermittently with exertion Currently at 5 L at rest. Pulmonary consultation switched to CPAP at night cta negaitve for pe but shows basal pneumonia # Community acquired pneumonia: Chest x-ray suggests bilateral lobe pneumonia and med pulmonary edema Possible resulting from bacteriuria infection superimposed influenza a effect Continue azithromycin ceftriaxone not on tamiflu as out of window # Influenza A: - tested positive for influenza A on 09/29, symptom onset was 5 days ago - out of window for Tamiflu 75 mg - supportive care, see above - monitor WBC/CBC # Fluid overload, Possible acute on chronic diastolic heart failure Crackles bilateral base 4/ Lasix 40 mg IV push once. Continue oral Lasix Echocardiogram April 06, 2022 showed normal EF Repeat echocardiogram 1. Left ventricular chamber dimension is normal. 2. Left ventricular systolic function is normal, estimated at 60-65%. 3. The left ventricular diastolic function is normal. 4. E/e' 7 is not elevated. provide Lasix 40 mg IV push once again 4/3 On oral Lasix. Does not appear fluid overloaded currently # COPD (chronic obstructive pulmonary disease): Young hao Received Solu-Medrol 125-in the ED, continue 60 mg IV q.6 Continue ceftriaxone and azithromycin on 09/29 Switched to oral steroid. Pulmonary consultation # Sinus bradycardia EKG shows sinus rhythm, heart rate 60 upon arrival, Repeat EKG : Sinus bradycardia 55, Place patient telemetry monitoring Patient is asymptomatic # TAMAR (obstructive sleep apnea): continue home CPAP # seizure disorder on phenytoin line # anxiety/depression: On citalopram # Tobacco use: - 1 PPD x20+ years - denied need for nicotine patch # DVT prophylaxis: Lovenox # code status: Full code Subjective Date/time seen: 10/03/24 14:15 Interval history: No overnight events. On 5 L oxygen. apnea link last night with 7 L bleed in Review of Systems Review of Systems: All systems reviewed & are unremarkable except as noted in HPI and below Exam Narrative: GENERAL: Pleasant, in no acute distress. Well-nourished. - EYES: EOMI. Anicteric. - HENT: Moist mucous membranes. - LUNGS: Coarse breath sound bilaterall y, no wheezes or crackles, basal rhonchi noted - CARDIOVASCULAR: Regular rate and rhyth m. No murmur. No JVD. - ABDOMEN: Soft, non-tender and non-dist ended. No palpable masses. - EXTREMITIES: No edema. Peripheral puls es 2+. Non-tender. - NEUROLOGIC: No focal neurological defi cits. CN II-XII grossly intact. - PSYCHIATRIC: Awake, Alert and oriented x 3. Appropriate mood and affect. - SKIN: No rashes or lesions. Warm. - LYMPH: No cervical lymphadenopathy. Objective Data Vital Signs Vital Signs: Vital Signs - 24 hr 10/02/24 14:33 10/02/24 14:43 10/02/24 15:55 Temperature Pulse Rate 55 L 55 L Respiratory Rate 20 20 Blood Pressure Pulse Oximetry 90 Oxygen Delivery High Flow Therapy with Na Oxygen Flow Rate 4 10/02/24 16:00 10/02/24 16:00 10/02/24 18:00 Temperature 97.5 F L Pulse Rate 58 L 55 L 57 L Respiratory Rate 18 Blood Pressure 109/66 Pulse Oximetry 92 Oxygen Delivery Oxygen Flow Rate 10/02/24 18:00 10/02/24 19:06 10/02/24 20:00 Temperature 97.7 F Pulse Rate 58 L 56 L Respiratory Rate 20 Blood Pressure 110/59 L Pulse Oximetry 91 93 Oxygen Delivery High Flow Therapy with Na Oxygen Flow Rate 5 10/02/24 20:36 10/02/24 20:36 10/02/24 20:40 Temperature Pulse Rate 56 L Respiratory Rate 20 Blood Pressure Pulse Oximetry 91 92 Oxygen Delivery High Flow Nasal Cannula High Flow Therapy with Na Oxygen Flow Rate 5 4 10/02/24 20:48 10/02/24 22:00 10/02/24 22:53 Temperature Pulse Rate 55 L 54 L 65 Respiratory Rate 20 Blood Pressure Pulse Oximetry 93 Oxygen Delivery CPAP Oxygen Flow Rate 10/02/24 22:53 10/03/24 00:00 10/03/24 00:00 Temperature 98.9 F Pulse Rate 52 L 49 L Respiratory Rate 18 Blood Pressure 103/85 Pulse Oximetry 93 92 Oxygen Delivery CPAP Oxygen Flow Rate 7 10/03/24 00:15 10/03/24 02:00 10/03/24 04:00 Temperature 97.8 F Pulse Rate 50 L 55 L Respiratory Rate 18 Blood Pressure 139/90 Pulse Oximetry 93 94 Oxygen Delivery BiPAP Oxygen Flow Rate 7 10/03/24 04:00 10/03/24 04:40 10/03/24 06:00 Temperature Pulse Rate 47 L 46 L Respiratory Rate Blood Pressure Pulse Oximetry 91 Oxygen Delivery BiPAP Oxygen Flow Rate 7 10/03/24 08:00 10/03/24 08:19 10/03/24 08:19 Temperature 98.6 F Pulse Rate 63 62 Respiratory Rate 18 24 H Blood Pressure 99/79 L Pulse Oximetry 89 L 90 Oxygen Delivery High Flow Nasal Cannula Oxygen Flow Rate 5 10/03/24 08:35 10/03/24 12:00 10/03/24 13:40 Temperature 98.9 F Pulse Rate 60 55 L 67 Respiratory Rate 24 H 14 18 Blood Pressure 123/73 Pulse Oximetry 96 Oxygen Delivery Oxygen Flow Rate 10/03/24 13:49 Temperature Pulse Rate 63 Respiratory Rate 18 Blood Pressure Pulse Oximetry Oxygen Delivery Oxygen Flow Rate Intake/Output Intake/Output: Intake & Output 09/30/24 10/01/24 10/02/24 10/03/24 23:59 23:59 23:59 23:59 Intake Total 2180 2170 2820 1220 Output Total 2350 3510 4300 700 Balance -170 -1340 -1480 520 Meds/Results Medications: Active Medications Generic Name Dose Route Start Last Admin Trade Name Freq PRN Reason Stop Dose Admin Acetaminophen 650 mg 09/29/24 15:15 Acetaminophen 325 Mg Tablet PO Q6H PRN Mild Pain (1-3) or Fever Albuterol/Ipratropium 3 ml 09/29/24 20:00 10/03/24 13:39 Ipratropium 0.5 Mg/Albuterol Sulfate 2.5 Mg Ampul.Neb 3 Ml INHALATION 3 ml Q6HRT HAO Administration Benzocaine 1 lozenge 09/29/24 15:15 Benzocaine/Menthol (*Bkc) 18 Ea Lozenge PO PRN PRN Sore Throat Benzonatate 100 mg 09/29/24 15:15 Benzonatate 100 Mg Capsule PO TID PRN Cough Citalopram Hydrobromide 20 mg 09/30/24 09:00 10/03/24 10:37 Citalopram Hydrobromide 20 Mg Tablet PO 20 mg DAILY HAO Administration Diphenoxylate HCl/Atropine 1 tablet 09/29/24 20:35 09/30/24 20:34 Diphenoxylate/Atropine (*Crx) 2.5 Mg Tablet PO 1 tablet PRN PRN Administration Diarrhea Enoxaparin Sodium 40 mg 09/30/24 09:00 10/03/24 10:36 Enoxaparin 40 Mg/0.4 Ml Syringe SUB-Q 40 mg DAILY HAO Administration Folic Acid 0.8 mg 09/30/24 09:00 10/03/24 10:37 Folic Acid 0.4 Mg Tablet PO 0.8 mg QAM HAO Administration Furosemide 20 mg 09/30/24 09:00 10/03/24 10:37 Furosemide 20 Mg Tablet PO 20 mg QAM HAO Administration Guaifenesin 600 mg 09/29/24 21:00 10/03/24 10:36 Guaifenesin 12 Hr 600 Mg Tabcr PO 600 mg Q12HR HAO Administration Ceftriaxone Sodium 1 gm in 50 mls @ 100 mls/hr 09/30/24 12:00 10/03/24 12:57 Rocephin 1 Gm/Ns 50 Ml IVPB 100 mls/hr Q24H HOA Administration Azithromycin 500 mg in 250 mls @ 250 mls/hr 09/30/24 12:00 10/03/24 12:57 Zithromax IVPB 250 mls/hr Q24H HAO Administration Multivitamins Therapeutic 1 tablet 09/30/24 09:00 10/03/24 10:36 Multivitamins Therapeutic Tab (*Bkc) PO 1 tablet DAILY HAO Administration Phenytoin Sodium 200 mg 09/30/24 09:20 10/03/24 10:37 Phenytoin Sodium 100 Mg Extended Release Cap PO 200 mg Q12HR HAO Administration Sodium Chloride 1 spray 10/02/24 10:28 10/03/24 10:36 Saline 0.65% Edwin Soln 44 Ml Btl NASAL 1 spray Q6HR PRN Administration Congestion Radiology Results: ITS Impressions Chest X-Ray 09/29/24 14:17 IMPRESSION: 1. Mild increased interstitial pattern in the bilateral lower lung zones which could represent mild pulmonary edema or pneumonia. Chest CTA 10/02/24 14:45 IMPRESSION: 1. No evidence for pulmonary embolism. 2: Lower lobe consolidation bilaterally with areas of groundglass opacification in both lungs. Differential diagnosis includes pneumonia and/or atelectasis. 3: Mediastinal and bilateral hilar lymphadenopathy. Differential diagnosis i ncludes reactive lymphadenopathy versus metastatic disease. Correlate for history of malignancy. Labs Labs: Laboratory Results - last 24 hr 10/03/24 07:10 WBC 9.8 RBC 4.55 L Hgb 14.3 Hct 45.0 MCV 98.9 MCH 31.4 MCHC 31.8 L RDW 14.0 Plt Count 148 L MPV 9.1 Immature Gran % (Auto) 0.6 H Neut % (Auto) 54.2 Lymph % (Auto) 36.3 [place] % (Auto) 8.0 Eos % (Auto) 0.7 Baso % (Auto) 0.2 Lymph # (Auto) 3.55 H [place] # (Auto) 0.8 H Eos # (Auto) 0.1 Baso # (Auto) 0.0 Abs Immat Gran (auto) 0.06 H Absolute Neuts (auto) 5.3 Absolute Nucleated RBC 0.000 Nucleated RBC % 0.0 Sodium 136 L Potassium 4.2 Chloride 100 Carbon Dioxide 31 H Anion Gap 5 BUN 20 Creatinine 0.64 L Estim Creat Clear Calc 111 Estimated GFR > 60 Glucose 84 Calcium 8.1 L
--- NOTE | 2024-10-03 17:45 | P.PNPL_ITS ---
Progress Note: A&P Assessment and Plan (1) Influenza A: Code(s): J10.1 - Influenza due to other identified influenza virus with other respiratory manifestations Status: Acute Assessment and Plan: Patient presented on 09/30/2023 with influenza A infection. He had symptoms for 5 days and was not treated with Tamiflu. He had worsening hypoxic respiratory failure and required BiPAP support for work of breathing. He was treated with Solu-Medrol 60 mg IV q.6 hours since admission. 10/03/2023: patient remained hypoxemic and Pulmonary was consulted. The patient tells me he is much improved since admission. He tells me he is 75% back to normal. His cough is completely resolved. He has no phlegm. Last night the patient wore Hospital BiPAP rate of 16, pressures 12/6 with 40% FiO2 last night. Patient is afebrile. White blood cell count 10.7, creatinine 0.53. yesterday is -1.3 L and since admission he is -2.4 L. weight is 102.9 kg with an admission weight of 104 kg. When I enter the room the patient was on 5 L nasal cannula with an ear pulse oximeter. I placed a hand pulse oximeter on him and the ear was reading 3 points lower than the hand. I decreased him to 4 L and his saturations were 93%. Solu-Medrol 60 q.6 discontinued after the morning dose. CT angiogram of the chest negative for pulmonary embolism, bilateral consolidations in both lung bases, mediastinal bilateral hilar lymphadenopathy. Plan: the patient has continued to improve. Patient had a CT scan today with bibasilar consolidations and is on day 4 ceftriaxone and azithromycin. Will continue ceftriaxone or an equivalent home antibiotic for 7 days and continue azithromycin for a total of 5 days. 10/03/24: he is feeling gradually better, has an Inogen POC at home; is has pulse flow O2 which may not be sufficient for exertion. Continuous flow may be needed. We will be able to determine when he parisi a Home O2 study before discharge. (2) COPD (chronic obstructive pulmonary disease): Qualifiers: COPD type: COPD with acute exacerbation Qualified Code(s): J44.1 - Chronic obstructive pulmonary disease with (acute) exacerbation Code(s): J44.9 - Chronic obstructive pulmonary disease, unspecified Status: Acute Assessment and Plan: GOLD grade 3 group B COPD Patient smoke 1 pack per day from age 13 to 33 and then quit for 18 years and recently has been smoking 1.25 packs per day until admission. Total pack years 42. Alpha 1 anti trypsin genotype MM. PFT 11/16/22 - Moderately severe obstructive airway disease with evidence of air trapping and no response to bronchodilators on this testing. Severely reduced lung diffusion capacity. Home O2 Eval 11/16/22 ? requires 4L O2 with exertion, none at rest. Patient has obstructive sleep apnea and uses CPAP 16 with 6.5 L bleed in at night. Recently the patient has had worsening hypoxemic respiratory failure at home with saturations 89-91 at rest on room air. With activities saturations decreased into the 60s on room air. Admitted on 09/29/2024 with an ABG on 4 L nasal cannula 7.46/44/48. There is no evidence of hypercarbic respiratory failure. 10/02/24: Currently the patient says he is 75% back to his normal. His cough is resolved. He has no phlegm. Currently is on 4 L at rest with saturations 93%. Plan: I will continue DuoNebs q.6 hours. Since he was on appropriate doses of beta agonist and muscarinic antagonists I will discontinue his Anoro Ellipta. He has no wheezes with influenza a infection and I have discontinued his steroids. Continue guaifenesin 600 mg p.o. q.12 hours. Goal saturation 90- 94%, Smoking cessation counseling was provided and the patient tells me that he has quit smoking. 10/03/24: His cough is better, he is speaking in low sentences, getting closer to baseline. Will need Home O2 study before disharge. (3) TAMAR (obstructive sleep apnea): Code(s): G47.33 - Obstructive sleep apnea (adult) (pediatric) Status: Chronic Assessment and Plan: PSG 01/29/20 - severe sleep apnea, AHI 42.1. patient uses 6.5 L bleed in Last download compliance through [employer] from 02/06/2024 through 05/05/2024. Patient is on CPAP 16 with EPR level 2, usage days greater than or equal to 4 hours was 99%. Average usage on days used is 9 hours and 41 minutes. AHI 0.3. Apnea index 0.1. Hypopnea index 0.2, central apnea index 0.0. Median leak 2.6. Ninety-fifth percentile leak 20.7. Maximum leak 28.6. I interpret this d ownload as excellent compliance, adequate pressures and moderate leak. 10/02/24: The patient tells me he has improved and thinks he would be able to tolerate his CPAP with 7 L bleed in tonight. Plan: Will have patient wears home CPAP with 7 L bleed in and perform an overnight oximetry with these settings. 10/03/24: Overnight oximetry with CPAP 16 and 7 L O2 = lowest sat 87%, perfect. He spent no significant time below 88%. Subjective Date/time seen: 10/03/24 17:45 Interval history: 10/02/24 New Pulmonary consult Chief complaint: Influenza/Pneumonia/COPD/Hypoxia Narrative: 10/02/2024: This is a new pulmonary consult for influenza a with hypoxic respiratory failure. 69-year-old male with a history of GOLD grade 3 group B COPD on no oxygen at rest and 4 L with activity, TAMAR on CPAP 16 with 6.5 L bleed in, GERD and seizures. Patient is followed in the [facility]monary [facility] in last seen on 05/11/2024. This is a copy of the note 3 month follow-up regarding TAMAR on CPAP and COPD on oxygen. PCP Dr. Hai Ortiz. Hx: TAMAR, COPD, seizures He reports stable COPD symptoms, no ER visits. ARRINGTON occurs with stairs but w/o ADL interference. Cough is minimal with clear sputum in the morning. Denies wheezing, chest pains/tightness, fever, hemoptysis, or nighttime breathing issues. He takes Anoro daily. Has albuterol that he rarely uses. Has a nebulzier as well that he never uses; would benefit from new albuterol neb vials. He has a POC that he uses with activity 4L. He is a current smoker 3/4ppd. He is compliant with CPAP nightly and has O2 bleed in at 6.5L. Sleep overall is good and daytime function is good. DME IVR. Continue Anoro 1 inhalation a day, albuterol inhaler nebulizer p.r.n., requires 4 L with activity none at rest. 6.5 L bleed in with CPAP. On CPAP 04ovC2O w/ EPR 2 w/ 6.5L O2 bleed-in. Download shows excellent compliance, 100% nights used. Avg usage 9.7hrs/night. AHI 0.3. Follow-up in 6 months. download compliance through [employer] from 02/06/2024 through 05/05/2024. Patient is on CPAP 16 with EPR level 2, usage days greater than or equal to 4 hours was 99%. Average usage on days used is 9 hours and 41 minutes. AHI 0.3. Apnea index 0.1. Hypopnea index 0.2, central apnea index 0.0. Median leak 2.6. Ninety-fifth percentile leak 20.7. Maximum leak 28.6. I interpret this download as excellent compliance, adequate pressures and moderate leak. at baseline the patient coughs 3-4 times in the morning and expectorates 1-2 times in the morning. At home he knows wears no oxygen at rest with home saturations 89-91. With activity around the house he wears no oxygen and when he goes up and down the stairs his saturations are in the 60s. When he walks to the mailbox is saturations were 75-80. He sits down and rests and his saturations returned. When he goes out to the store he wears a portable oxygen concentrator on 4 but does not measure his saturations. 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 09/29/2024 patient presented to the emergency department with worsening shortness of breath over the last week, fever, hypoxemia. Blood pressure 110/70, heart rate 95, saturations on 6 L nasal cannula oxygen 88%. wheezing In the ED but not on the H and from the hospitalist. White blood cell count 8.1, creatinine 0.55, serum bicarb 32, eosinophils 0%. Lactic acid 0.8. BNP 170. Influenza a RT PCR study positive. ABG on 4 L nasal cannula 7.46/44/48. Chest x-ray with bibasilar infiltrates. He received 2 breathing treatments and had increased work of breathing and was started on BiPAP 12/6 with 36% FiO2 for increased work of breathing. Repeat blood gas 6 hours later 7.42/ 40/72. He was given IV steroids. empirically started on ceftriaxone and azithromycin. not given Tamiflu as it was felt he was outside the window for treatment. Given Lasix 40 IV for fluid overload. 09/30/2024: 6 L nasal cannula saturation 95%. On Solu-Medrol 60 q.6. 10/01/2024: 7 L nasal cannula saturations 92%. On Solu-Medrol 60 q.6. 10/02/2024: patient remained hypoxemic and Pulmonary was consulted. The patient tells me he is much improved since admission. He tells me he is 75% back to normal. His cough is completely resolved. He has no phlegm. Last night the patient wore Hospital BiPAP rate of 16, pressures 12/6 with 40% FiO2 last night. Patient is afebrile. White blood cell count 10.7, creatinine 0.53. yesterday is -1.3 L and since admission he is -2.4 L. weight is 102.9 kg with an admission weight of 104 kg. When I enter the room the patient was on 5 L nasal cannula with an ear pulse oximeter. I placed a hand pulse oximeter on him and the ear was reading 3 points lower than the hand. I decreased him to 4 L and his saturations were 93%. Solu-Medrol 60 q.6 discontinued after the morning dose. CT angiogram of the chest negative for pulmonary embolism, bilateral consolidations in both lung bases, mediastinal bilateral hilar lymphadenopathy. 10/03/2024: He is sitting up in bed; visitors include Cory and a teen girl. He feels better. Wearing O2 nasal cannula 6 L, sat is 89-92%. Still not all the way to his baseline. Gradually improved. His son will be back tomorrow afternoon. DATA: 10/02/24: EXAMINATION: CTA chest PE protocol DATE: 10/02/2024 14:45 CDT INDICATION: Hypoxia TECHNIQUE: Computed tomographic angiography (CTA) of the chest was performed with 100 mL Omnipaque-350 intravenous contrast. The dose-length product was 744.72 mGy-cm. Maximum intensity projection 3D-reconstructions of the aorta and other arteries were constructed by the technologist on a separate workstation. Automated exposure control and iterative reconstruction technique were employed. COMPARISON: CT dated 05/19/2024. FINDINGS: Enlarged pulmonary arteries consistent with pulmonary hypertension. Study is technically adequate without evidence for pulmonary embolism. Borderline heart size. There is mediastinal and hilar lymphadenopathy. No significant pleural or pericardial effusion. There is emphysema. No endobronchial lesions. There is bilateral lower lobe airspace consolidation with groundglass opacification of both lungs. No endobronchial lesions. No pneumothorax. There are multiple compression fractures of the thoracic spine, unchanged, chronic. IMPRESSION: 1. No evidence for pulmonary embolism. 2: Lower lobe consolidation bilaterally with areas of groundglass opacification in both lungs. Differential diagnosis includes pneumonia and/or atelectasis. 3: Mediastinal and bilateral hilar lymphadenopathy. Differential diagnosis includes reactive lymphadenopathy versus metastatic disease. Correlate for history of malignancy. 09/30/24: Echo Summary 1. Left ventricular chamber dimension is normal. 2. Left ventricular systolic function is normal, estimated at 60-65%. 3. The left ventricular diastolic function is normal. 4. E/e' 7 is not elevated. Right Ventricle Right ventricular systolic function is normal and with normal TAPSE 2.1 cm. Right ventricular chamber dimension is mildly enlarged. Right Atria Right atrial chamber dimension is normal. no PASP provided 05/19/2024: EXAMINATION:CT lung screening DATE: 05/19/2024 14:39 INDICATION: Personal history of nicotine dependence. Current smoker with 49 pack year history. TECHNIQUE: Computed tomography (CT) of the chest was performed without intravenous contrast. Automated exposure control and iterative reconstruction technique were employed. The dose-length product (DLP) was 245.35 mGy-cm. COMPARISON: Chest CT 04/08/2023, 04/03/22 FINDINGS: There is a 10 mm nodule in right lower lobe, stable from 04/03/22. There is peripheral septal thickening in the lungs associated with groundglass opacities. There is mild emphysema. No pleural effusion. The heart size is normal. There are coronary artery calcifications. No pericardial effusion. The central pulmonary arteries are enlarged, consistent with pulmonary arterial hypertension. There is chronic fat stranding at the root of the small bowel mesentery. There is mild thoracic spondylosis. There are multiple chronic compression fractures in the spine. IMPRESSION: 1. Lung-RADS category 2: Benign appearance or behavior. Continue annual screening with noncontrast low-dose chest CT in 12 months. RAST 09/22/21 - mild +dust, + moderate [place] grass, mild +Ragweed, IgE 149 Alpha 1 serum 169; PIMM IgG 1367 TB GOLD neg PFT 07/15/19 - moderate airflow obstruction. FEV1 53% FEV1/FVC 61% PFT 11/16/22 - Moderately severe obstructive airway disease with evidence of air trapping and no response to bronchodilators on this testing. Severely reduced lung diffusion capacity. Home O2 Eval 11/16/22 ? requires 4L O2 with exertion, none at rest. LDCT 04/03/22 - 12mm RLL with recommendation for a CT in [address] 10/12/22 ? stable 12mm noncalcified RLL pulmonary nodules. Mild ggo vs chronic scarring. F/u Chest CT in [address] 05/09/23 @ [facility] ? unchanged 1.1cm RLL nodule. No adenopathy. 3 month f/u CT vs PET-CT recommended. Echo 06/03/20 ? EF 60-65%. RVSP not calculated. Echo 04/06/22 - EF 60-65%, RVSP not calculated. PAP Titration study 12/28/21 - recommended [id number] w/ 6L O2 bleed-in PSG 01/29/20 - severe sleep apnea, AHI 42.1. CPAP 02/18/2020- recommend CPAP 12 w/ 3L O2. Review of Systems Review of Systems: All systems reviewed & are unremarkable except as noted in HPI and below Exam Narrative: GEN: Alert, oriented, not in distress. Wearing O2, checks his saturation with his own oximeter, compares it to hospital reading. HEENT: pupils are equal, EOMI, symmetrical face; oral membranes moist NECK: Trachea is midline CHEST: Equal air entry, symmetric excursion, few crackles right base, scattered wheezes on expiration CV: Regular S1S2 no m/g/r ABD : (+) bowel sounds Extremities : no clubbing, cyanosis, or edema PSYCH: normal thought and speech Objective Data Vital Signs Vital Signs: Vital Signs - 24 hr 10/02/24 18:00 10/02/24 18:00 10/02/24 19:06 Temperature 36.5 C Pulse Rate 57 L 58 L Respiratory Rate 20 Blood Pressure 110/59 L Pulse Oximetry 91 93 Oxygen Delivery High Flow Therapy with Na Oxygen Flow Rate 5 10/02/24 20:00 10/02/24 20:36 10/02/24 20:36 Temperature Pulse Rate 56 L 56 L Respiratory Rate 20 Blood Pressure Pulse Oximetry 91 Oxygen Delivery High Flow Nasal Cannula Oxygen Flow Rate 5 10/02/24 20:40 10/02/24 20:48 10/02/24 22:00 Temperature Pulse Rate 55 L 54 L Respiratory Rate 20 Blood Pressure Pulse Oximetry 92 Oxygen Delivery High Flow Therapy with Na Oxygen Flow Rate 4 10/02/24 22:53 10/02/24 22:53 10/03/24 00:00 Temperature 37.2 C Pulse Rate 65 52 L Respiratory Rate 18 Blood Pressure 103/85 Pulse Oximetry 93 93 92 Oxygen Delivery CPAP CPAP Oxygen Flow Rate 7 10/03/24 00:00 10/03/24 00:15 10/03/24 02:00 Temperature Pulse Rate 49 L 50 L Respiratory Rate Blood Pressure Pulse Oximetry 93 Oxygen Delivery BiPAP Oxygen Flow Rate 7 10/03/24 04:00 10/03/24 04:00 10/03/24 04:40 Temperature 36.6 C Pulse Rate 55 L 47 L Respiratory Rate 18 Blood Pressure 139/90 Pulse Oximetry 94 91 Oxygen Delivery BiPAP Oxygen Flow Rate 7 10/03/24 06:00 10/03/24 08:00 10/03/24 08:00 Temperature 37.0 C Pulse Rate 46 L 63 59 L Respiratory Rate 18 Blood Pressure 99/79 L Pulse Oximetry 89 L Oxygen Delivery Oxygen Flow Rate 10/03/24 08:00 10/03/24 08:19 10/03/24 08:19 Temperature Pulse Rate 62 Respiratory Rate 24 H Blood Pressure Pulse Oximetry 91 90 Oxygen Delivery High Flow Therapy with Na High Flow Nasal Cannula Oxygen Flow Rate 5 5 10/03/24 08:35 10/03/24 10:00 10/03/24 12:00 Temperature 37.2 C Pulse Rate 60 65 55 L Respiratory Rate 24 H 14 Blood Pressure 123/73 Pulse Oximetry 96 Oxygen Delivery Oxygen Flow Rate 10/03/24 12:00 10/03/24 12:00 10/03/24 13:40 Temperature Pulse Rate 59 L 67 Respiratory Rate 18 Blood Pressure Pulse Oximetry 90 Oxygen Delivery High Flow Therapy with Na Oxygen Flow Rate 4 10/03/24 13:49 10/03/24 14:00 10/03/24 15:53 Temperature 36.9 C Pulse Rate 63 67 55 L Respiratory Rate 18 14 Blood Pressure 115/76 Pulse Oximetry 96 Oxygen Delivery Oxygen Flow Rate 10/03/24 16:00 10/03/24 16:00 Temperature Pulse Rate 60 Respiratory Rate Blood Pressure Pulse Oximetry 93 Oxygen Delivery High Flow Therapy with Na Oxygen Flow Rate 6 Intake/Output Intake/Output: Intake & Output 09/30/24 10/01/24 10/02/24 10/03/24 23:59 23:59 23:59 23:59 Intake Total 2180 2170 2820 1220 Output Total 2350 3510 4300 700 Balance -170 -0460 -1480 520 Meds/Results Medications: Active Medications Generic Name Dose Route Start Last Admin Trade Name Freq PRN Reason Stop Dose Admin Acetaminophen 650 mg 09/29/24 15:15 Acetaminophen 325 Mg Tablet PO Q6H PRN Mild Pain (1-3) or Fever Albuterol/Ipratropium 3 ml 09/29/24 20:00 10/03/24 13:39 Ipratropium 0.5 Mg/Albuterol Sulfate 2.5 Mg Ampul.Neb 3 Ml INHALATION 3 ml Q6HRT PAULY Administration Benzocaine 1 lozenge 09/29/24 15:15 Benzocaine/Menthol (*Bkc) 18 Ea Lozenge PO PRN PRN Sore Throat Benzonatate 100 mg 09/29/24 15:15 Benzonatate 100 Mg Capsule PO TID PRN Cough Citalopram Hydrobromide 20 mg 09/30/24 09:00 10/03/24 10:37 Citalopram Hydrobromide 20 Mg Tablet PO 20 mg DAILY PAULY Administration Diphenoxylate HCl/Atropine 1 tablet 09/29/24 20:35 09/30/24 20:34 Diphenoxylate/Atropine (*Crx) 2.5 Mg Tablet PO 1 tablet PRN PRN Administration Diarrhea Enoxaparin Sodium 40 mg 09/30/24 09:00 10/03/24 10:36 Enoxaparin 40 Mg/0.4 Ml Syringe SUB-Q 40 mg DAILY PAULY Administration Folic Acid 0.8 mg 09/30/24 09:00 10/03/24 10:37 Folic Acid 0.4 Mg Tablet PO 0.8 mg QAM PAULY Administration Furosemide 20 mg 09/30/24 09:00 10/03/24 10:37 Furosemide 20 Mg Tablet PO 20 mg QAM PAULY Administration Guaifenesin 600 mg 09/29/24 21:00 10/03/24 10:36 Guaifenesin 12 Hr 600 Mg Tabcr PO 600 mg Q12HR PAULY Administration Ceftriaxone Sodium 1 gm in 50 mls @ 100 mls/hr 09/30/24 12:00 10/03/24 12:57 Rocephin 1 Gm/Ns 50 Ml IVPB 100 mls/hr Q24H PAULY Administration Azithromycin 500 mg in 250 mls @ 250 mls/hr 09/30/24 12:00 10/03/24 12:57 Zithromax IVPB 250 mls/hr Q24H PAULY Administration Multivitamins Therapeutic 1 tablet 09/30/24 09:00 10/03/24 10:36 Multivitamins Therapeutic Tab (*Bkc) PO 1 tablet DAILY PAULY Administration Phenytoin Sodium 200 mg 09/30/24 09:20 10/03/24 10:37 Phenytoin Sodium 100 Mg Extended Release Cap PO 200 mg Q12HR PAULY Administration Sodium Chloride 1 spray 10/02/24 10:28 10/03/24 10:36 Saline 0.65% Edwin Soln 44 Ml Btl NASAL 1 spray Q6HR PRN Administration Congestion Radiology Results: ITS Impressions Chest X-Ray 09/29/24 14:17 IMPRESSION: 1. Mild increased interstitial pattern in the bilateral lower lung zones which could represent mild pulmonary edema or pneumonia. Chest CTA 10/02/24 14:45 IMPRESSION: 1. No evidence for pulmonary embolism. 2: Lower lobe consolidation bilaterally with areas of groundglass opacification in both lungs. Differential diagnosis includes pneumonia and/or atelectasis. 3: Mediastinal and bilateral hilar lymphadenopathy. Differential diagnosis includes reactive lymphadenopathy versus metastatic disease. Correlate for history of malignancy. Labs Labs: Laboratory Results - last 24 hr 10/03/24 07:10 WBC 9.8 RBC 4.55 L Hgb 14.3 Hct 45.0 MCV 98.9 MCH 31.4 MCHC 31.8 L RDW 14.0 Plt Count 148 L MPV 9.1 Immature Gran % (Auto) 0.6 H Neut % (Auto) 54.2 Lymph % (Auto) 36.3 Cat[place] % (Auto) 8.0 Eos % (Auto) 0.7 Baso % (Auto) 0.2 Lymph # (Auto) 3.55 H Cat[place] # (Auto) 0.8 H Eos # (Auto) 0.1 Baso # (Auto) 0.0 Abs Immat Gran (auto) 0.06 H Absolute Neuts (auto) 5.3 Absolute Nucleated RBC 0.000 Nucleated RBC % 0.0 Sodium 136 L Potassium 4.2 Chloride 100 Carbon Dioxide 31 H Anion Gap 5 BUN 20 Creatinine 0.64 L Estim Creat Clear Calc 111 Estimated GFR > 60 Glucose 84 Calcium 8.1 L
[2024-10-04] VITALS (27 sets, daily range): BP systolic 108–136; BP diastolic 52–86; PULSE 48–96; RESP 16–20; TEMP 36.4–37.2; O2SAT 90–99
[2024-10-04] MEDS: IPRATROPIUM 0.5 MG/ALBUTEROL SULFATE 2.5 MG AMPUL.NEB 3 ML INHALATION ×4 (02:15→20:13)
[2024-10-04] MEDS: FOLIC ACID 0.4 MG TABLET 0.8 MG PO (09:55)
[2024-10-04] MEDS: PHENYTOIN SODIUM 100 MG EXTENDED RELEASE CAP 200 MG PO ×2 (09:55→21:16)
[2024-10-04] MEDS: FUROSEMIDE 20 MG TABLET PO (09:55)
[2024-10-04] MEDS: MULTIVITAMINS THERAPEUTIC TAB (*BKC) 1 TABLET PO (09:56)
[2024-10-04] MEDS: guaiFENesin 12 HR 600 MG TABCR PO ×2 (09:56→21:16)
[2024-10-04] MEDS: CITALOPRAM HYDROBROMIDE 20 MG TABLET PO (09:56)
[2024-10-04] MEDS: ENOXAPARIN 40 MG/0.4 ML SYRINGE SUB-Q (09:56)
[2024-10-04] MEDS: AZITHROMYCIN 500 MG/NS 250 ML 500 MG/250 ML BAG 250 MG IVPB (12:39)
--- NOTE | 2024-10-04 12:46 | P.PNIM_ITS ---
Progress Note: A&P Assessment and Plan (1) Influenza A: Code(s): J10.1 - Influenza due to other identified influenza virus with other respiratory manifestations Status: Acute (2) COPD (chronic obstructive pulmonary disease): Qualifiers: COPD type: COPD with acute exacerbation Qualified Code(s): J44.1 - Chronic obstructive pulmonary disease with (acute) exacerbation Code(s): J44.9 - Chronic obstructive pulmonary disease, unspecified Status: Acute (3) TAMAR (obstructive sleep apnea): Code(s): G47.33 - Obstructive sleep apnea (adult) (pediatric) Status: Chronic (4) Tobacco use: Code(s): Z72.0 - Tobacco use Status: Chronic (5) Hypoxia: Code(s): R09.02 - Hypoxemia Status: Acute (6) Community acquired pneumonia: Qualifiers: Laterality: unspecified laterality Qualified Code(s): J18.9 - Pneumonia, unspecified organism Code(s): J18.9 - Pneumonia, unspecified organism Status: Acute Plan # Acute respiratory failure with hypoxemia Likely resulting from pneumonia and fluid overload ABG showed pH 7.455, pCO2 44.1, pO2 48.3, HCO3 30.3, O2 sat 85.8 % on 4L NC. place on BiPAP for work of breathing, ABG with no hypercarbia baseline supplemental O2 need: 8L w/CPAP at night time. Non at rest and uses intermittently with exertion Currently at 4 L at rest continues to improve slowly. Pulmonary consultation switched to CPAP at night cta negaitve for pe but shows basal pneumonia He will need oxygen evaluation at discharge # Community acquired pneumonia: Chest x-ray suggests bilateral lobe pneumonia and med pulmonary edema Possible resulting from bacteriuria infection superimposed influenza a effect Continue azithromycin ceftriaxone not on tamiflu as out of window Will stop azithromycin as completes 5 days course # Influenza A: - tested positive for influenza A on 09/29, symptom onset was 5 days ago - out of window for Tamiflu 75 mg - supportive care, see above - monitor WBC/CBC # Fluid overload, Possible acute on chronic diastolic heart failure Crackles bilateral base 4/2 Lasix 40 mg IV push once. Continue oral Lasix Echocardiogram April 06, 2022 showed normal EF Repeat echocardiogram 1. Left ventricular chamber dimension is normal. 2. Left ventricular systolic function is normal, estimated at 60-65%. 3. The left ventricular diastolic function is normal. 4. E/e' 7 is not elevated. provide Lasix 40 mg IV push once again 10/01 On oral Lasix. Does not appear fluid overloaded currently # COPD (chronic obstructive pulmonary disease): Young bui Received Solu-Medrol 125-in the ED, continue 60 mg IV q.6 Continue ceftriaxone and azithromycin on 09/29 Switched to oral steroid. Pulmonary consultation # Sinus bradycardia EKG shows sinus rhythm, heart rate 60 upon arrival, Repeat EKG : Sinus bradycardia 55, Place patient telemetry monitoring Patient is asymptomatic # TAMAR (obstructive sleep apnea): continue home CPAP # seizure disorder on phenytoin line # anxiety/depression: On citalopram # Tobacco use: - 1 PPD x20+ years - denied need for nicotine patch # DVT prophylaxis: Lovenox # code status: Full code Subjective Date/time seen: 10/04/24 12:46 Interval history: No overnight events. Oxygenation has improved. Still desaturates with activity. Review of Systems Review of Systems: All systems reviewed & are unremarkable except as noted in HPI and below Exam Narrative: GENERAL: Pleasant, in no acute distress. Well-nourished. - EYES: EOMI. Anicteric. - HENT: Moist mucous membranes. - LUNGS: Coarse breath sound bilaterall y, no wheezes or crackles, basal rhonchi noted - CARDIOVASCULAR: Regular rate and rhyth m. No murmur. No JVD. - ABDOMEN: Soft, non-tender and non-dist ended. No palpable masses. - EXTREMITIES: No edema. Peripheral puls es 2+. Non-tender. - NEUROLOGIC: No focal neurological defi cits. CN II-XII grossly intact. - PSYCHIATRIC: Awake, Alert and oriented x 3. Appropriate mood and affect. - SKIN: No rashes or lesions. Warm. - LYMPH: No cervical lymphadenopathy. Objective Data Vital Signs Vital Signs: Vital Signs - 24 hr 10/03/24 13:40 10/03/24 13:49 10/03/24 14:00 Temperature Pulse Rate 67 63 67 Respiratory Rate 18 18 Blood Pressure Pulse Oximetry Oxygen Delivery Oxygen Flow Rate 10/03/24 15:53 10/03/24 16:00 10/03/24 16:00 Temperature 98.4 F Pulse Rate 55 L 60 Respiratory Rate 14 Blood Pressure 115/76 Pulse Oximetry 96 93 Oxygen Delivery High Flow Therapy with Na Oxygen Flow Rate 6 10/03/24 18:00 10/03/24 20:00 10/03/24 20:00 Temperature 97.8 F Pulse Rate 70 65 67 Respiratory Rate 19 Blood Pressure 128/80 Pulse Oximetry 85 L Oxygen Delivery Oxygen Flow Rate 10/03/24 20:32 10/03/24 20:32 10/03/24 20:42 Temperature Pulse Rate 66 67 Respiratory Rate 18 18 Blood Pressure Pulse Oximetry 91 Oxygen Delivery High Flow Nasal Cannula Oxygen Flow Rate 5 10/03/24 22:00 10/03/24 22:05 10/03/24 23:20 Temperature Pulse Rate 67 60 Respiratory Rate Blood Pressure Pulse Oximetry 92 93 Oxygen Delivery High Flow Therapy with Na CPAP Oxygen Flow Rate 5 10/04/24 00:00 10/04/24 00:00 10/04/24 00:30 Temperature 97.8 F Pulse Rate 58 L 56 L Respiratory Rate 18 Blood Pressure 136/86 Pulse Oximetry 90 94 Oxygen Delivery CPAP Oxygen Flow Rate 7 10/04/24 02:00 10/04/24 02:17 10/04/24 02:18 Temperature Pulse Rate 50 L 65 63 Respiratory Rate 18 Blood Pressure Pulse Oximetry 99 Oxygen Delivery CPAP Oxygen Flow Rate 10/04/24 02:28 10/04/24 04:00 10/04/24 04:00 Temperature 98.0 F Pulse Rate 66 56 L 55 L Respiratory Rate 18 18 Blood Pressure 125/78 Pulse Oximetry 92 Oxygen Delivery Oxygen Flow Rate 10/04/24 04:30 10/04/24 06:00 10/04/24 07:44 Temperature 98.9 F Pulse Rate 48 L 65 Respiratory Rate 16 Blood Pressure 120/52 L Pulse Oximetry 95 90 Oxygen Delivery CPAP Oxygen Flow Rate 7 10/04/24 07:45 10/04/24 07:54 10/04/24 07:54 Temperature Pulse Rate 70 70 Respiratory Rate 20 20 Blood Pressure 132/65 Pulse Oximetry 94 Oxygen Delivery High Flow Nasal Cannula Oxygen Flow Rate 5 10/04/24 08:00 10/04/24 08:00 10/04/24 08:07 Temperature Pulse Rate 57 L 68 Respiratory Rate 20 Blood Pressure Pulse Oximetry 98 Oxygen Delivery High Flow Nasal Cannula Oxygen Flow Rate 4 10/04/24 08:40 10/04/24 10:00 10/04/24 12:00 Temperature 97.6 F Pulse Rate 65 67 Respiratory Rate 20 Blood Pressure 108/55 L Pulse Oximetry 96 Oxygen Delivery Nasal Cannula Oxygen Flow Rate 4 Intake/Output Intake/Output: Intake & Output 10/01/24 10/02/24 10/03/24 10/04/24 23:59 23:59 23:59 23:59 Intake Total 2170 2820 1760 1000 Output Total 3510 4300 2000 400 Balance -1340 -1480 -240 600 Meds/Results Medications: Active Medications Generic Name Dose Route Start Last Admin Trade Name Freq PRN Reason Stop Dose Admin Acetaminophen 650 mg 09/29/24 15:15 Acetaminophen 325 Mg Tablet PO Q6H PRN Mild Pain (1-3) or Fever Albuterol/Ipratropium 3 ml 09/29/24 20:00 10/04/24 07:51 Ipratropium 0.5 Mg/Albuterol Sulfate 2.5 Mg Ampul.Neb 3 Ml INHALATION 3 ml Q6HRT PAULY Administration Benzocaine 1 lozenge 09/29/24 15:15 Benzocaine/Menthol (*Bkc) 18 Ea Lozenge PO PRN PRN Sore Throat Benzonatate 100 mg 09/29/24 15:15 Benzonatate 100 Mg Capsule PO TID PRN Cough Citalopram Hydrobromide 20 mg 09/30/24 09:00 10/04/24 09:56 Citalopram Hydrobromide 20 Mg Tablet PO 20 mg DAILY PAULY Administration Diphenoxylate HCl/Atropine 1 tablet 09/29/24 20:35 09/30/24 20:34 Diphenoxylate/Atropine (*Crx) 2.5 Mg Tablet PO 1 tablet PRN PRN Administration Diarrhea Enoxaparin Sodium 40 mg 09/30/24 09:00 10/04/24 09:56 Enoxaparin 40 Mg/0.4 Ml Syringe SUB-Q 40 mg DAILY PAULY Administration Folic Acid 0.8 mg 09/30/24 09:00 10/04/24 09:55 Folic Acid 0.4 Mg Tablet PO 0.8 mg QAM PAULY Administration Furosemide 20 mg 09/30/24 09:00 10/04/24 09:55 Furosemide 20 Mg Tablet PO 20 mg QAM PAULY Administration Guaifenesin 600 mg 09/29/24 21:00 10/04/24 09:56 Guaifenesin 12 Hr 600 Mg Tabcr PO 600 mg Q12HR PAULY Administration Ceftriaxone Sodium 1 gm in 50 mls @ 100 mls/hr 09/30/24 12:00 10/04/24 12:20 Rocephin 1 Gm/Ns 50 Ml IVPB Infused Q24H PAULY Infusion Azithromycin 500 mg in 250 mls @ 250 mls/hr 09/30/24 12:00 10/04/24 12:39 Zithromax IVPB 250 mls/hr Q24H PAULY Administration Multivitamins Therapeutic 1 tablet 09/30/24 09:00 10/04/24 09:56 Multivitamins Therapeutic Tab (*Bkc) PO 1 tablet DAILY PAULY Administration Phenytoin Sodium 200 mg 09/30/24 09:20 10/04/24 09:55 Phenytoin Sodium 100 Mg Extended Release Cap PO 200 mg Q12HR PAULY Administration Sodium Chloride 1 spray 10/02/24 10:28 10/03/24 10:36 Saline 0.65% Edwin Soln 44 Ml Btl NASAL 1 spray Q6HR PRN Administration Congestion Radiology Results: ITS Impressions Chest X-Ray 09/29/24 14:17 IMPRESSION: 1. Mild increased interstitial pattern in the bilateral lower lung zones which could represent mild pulmonary edema or pneumonia. Chest CTA 10/02/24 14:45 IMPRESSION: 1. No evidence for pulmonary embolism. 2: Lower lobe consolidation bilaterally with areas of groundglass opacification in both lungs. Differential diagnosis includes pneumonia and/or atelectasis. 3: Mediastinal and bilateral hilar lymphadenopathy. Differential diagnosis includes reactive lymphadenopathy versus metastatic disease. Correlate for history of malignancy.
--- NOTE | 2024-10-04 17:25 | P.PNPL_ITS ---
Progress Note: A&P Assessment and Plan (1) Influenza A: Code(s): J10.1 - Influenza due to other identified influenza virus with other respiratory manifestations Status: Acute Assessment and Plan: Patient presented on 09/30/2023 with influenza A infection. He had symptoms for 5 days and was not treated with Tamiflu. He had worsening hypoxic respiratory failure and required BiPAP support for work of breathing. He was treated with Solu-Medrol 60 mg IV q.6 hours since admission. 10/03/2023: patient remained hypoxemic and Pulmonary was consulted. The patient tells me he is much improved since admission. He tells me he is 75% back to normal. His cough is completely resolved. He has no phlegm. Last night the patient wore Hospital BiPAP rate of 16, pressures 12/6 with 40% FiO2 last night. Patient is afebrile. White blood cell count 10.7, creatinine 0.53. yesterday is -1.3 L and since admission he is -2.4 L. weight is 102.9 kg with an admission weight of 104 kg. When I enter the room the patient was on 5 L nasal cannula with an ear pulse oximeter. I placed a hand pulse oximeter on him and the ear was reading 3 points lower than the hand. I decreased him to 4 L and his saturations were 93%. Solu-Medrol 60 q.6 discontinued after the morning dose. CT angiogram of the chest negative for pulmonary embolism, bilateral consolidations in both lung bases, mediastinal bilateral hilar lymphadenopathy. Plan: the patient has continued to improve. Patient had a CT scan today with bibasilar consolidations and is on day 4 ceftriaxone and azithromycin. Will continue ceftriaxone or an equivalent home antibiotic for 7 days and continue azithromycin for a total of 5 days. 10/03/24: he is feeling gradually better, has an Inogen POC at home; is has pulse flow O2 which may not be sufficient for exertion. Continuous flow may be needed. We will be able to determine when he parisi a Home O2 study before discharge. 10/04/24: Improved, O2 down to 4 L with saturation 98%; Home O2 study and discharge. (2) COPD (chronic obstructive pulmonary disease): Qualifiers: COPD type: COPD with acute exacerbation Qualified Code(s): J44.1 - Chronic obstructive pulmonary disease with (acute) exacerbation Code(s): J44.9 - Chronic obstructive pulmonary disease, unspecified Status: Acute Assessment and Plan: GOLD grade 3 group B COPD Patient smoke 1 pack per day from age 13 to 33 and then quit for 18 years and recently has been smoking 1.25 packs per day until admission. Total pack years 42. Alpha 1 anti trypsin genotype MM. PFT 11/16/22 - Moderately severe obstructive airway disease with evidence of air trapping and no response to br onchodilators on this testing. Severely reduced lung diffusion capacity. Home O2 Eval 11/16/22 ? requires 4L O2 with exertion, none at rest. Patient has obstructive sleep apnea and uses CPAP 16 with 6.5 L bleed in at night. Recently the patient has had worsening hypoxemic respiratory failure at home with saturations 89-91 at rest on room air. With activities saturations decreased into the 60s on room air. Admitted on 09/29/2024 with an ABG on 4 L nasal cannula 7.46/44/48. There is no evidence of hypercarbic respiratory failure. 10/02/24: Currently the patient says he is 75% back to his normal. His cough is resolved. He has no phlegm. Currently is on 4 L at rest with saturations 93%. Plan: I will continue DuoNebs q.6 hours. Since he was on appropriate doses of beta agonist and muscarinic antagonists I will discontinue his Anoro Ellipta. He has no wheezes with influenza a infection and I have discontinued his steroids. Continue guaifenesin 600 mg p.o. q.12 hours. Goal saturation 90- 94%, Smoking cessation counseling was provided and the patient tells me that he has quit smoking. 10/03/24: His cough is better, he is speaking in long sentences, getting closer to baseline. Will need Home O2 study before disharge. 10/04/24: Improved. Less cough, almost no sputum. (3) TAMAR (obstructive sleep apnea): Code(s): G47.33 - Obstructive sleep apnea (adult) (pediatric) Status: Chronic Assessment and Plan: PSG 01/29/20 - severe sleep apnea, AHI 42.1. patient uses 6.5 L bleed in Last download compliance through [email or web address] from 02/06/2024 through 05/05/2024. Patient is on CPAP 16 with EPR level 2, usage days greater than or equal to 4 hours was 99%. Average usage on days used is 9 hours and 41 minutes. AHI 0.3. Apnea index 0.1. Hypopnea index 0.2, central apnea index 0.0. Median leak 2.6. Ninety-fifth percentile leak 20.7. Maximum leak 28.6. I interpret this download as excellent compliance, adequate pressures and moderate leak. 10/02/24: The patient tells me he has improved and thinks he would be able to tolerate his CPAP with 7 L bleed in tonight. Plan: Will have patient wears home CPAP with 7 L bleed in and perform an overnight oximetry with these settings. 10/03/24: Overnight oximetry with CPAP 16 and 7 L O2 = lowest sat 87%, perfect. He spent no significant time below 88%. 10/04/24: continue CPAP 16 and 7 L O2 with sleep. Plan plan: Home O2 study today or tomorrow. He has O2 at home, just needs to know how much to use. He is much improved, stable for discharge. Subjective Date/time seen: 10/04/24 17:25 Interval history: 10/02/24 New Pulmonary consult Chief complaint: Influenza/Pneumonia/COPD/Hypoxia Narrative: 10/02/2024: This is a new pulmonary consult for influenza a with hypoxic respiratory failure. 69-year-old male with a history of GOLD grade 3 group B COPD on no oxygen at rest and 4 L with activity, TAMAR on CPAP 16 with 6.5 L bleed in, GERD and seizures. Patient is followed in the [facility] in last seen on 05/11/2024. This is a copy of the note 3 month follow-up regarding TAMAR on CPAP and COPD on oxygen. PCP Dr. Hai Ortiz. Hx: TAMAR, COPD, seizures He reports stable COPD symptoms, no ER visits. [place] occurs with stairs but w/o ADL interference. Cough is minimal with clear sputum in the morning. Denies wheezing, chest pains/tightness, fever, hemoptysis, or nighttime breathing issues. He takes Anoro daily. Has albuterol that he rarely uses. Has a nebulzier as well that he never uses; would benefit from new albuterol neb vials. He has a POC that he uses with activity 4L. He is a current smoker 3/4ppd. He is compliant with CPAP nightly and has O2 bleed in at 6.5L. Sleep overall is good and daytime function is good. DME IVR. Continue Anoro 1 inhalation a day, albuterol inhaler nebulizer p.r.n., requires 4 L with activity none at rest. 6.5 L bleed in with CPAP. On CPAP [id number] w/ EPR 2 w/ 6.5L O2 bleed-in. Download shows excellent compliance, 100% nights used. Avg usage 9.7hrs/night. AHI 0.3. Follow-up in 6 months. download compliance through [email or web address] from 02/06/2024 through 05/05/2024. Patient is on CPAP 16 with EPR level 2, usage days greater than or equal to 4 hours was 99%. Average usage on days used is 9 hours and 41 minutes. AHI 0.3. Apnea index 0.1. Hypopnea index 0.2, central apnea index 0.0. Median leak 2.6. Ninety-fifth percentile leak 20.7. Maximum leak 28.6. I interpret this download as excellent compliance, adequate pressures and moderate leak. at baseline the patient coughs 3-4 times in the morning and expectorates 1-2 times in the morning. At home he knows wears no oxygen at rest with home saturations 89-91. With activity around the house he wears no oxygen and when he goes up and down the stairs his saturations are in the 60s. When he walks to the mailbox is saturations were 75-80. He sits down and rests and his satu rations returned. When he goes out to the store he wears a portable oxygen concentrator on 4 but does not measure his saturations. 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 09/29/2024 patient presented to the emergency department with worsening shortness of breath over the last week, fever, hypoxemia. Blood pressure 110/70, heart rate 95, saturations on 6 L nasal cannula oxygen 88%. wheezing In the ED but not on the H and from the hospitalist. White blood cell count 8.1, creatinine 0.55, serum bicarb 32, eosinophils 0%. Lactic acid 0.8. BNP 170. Influenza a RT PCR study positive. ABG on 4 L nasal cannula 7.46/44/48. Chest x-ray with bibasilar infiltrates. He received 2 breathing treatments and had increased work of breathing and was started on BiPAP 12/6 with 36% FiO2 for increased work of breathing. Repeat blood gas 6 hours later 7.42/ 40/72. He was given IV steroids. empirically started on ceftriaxone and azithromycin. not given Tamiflu as it was felt he was outside the window for treatment. Given Lasix 40 IV for fluid overload. 09/30/2024: 6 L nasal cannula saturation 95%. On Solu-Medrol 60 q.6. 10/01/2024: 7 L nasal cannula saturations 92%. On Solu-Medrol 60 q.6. 10/02/2024: patient remained hypoxemic and Pulmonary was consulted. The patient tells me he is much improved since admission. He tells me he is 75% back to normal. His cough is completely resolved. He has no phlegm. Last night the patient wore Hospital BiPAP rate of 16, pressures 12/6 with 40% FiO2 last night. Patient is afebrile. White blood cell count 10.7, creatinine 0.53. yesterday is -1.3 L and since admission he is -2.4 L. weight is 102.9 kg with an admission weight of 104 kg. When I enter the room the patient was on 5 L nasal cannula with an ear pulse oximeter. I placed a hand pulse oximeter on him and the ear was reading 3 points lower than the hand. I decreased him to 4 L and his saturations were 93%. Solu-Medrol 60 q.6 discontinued after the morning dose. CT angiogram of the chest negative for pulmonary embolism, bilateral consolidations in both lung bases, mediastinal bilateral hilar lymphadenopathy. 10/03/2024: He is sitting up in bed; visitors include Cory and a teen girl. He feels better. Wearing O2 nasal cannula 6 L, sat is 89-92%. Still not all the way to his baseline. Gradually improved. His son will be back tomorrow afternoon. 10/04/24: He is on 4 L, standing and walking around the room. Feels great, says that he is ready to go home. He needs a home O2 study prior to leaving, needs to know how much O2 to use. This is already set up at home. Sat 98% on 4 L; can wean DATA: 10/02/24: EXAMINATION: CTA chest PE protocol DATE: 10/02/2024 14:45 CDT INDICATION: Hypoxia TECHNIQUE: Computed tomographic angiography (CTA) of the chest was performed with 100 mL Omnipaque-350 intravenous contrast. The dose-length product was 744.72 mGy-cm. Maximum intensity projection 3D-reconstructions of the aorta and other arteries were constructed by the technologist on a separate workstation. Automated exposure control and iterative reconstruction technique were employed. COMPARISON: CT dated 05/19/2024. FINDINGS: Enlarged pulmonary arteries consistent with pulmonary hypertension. Study is technically adequate without evidence for pulmonary embolism. Borderline heart size. There is mediastinal and hilar lymphadenopathy. No significant pleural or pericardial effusion. There is emphysema. No endobronchial lesions. There is bilateral lower lobe airspace consolidation with groundglass opacification of both lungs. No endobronchial lesions. No pneumothorax. There are multiple compression fractures of the thoracic spine, unchanged, chronic. IMPRESSION: 1. No evidence for pulmonary embolism. 2: Lower lobe consolidation bilaterally with areas of groundglass opacification in both lungs. Differential diagnosis includes pneumonia and/or atelectasis. 3: Mediastinal and bilateral hilar lymphadenopathy. Differential diagnosis includes reactive lymphadenopathy versus metastatic disease. Correlate for history of malignancy. 09/30/24: Echo Summary 1. Left ventricular chamber dimension is normal. 2. Left ventricular systolic function is normal, estimated at 60-65%. 3. The left ventricular diastolic function is normal. 4. E/e' 7 is not elevated. Right Ventricle Right ventricular systolic function is normal and with normal TAPSE 2.1 cm. Right ventricular chamber dimension is mildly enlarged. Right Atria Right atrial chamber dimension is normal. no PASP provided 05/19/2024: EXAMINATION:CT lung screening DATE: 05/19/2024 14:39 INDICATION: Personal history of nicotine dependence. Current smoker with 49 pack year history. TECHNIQUE: Computed tomography (CT) of the chest was performed without intravenous contrast. Automated exposure control and iterative reconstruction technique were employed. The dose-length product (DLP) was 245.35 mGy-cm. COMPARISON: Chest CT 04/08/2023, 04/03/22 FINDINGS: There is a 10 mm nodule in right lower lobe, stable from 04/03/22. There is peripheral septal thickening in the lungs associated with groundglass opacities. There is mild emphysema. No pleural effusion. The heart size is normal. There are coronary artery calcifications. No pericardial effusion. The central pulmonary arteries are enlarged, consistent with pulmonary arterial hypertension. There is chronic fat stranding at the root of the small bowel mesentery. There is mild thoracic spondylosis. There are multiple chronic compression fractures in the spine. IMPRESSION: 1. Lung-RADS category 2: Benign appearance or behavior. Continue annual screening with noncontrast low-dose chest CT in 12 months. RAST 09/22/21 - mild +dust, + moderate [place] grass, mild +Ragweed, IgE 149 Alpha 1 serum 169; PIMM IgG 1367 TB GOLD neg PFT 07/15/19 - moderate airflow obstruction. FEV1 53% FEV1/FVC 61% PFT 5/19/23 - Moderately severe obstructive airway disease with evidence of air trapping and no response to bronchodilators on this testing. Severely reduced lung diffusion capacity. Home O2 Eval 11/16/22 ? requires 4L O2 with exertion, none at rest. LDCT 04/03/22 - 12mm RLL with recommendation for a CT in [address] 10/12/22 ? stable 12mm noncalcified RLL pulmonary nodules. Mild ggo vs chronic scarring. F/u Chest CT in [address] 05/09/23 @ [place] ? unchanged 1.1cm RLL nodule. No adenopathy. 3 month f/u CT vs PET-CT recommended. Echo 06/03/20 ? EF 60-65%. RVSP not calculated. Echo 04/06/22 - EF 60-65%, RVSP not calculated. PAP Titration study 12/28/21 - recommended [id number] w/ 6L O2 bleed-in PSG 01/29/20 - severe sleep apnea, AHI 42.1. CPAP 02/18/2020- recommend CPAP 12 w/ 3L O2. Review of Systems Review of Systems: All systems reviewed & are unremarkable except as noted in HPI and below Exam Narrative: GEN: Alert, oriented, not in distress. 4L sat 94-98%% HEENT: pupils are equal, EOMI, symmetrical face; oral membranes moist NECK: Trachea is midline CHEST: Equal air entry, symmetric excursion, rare wheeze on expiration CV: Regular S1S2 no m/g/r ABD : (+) bowel sounds Extremities : no clubbing, cyanosis, or edema PSYCH: normal thought and speech Objective Data Vital Signs Vital Signs: Vital Signs - 24 hr 10/03/24 18:00 10/03/24 20:00 10/03/24 20:00 Temperature 36.6 C Pulse Rate 70 65 67 Respiratory Rate 19 Blood Pressure 128/80 Pulse Oximetry 85 L Oxygen Delivery Oxygen Flow Rate 10/03/24 20:32 10/03/24 20:32 10/03/24 20:42 Temperature Pulse Rate 66 67 Respiratory Rate 18 18 Blood Pressure Pulse Oximetry 91 Oxygen Delivery High Flow Nasal Cannula Oxygen Flow Rate 5 10/03/24 22:00 10/03/24 22:05 10/03/24 23:20 Temperature Pulse Rate 67 60 Respiratory Rate Blood Pressure Pulse Oximetry 92 93 Oxygen Delivery High Flow Therapy with Na CPAP Oxygen Flow Rate 5 10/04/24 00:00 10/04/24 00:00 10/04/24 00:30 Temperature 36.6 C Pulse Rate 58 L 56 L Respiratory Rate 18 Blood Pressure 136/86 Pulse Oximetry 90 94 Oxygen Delivery CPAP Oxygen Flow Rate 7 10/04/24 02:00 10/04/24 02:17 10/04/24 02:18 Temperature Pulse Rate 50 L 65 63 Respiratory Rate 18 Blood Pressure Pulse Oximetry 99 Oxygen Delivery CPAP Oxygen Flow Rate 10/04/24 02:28 10/04/24 04:00 10/04/24 04:00 Temperature 36.7 C Pulse Rate 66 56 L 55 L Respiratory Rate 18 18 Blood Pressure 125/78 Pulse Oximetry 92 Oxygen Delivery Oxygen Flow Rate 10/04/24 04:30 10/04/24 06:00 10/04/24 07:44 Temperature 37.2 C Pulse Rate 48 L 65 Respiratory Rate 16 Blood Pressure 120/52 L Pulse Oximetry 95 90 Oxygen Delivery CPAP Oxygen Flow Rate 7 10/04/24 07:45 10/04/24 07:54 10/04/24 07:54 Temperature Pulse Rate 70 70 Respiratory Rate 20 20 Blood Pressure 132/65 Pulse Oximetry 94 Oxygen Delivery High Flow Nasal Cannula Oxygen Flow Rate 5 10/04/24 08:00 10/04/24 08:00 10/04/24 08:07 Temperature Pulse Rate 57 L 68 Respiratory Rate 20 Blood Pressure Pulse Oximetry 98 Oxygen Delivery High Flow Nasal Cannula Oxygen Flow Rate 4 10/04/24 08:40 10/04/24 10:00 10/04/24 12:00 Temperature 36.4 C Pulse Rate 65 67 Respiratory Rate 20 Blood Pressure 108/55 L Pulse Oximetry 96 Oxygen Delivery Nasal Cannula Oxygen Flow Rate 4 10/04/24 12:00 10/04/24 12:00 10/04/24 14:00 Temperature Pulse Rate 62 72 Respiratory Rate Blood Pressure Pulse Oximetry 95 Oxygen Delivery High Flow Nasal Cannula Oxygen Flow Rate 4 10/04/24 14:55 10/04/24 14:55 10/04/24 15:03 Temperature Pulse Rate 62 62 96 Respiratory Rate 20 20 20 Blood Pressure Pulse Oximetry 92 Oxygen Delivery High Flow Nasal Cannula Oxygen Flow Rate 4 10/04/24 15:47 10/04/24 16:00 10/04/24 16:00 Temperature 36.9 C Pulse Rate 63 67 Respiratory Rate 18 Blood Pressure 110/63 Pulse Oximetry 92 94 Oxygen Delivery High Flow Nasal Cannula Oxygen Flow Rate 4 Intake/Output Intake/Output: Intake & Output 10/01/24 10/02/24 10/03/24 10/04/24 23:59 23:59 23:59 23:59 Intake Total 2170 2820 1760 1250 Output Total 3510 4300 2000 400 Balance -1340 -1480 -240 850 Meds/Results Medications: Active Medications Generic Name Dose Route Start Last Admin Trade Name Freq PRN Reason Stop Dose Admin Acetaminophen 650 mg 09/29/24 15:15 Acetaminophen 325 Mg Tablet PO Q6H PRN Mild Pain (1-3) or Fever Albuterol/Ipratropium 3 ml 09/29/24 20:00 10/04/24 14:52 Ipratropium 0.5 Mg/Albuterol Sulfate 2.5 Mg Ampul.Neb 3 Ml INHALATION 3 ml Q6HRT PAULY Administration Benzocaine 1 lozenge 09/29/24 15:15 Benzocaine/Menthol (*Bkc) 18 Ea Lozenge PO PRN PRN Sore Throat Benzonatate 100 mg 09/29/24 15:15 Benzonatate 100 Mg Capsule PO TID PRN Cough Citalopram Hydrobromide 20 mg 09/30/24 09:00 10/04/24 09:56 Citalopram Hydrobromide 20 Mg Tablet PO 20 mg DAILY PAULY Administration Diphenoxylate HCl/Atropine 1 tablet 09/29/24 20:35 09/30/24 20:34 Diphenoxylate/Atropine (*Crx) 2.5 Mg Tablet PO 1 tablet PRN PRN Administration Diarrhea Enoxaparin Sodium 40 mg 09/30/24 09:00 10/04/24 09:56 Enoxaparin 40 Mg/0.4 Ml Syringe SUB-Q 40 mg DAILY PAULY Administration Folic Acid 0.8 mg 09/30/24 09:00 10/04/24 09:55 Folic Acid 0.4 Mg Tablet PO 0.8 mg QAM PAULY Administration Furosemide 20 mg 09/30/24 09:00 10/04/24 09:55 Furosemide 20 Mg Tablet PO 20 mg QAM PAULY Administration Guaifenesin 600 mg 09/29/24 21:00 10/04/24 09:56 Guaifenesin 12 Hr 600 Mg Tabcr PO 600 mg Q12HR PAULY Administration Ceftriaxone Sodium 1 gm in 50 mls @ 100 mls/hr 09/30/24 12:00 10/04/24 12:20 Rocephin 1 Gm/Ns 50 Ml IVPB Infused Q24H PAULY Infusion Multivitamins Therapeutic 1 tablet 09/30/24 09:00 10/04/24 09:56 Multivitamins Therapeutic Tab (*Bkc) PO 1 tablet DAILY PAULY Administration Phenytoin Sodium 200 mg 09/30/24 09:20 10/04/24 09:55 Phenytoin Sodium 100 Mg Extended Release Cap PO 200 mg Q12HR PAULY Administration Sodium Chloride 1 spray 10/02/24 10:28 10/03/24 10:36 Saline 0.65% Edwin Soln 44 Ml Btl NASAL 1 spray Q6HR PRN Administration Congestion Radiology Results: ITS Impressions Chest X-Ray 09/29/24 14:17 IMPRESSION: 1. Mild increased interstitial pattern in the bilateral lower lung zones which could represent mild pulmonary edema or pneumonia. Chest CTA 10/02/24 14:45
[2024-10-04] MEDS: WATER FOR IRRIGATION, STERILE 1,000 ML BOTTLE 1000 ML (21:21)
[2024-10-05] VITALS (20 sets, daily range): BP systolic 114–131; BP diastolic 59–85; PULSE 48–103; RESP 16–93; TEMP 36.4–36.8; O2SAT 22–97
[2024-10-05] MEDS: IPRATROPIUM 0.5 MG/ALBUTEROL SULFATE 2.5 MG AMPUL.NEB 3 ML INHALATION ×2 (02:05→07:30)
[2024-10-05] MEDS: PHENYTOIN SODIUM 100 MG EXTENDED RELEASE CAP 200 MG PO (09:05)
[2024-10-05] MEDS: guaiFENesin 12 HR 600 MG TABCR PO (09:07)
[2024-10-05] MEDS: CITALOPRAM HYDROBROMIDE 20 MG TABLET PO (09:07)
[2024-10-05] MEDS: FOLIC ACID 0.4 MG TABLET 0.8 MG PO (09:08)
[2024-10-05] MEDS: FUROSEMIDE 20 MG TABLET PO (09:09)
[2024-10-05] MEDS: ENOXAPARIN 40 MG/0.4 ML SYRINGE SUB-Q (09:10)
[2024-10-05] MEDS: MULTIVITAMINS THERAPEUTIC TAB (*BKC) 1 TABLET PO (09:10)
--- NOTE | 2024-10-05 10:17 | P.PNPL_ITS ---
Progress Note: A&P Assessment and Plan (1) Influenza A: Code(s): J10.1 - Influenza due to other identified influenza virus with other respiratory manifestations Status: Acute Assessment and Plan: Patient presented on 09/30/2023 with influenza A infection. He had symptoms for 5 days and was not treated with Tamiflu. He had worsening hypoxic respiratory failure and required BiPAP support for work of breathing. He was treated with Solu-Medrol 60 mg IV q.6 hours since admission. 10/03/2023: patient remained hypoxemic and Pulmonary was consulted. The patient tells me he is much improved since admission. He tells me he is 75% back to normal. His cough is completely resolved. He has no phlegm. Last night the patient wore Hospital BiPAP rate of 16, pressures 12/6 with 40% FiO2 last night. Patient is afebrile. White blood cell count 10.7, creatinine 0.53. yesterday is -1.3 L and since admission he is -2.4 L. weight is 102.9 kg with an admission weight of 104 kg. When I enter the room the patient was on 5 L nasal cannula with an ear pulse oximeter. I placed a hand pulse oximeter on him and the ear was reading 3 points lower than the hand. I decreased him to 4 L and his saturations were 93%. Solu-Medrol 60 q.6 discontinued after the morning dose. CT angiogram of the chest negative for pulmonary embolism, bilateral consolidations in both lung bases, mediastinal bilateral hilar lymphadenopathy. Plan: the patient has continued to improve. Patient had a CT scan today with bibasilar consolidations and is on day 4 ceftriaxone and azithromycin. Will continue ceftriaxone or an equivalent home antibiotic for 7 days and continue azithromycin for a total of 5 days. 10/03/24: he is feeling gradually better, has an Inogen POC at home; is has pulse flow O2 which may not be sufficient for exertion. Continuous flow may be needed. We will be able to determine when he parisi a Home O2 study before discharge. 10/04/24: Improved, O2 down to 4 L with saturation 98%; Home O2 study and discharge. 10/06/2023: Patient tells me he is breathing 100% back to his normal. He has a small cough with no phlegm or hemoptysis. He is afebrile. Currently is on 4 L with saturations 91%. His weight today is 104.4 and he is -1.7 L since admission. Tells me he is ready to be discharged. From a pulmonary perspective patient is ready to be discharged on these pulmonary medications: Anoro Ellipta 62.5-25 at 1 puff q.day Rescue albuterol nebulizer 2.5 mg Q 4 hours p.r.n. shortness of breath or wheezing Rescue albuterol inhaler 2 puffs q.4 hours p.r.n. shortness of breath or wheezing Guaifenesin 600 mg p.o. q.12 hours p.r.n. Cough with secretions. Oxygen per home O2 assessment which has been ordered. When he naps or sleeps CPAP 16 with 7 L bleed in. Diuretics per hospitalist team. Currently on Lasix 20 mg p.o. q.day. follow-up in the Pulmonary office with his previously scheduled appointment on 11/05/2024 at 11:[address] Abad, call with questions. (2) COPD (chronic obstructive pulmonary disease): Qualifiers: COPD type: COPD with acute exacerbation Qualified Code(s): J44.1 - Chronic obstructive pulmonary disease with (acute) exacerbation Code(s): J44.9 - Chronic obstructive pulmonary disease, unspecified Status: Acute Assessment and Plan: GOLD grade 3 group B COPD Patient smoke 1 pack per day from age 13 to 33 and then quit for 18 years and recently has been smoking 1.25 packs per day until admission. Total pack years 42. Alpha 1 anti trypsin genotype MM. PFT 11/16/22 - Moderately severe obstructive airway disease with evidence of air trapping and no response to bronchodilators on this testing. Severely reduced lung diffusion capacity. Home O2 Eval 11/16/22 ? requires 4L O2 with exertion, none at rest. Patient has obstructive sleep apnea and uses CPAP 16 with 6.5 L bleed in at night. Recently the patient has had worsening hypoxemic respiratory failure at home with saturations 89-91 at rest on room air. With activities saturations decreased into the 60s on room air. Admitted on 09/29/2024 with an ABG on 4 L nasal cannula 7.46/44/48. There is no evidence of hypercarbic respiratory failure. 10/02/24: Currently the patient says he is 75% back to his normal. His cough is resolved. He has no phlegm. Currently is on 4 L at rest with saturations 93%. Plan: I will continue DuoNebs q.6 hours. Since he was on appropriate doses of beta agonist and muscarinic antagonists I will discontinue his Anoro Ellipta. He has no wheezes with influenza a infection and I have discontinued his steroids. Continue guaifenesin 600 mg p.o. q.12 hours. Goal saturation 90- 94%, Smoking cessation counseling was provided and the patient tells me that he has quit smoking. 10/03/24: His cough is better, he is speaking in long sentences, getting closer to baseline. Will need Home O2 study before discharge. 10/04/24: Improved. Less cough, almost no sputum. 10/05/2024: Patient tells me he is breathing back to his baseline. red be discharged after home O2 assessment. Would continue his prior COPD medications. The patient tells me that he is done smoking and I have told him it is absolutely necessary to quit smoking at this time. He understands this and states he will quit. Patient is on day 7 of ceftriaxone and needs no further antibiotics at discharge. (3) TAMAR (obstructive sleep apnea): Code(s): G47.33 - Obstructive sleep apnea (adult) (pediatric) Status: Chronic Assessment and Plan: PSG 01/29/20 - severe sleep apnea, AHI 42.1. patient uses 6.5 L bleed in Last download compliance through [employer] from 02/06/2024 through 05/05/2024. Patient is on CPAP 16 with EPR level 2, usage days greater than or equal to 4 hours was 99%. Average usage on days used is 9 hours and 41 minutes. AHI 0.3. Apnea index 0.1. Hypopnea index 0.2, central apnea index 0.0. Median leak 2.6. Ninety-fifth percentile leak 20.7. Maximum leak 28.6. I interpret this download as excellent compliance, adequate pressures and moderate leak. 10/02/24: The patient tells me he has improved and thinks he would be able to tolerate his CPAP with 7 L bleed in tonight. Plan: Will have patient wears home CPAP with 7 L bleed in and perform an overnight oximetry with these settings. 10/03/24: Overnight oximetry with CPAP 16 and 7 L O2 = lowest sat 87%, perfect. He spent no significant time below 88%. 10/04/24: continue CPAP 16 and 7 L O2 with sleep. 10/05/2024: Continue CPAP 16 with 7 L bleed in at home. Subjective Date/time seen: 10/05/24 10:17 Interval history: 10/02/24 New Pulmonary consult Chief complaint: Influenza/Pneumonia/COPD/Hypoxia Narrative: 10/02/2024: This is a new pulmonary consult for influenza a with hypoxic respiratory failure. 69-year-old male with a history of GOLD grade 3 group B COPD on no oxygen at rest and 4 L with activity, TAMAR on CPAP 16 with 6.5 L bleed in, GERD and seizures. Patient is followed in the Pulmonary Clinic in last seen on 05/11/2024. This is a copy of the note 3 month follow-up regarding TAMAR on CPAP and COPD on oxygen. PCP Dr. Hai Ortiz. Hx: TAMAR, COPD, seizures He reports stable COPD symptoms, no ER visits. [place] occurs with stairs but w/o ADL interference. Cough is minimal with clear sputum in the morning. Denies wheezing, chest pains/tightness, fever, hemoptysis, or nighttime breathing issues. He takes Anoro daily. Has albuterol that he rarely uses. Has a nebulzier as well that he never uses; would benefit from new albuterol neb vials. He has a POC that he uses with activity 4L. He is a current smoker 3/4ppd. He is compliant with CPAP nightly and has O2 bleed in at 6.5L. Sleep overall is good and daytime function is good. DME IVR. Continue Anoro 1 inhalation a day, albuterol inhaler nebulizer p.r.n., requires 4 L with activity none at rest. 6.5 L bleed in with CPAP. On CPAP [id number] w/ EPR 2 w/ 6.5L O2 bleed-in. Download shows excellent compliance, 100% nights used. Avg usage 9.7hrs/night. AHI 0.3. Follow-up in 6 months. download compliance through [employer] from 02/06/2024 through 05/05/2024. Patient is on CPAP 16 with EPR level 2, usage days greater than or equal to 4 hours was 99%. Average usage on days used is 9 hours and 41 minutes. AHI 0.3. Apnea index 0.1. Hypopnea index 0.2, central apnea index 0.0. Median leak 2.6. Ninety-fifth percentile leak 20.7. Maximum leak 28.6. I interpret this download as excellent compliance, adequate pressures and moderate leak. at baseline the patient coughs 3-4 times in the morning and expectorates 1-2 times in the morning. At home he knows wears no oxygen at rest with home saturations 89-91. With activity around the house he wears no oxygen and when he goes up and down the stairs his saturations are in the 60s. When he walks to the mailbox is saturations were 75-80. He sits down and rests and his saturations returned. When he goes out to the store he wears a portable oxygen concentrator on 4 but does not measure his saturations. 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 09/29/2024 patient presented to the emergency department with worsening shortness of breath over the last week, fever, hypoxemia. Blood pressure 110/70, heart rate 95, saturations on 6 L nasal cannula oxygen 88%. wheezing In the ED but not on the H and from the hospitalist. White blood cell count 8.1, creatinine 0.55, serum bicarb 32, eosinophils 0%. Lactic acid 0.8. BNP 170. Influenza a RT PCR study positive. ABG on 4 L nasal cannula 7.46/44/48. Chest x-ray with bibasilar infiltrates. He received 2 breathing treatments and had increased work of breathing and was started on BiPAP 12/6 with 36% FiO2 for increased work of breathing. Repeat blood gas 6 hours later 7.42/ 40/72. He was given IV steroids. empirically started on ceftriaxone and azithromycin. not given Tamiflu as it was felt he was outside the window for treatment. Given Lasix 40 IV for fluid overload. 09/30/2024: 6 L nasal cannula saturation 95%. On Solu-Medrol 60 q.6. 10/01/2024: 7 L nasal cannula saturations 92%. On Solu-Medrol 60 q.6. 10/02/2024: patient remained hypoxemic and Pulmonary was consulted. The patient tells me he is much improved since admission. He tells me he is 75% back to normal. His cough is completely resolved. He has no phlegm. Last night the patient wore Hospital BiPAP rate of 16, pressures 12/6 with 40% FiO2 last night. Patient is afebrile. White blood cell count 10.7, creatinine 0.53. yesterday is -1.3 L and since admission he is -2.4 L. weight is 102.9 kg with an admission weight of 104 kg. When I enter the room the patient was on 5 L nasal cannula with an ear pulse oximeter. I placed a hand pulse oximeter on him and the ear was reading 3 points lower than the hand. I decreased him to 4 L and his saturations were 93%. Solu-Medrol 60 q.6 discontinued after the morning dose. CT angiogram of the chest negative for pulmonary embolism, bilateral consolidations in both lung bases, mediastinal bilateral hilar lymphadenopathy. 10/03/2024: He is sitting up in bed; visitors include Cory and a teen girl. He feels better. Wearing O2 nasal cannula 6 L, sat is 89-92%. Still not all the way to his baseline. Gradually improved. His son will be back tomorrow afternoon. 10/04/24: He is on 4 L, standing and walking around the room. Feels great, says that he is ready to go home. He needs a home O2 study prior to leaving, needs to know how much O2 to use. This is already set up at home. Sat 98% on 4 L; can wean. 10/06/2023: Patient tells me he is breathing 100% back to his normal. He has a small cough with no phlegm or hemoptysis. He is afebrile. Currently is on 4 L with saturations 91%. His weight today is 104.4 and he is -1.7 L since admission. Tells me he is ready to be discharged. DATA: 10/04/2023: Overnight oximetry on home unit was 7 L bleed in. Recording duration 5 hours and 57 minutes. Average saturation 92%. Low saturation 76%. Time with saturation less than or equal to 88% was 2 minutes. Oxygen desaturation index 1.6. 10/02/24: EXAMINATION: CTA chest PE protocol DATE: 10/02/2024 14:45 CDT INDICATION: Hypoxia TECHNIQUE: Computed tomographic angiography (CTA) of the chest was performed with 100 mL Omnipaque-350 intravenous contrast. The dose-length product was 744.72 mGy-cm. Maximum intensity projection 3D-reconstructions of the aorta and other arteries were constructed by the technologist on a separate workstation. Automated exposure control and iterative reconstruction technique were employed. COMPARISON: CT dated 05/19/2024. FINDINGS: Enlarged pulmonary arteries consistent with pulmonary hypertension. Study is technically adequate without evidence for pulmonary embolism. Borderline heart size. There is mediastinal and hilar lymphadenopathy. No significant pleural or pericardial effusion. There is emphysema. No endobronchial lesions. There is bilateral lower lobe airspace consolidation with groundglass opacification of both lungs. No endobronchial lesions. No pneumothorax. There are multiple compression fractures of the thoracic spine, unchanged, chronic. IMPRESSION: 1. No evidence for pulmonary embolism. 2: Lower lobe consolidation bilaterally with areas of groundglass opacification in both lungs. Differential diagnosis includes pneumonia and/or atelectasis. 3: Mediastinal and bilateral hilar lymphadenopathy. Differential diagnosis includes reactive lymphadenopathy versus metastatic disease. Correlate for history of malignancy. 09/30/24: Echo Summary 1. Left ventricular chamber dimension is normal. 2. Left ventricular systolic function is normal, estimated at 60-65%. 3. The left ventricular diastolic function is normal. 4. E/e' 7 is not elevated. Right Ventricle Right ventricular systolic function is normal and with normal TAPSE 2.1 cm. Right ventricular chamber dimension is mildly enlarged. Right Atria Right atrial chamber dimension is normal. no PASP provided 05/19/2024: EXAMINATION:CT lung screening DATE: 05/19/2024 14:39 INDICATION: Personal history of nicotine dependence. Current smoker with 49 pack year history. TECHNIQUE: Computed tomography (CT) of the chest was performed without intravenous contrast. Automated exposure control and iterative reconstruction technique were employed. The dose-length product (DLP) was 245.35 mGy-cm. COMPARISON: Chest CT 04/08/2023, 04/03/22 FINDINGS: There is a 10 mm nodule in right lower lobe, stable from 04/03/22. There is peripheral septal thickening in the lungs associated with groundglass opacities. There is mild emphysema. No pleural effusion. The heart size is normal. There are coronary artery calcifications. No pericardial effusion. The central pulmonary arteries are enlarged, consistent with pulmonary arterial hypertension. There is chronic fat stranding at the root of the small bowel mesentery. There is mild thoracic spondylosis. There are multiple chronic compression fractures in the spine. IMPRESSION: 1. Lung-RADS category 2: Benign appearance or behavior. Continue annual screening with noncontrast low-dose chest CT in 12 months. RAST 09/22/21 - mild +dust, + moderate [place] grass, mild +Ragweed, IgE 149 Alpha 1 serum 169; PIMM IgG 1367 TB GOLD neg PFT 07/15/19 - moderate airflow obstruction. FEV1 53% FEV1/FVC 61% PFT 11/16/22 - Moderately severe obstructive airway disease with evidence of air trapping and no response to bronchodilators on this testing. Severely reduced lung diffusion capacity. Home O2 Eval 11/16/22 ? requires 4L O2 with exertion, none at rest. LDCT 04/03/22 - 12mm RLL with recommendation for a CT in [address] 10/12/22 ? stable 12mm noncalcified RLL pulmonary nodules. Mild ggo vs chronic scarring. F/u Chest CT in [address] 05/09/23 @ [place] ? unchanged 1.1cm RLL nodule. No adenopathy. 3 month f/u CT vs PET-CT recommended. Echo 06/03/20 ? EF 60-65%. RVSP not calculated. Echo 04/06/22 - EF 60-65%, RVSP not calculated. PAP Titration study 12/28/21 - recommended [id number] w/ 6L O2 bleed-in PSG 01/29/20 - severe sleep apnea, AHI 42.1. CPAP 02/18/2020- recommend CPAP 12 w/ 3L O2. Review of Systems Constitutional: Constitutional: Reports no additional constitutional complaints Eyes: Eyes: Reports no additional eye complaints ENT: Reports system reviewed and no additional complaints, except as documented Cardiovascular: Cardiovascular: Reports no additional cardiovascular complaints Respiratory: Respiratory: Reports no additional respiratory complaints Gastrointestinal: Gastrointestinal: Reports no additional gastrointestinal complaints Musculoskeletal: Musculoskeletal: Reports no additional musculoskeletal complaints Neurologic: Reports system reviewed and no additional complaints, except as documented Psychiatric: Psychiatric: Reports no additional psychiatric complaints Endocrine: Endocrine: Reports no additional endocrine complaints Hematologic/Lymphatic: Hematologic/Lymphatic: Reports no additional hematologic/lymphatic complaints Allergic/Immunologic: Allergic/Immunologic: Reports no additional bobby rgic/immunologic complaints Exam Const: General: cooperative, healthy appearing and comfortable Orientation/consciousness: oriented to person, oriented to place and oriented to time HENMT: Head: normal to inspection Ears: hearing grossly normal bilaterally Eyes: General: appearance normal, both eyes and all related structures Neck: Neck: normal visual inspection Chest: Chest palpation & inspection: normal inspection of the chest Resp: Effort & Inspection: normal respiratory effort and able to speak in complete sentences Auscultation: no crackles, no rales, no rhonchi, no wheezes and lung sounds not diminished Other: Lungs clear to auscultation Cardio: Jugular venous distension: no JVD GI: Inspection: normal to inspection Skin: General skin exam: normal color Neuro: General: oriented to person, oriented to place and oriented to time Extrem: General: normal to inspection and no edema Psych: Appearance: grossly normal Objective Data Vital Signs Vital Signs: Vital Signs - 24 hr 10/04/24 12:00 10/04/24 12:00 10/04/24 12:00 Temperature 36.4 C Pulse Rate 67 62 Respiratory Rate 20 Blood Pressure 108/55 L Pulse Oximetry 96 95 Oxygen Delivery High Flow Nasal Cannula Oxygen Flow Rate 4 Fraction of Inspired Oxygen 10/04/24 14:00 10/04/24 14:55 10/04/24 14:55 Temperature Pulse Rate 72 62 62 Respiratory Rate 20 20 Blood Pressure Pulse Oximetry 92 Oxygen Delivery High Flow Nasal Cannula Oxygen Flow Rate 4 Fraction of Inspired Oxygen 10/04/24 15:03 10/04/24 15:47 10/04/24 16:00 Temperature 36.9 C Pulse Rate 96 63 Respiratory Rate 20 18 Blood Pressure 110/63 Pulse Oximetry 92 94 Oxygen Delivery High Flow Nasal Cannula Oxygen Flow Rate 4 Fraction of Inspired Oxygen 10/04/24 16:00 10/04/24 18:00 10/04/24 20:00 Temperature 36.6 C Pulse Rate 67 66 59 L Respiratory Rate 20 Blood Pressure 120/67 Pulse Oximetry 99 Oxygen Delivery Oxygen Flow Rate Fraction of Inspired Oxygen 10/04/24 20:00 10/04/24 20:13 10/04/24 20:23 Temperature Pulse Rate 55 L 70 70 Respiratory Rate 16 16 Blood Pressure Pulse Oximetry Oxygen Delivery Oxygen Flow Rate Fraction of Inspired Oxygen 10/04/24 21:15 10/04/24 22:00 10/05/24 00:00 Temperature 36.8 C Pulse Rate 56 L 85 Respiratory Rate 18 Blood Pressure 123/77 Pulse Oximetry 98 94 Oxygen Delivery High Flow Nasal Cannula Oxygen Flow Rate 4 Fraction of Inspired Oxygen 10/05/24 00:00 10/05/24 00:20 10/05/24 02:00 Temperature Pulse Rate 56 L 57 L Respiratory Rate Blood Pressure Pulse Oximetry 94 Oxygen Delivery CPAP Oxygen Flow Rate 7 Fraction of Inspired Oxygen 10/05/24 02:05 10/05/24 02:15 10/05/24 02:19 Temperature Pulse Rate 70 70 62 Respiratory Rate 16 16 Blood Pressure Pulse Oximetry 94 Oxygen Delivery CPAP Oxygen Flow Rate Fraction of Inspired Oxygen 10/05/24 04:00 10/05/24 04:00 10/05/24 04:00 Temperature 36.6 C Pulse Rate 67 64 Respiratory Rate 16 Blood Pressure 131/59 L Pulse Oximetry 94 97 Oxygen Delivery CPAP Oxygen Flow Rate 7 Fraction of Inspired Oxygen 10/05/24 06:00 10/05/24 07:30 10/05/24 07:30 Temperature Pulse Rate 51 L 70 Respiratory Rate 20 Blood Pressure Pulse Oximetry 91 Oxygen Delivery Room Air Oxygen Flow Rate Fraction of Inspired Oxygen 21 10/05/24 07:35 10/05/24 07:47 Temperature 36.4 C Pulse Rate 68 48 L Respiratory Rate 20 93 H Blood Pressure 128/85 Pulse Oximetry 22 L Oxygen Delivery Oxygen Flow Rate Fraction of Inspired Oxygen Intake/Output Intake/Output: Intake & Output 10/02/24 10/03/24 10/04/24 10/05/24 23:59 23:59 23:59 23:59 Intake Total 2820 1760 1610 358 Output Total 4300 2000 400 Balance -1480 -240 1210 358 Meds/Results Medications: Active Medications Generic Name Dose Route Start Last Admin Trade Name Freq PRN Reason Stop Dose Admin Acetaminophen 650 mg 09/29/24 15:15 Acetaminophen 325 Mg Tablet PO Q6H PRN Mild Pain (1-3) or Fever Albuterol/Ipratropium 3 ml 09/29/24 20:00 10/05/24 07:30 Ipratropium 0.5 Mg/Albuterol Sulfate 2.5 Mg Ampul.Neb 3 Ml INHALATION 3 ml Q6HRT PAULY Administration Benzocaine 1 lozenge 09/29/24 15:15 Benzocaine/Menthol (*Bkc) 18 Ea Lozenge PO PRN PRN Sore Throat Benzonatate 100 mg 09/29/24 15:15 Benzonatate 100 Mg Capsule PO TID PRN Cough Citalopram Hydrobromide 20 mg 09/30/24 09:00 10/05/24 09:07 Citalopram Hydrobromide 20 Mg Tablet PO 20 mg DAILY PAULY Administration Diphenoxylate HCl/Atropine 1 tablet 09/29/24 20:35 09/30/24 20:34 Diphenoxylate/Atropine (*Crx) 2.5 Mg Tablet PO 1 tablet PRN PRN Administration Diarrhea Enoxaparin Sodium 40 mg 09/30/24 09:00 10/05/24 09:10 Enoxaparin 40 Mg/0.4 Ml Syringe SUB-Q 40 mg DAILY PAULY Administration Folic Acid 0.8 mg 09/30/24 09:00 10/05/24 09:08 Folic Acid 0.4 Mg Tablet PO 0.8 mg QAM PAULY Administration Furosemide 20 mg 09/30/24 09:00 10/05/24 09:09 Furosemide 20 Mg Tablet PO 20 mg QAM PAULY Administration Guaifenesin 600 mg 09/29/24 21:00 10/05/24 09:07 Guaifenesin 12 Hr 600 Mg Tabcr PO 600 mg Q12HR PAULY Administration Ceftriaxone Sodium 1 gm in 50 mls @ 100 mls/hr 09/30/24 12:00 10/04/24 12:20 Rocephin 1 Gm/Ns 50 Ml IVPB Infused Q24H PAULY Infusion Multivitamins Therapeutic 1 tablet 09/30/24 09:00 10/05/24 09:10 Multivitamins Therapeutic Tab (*Bkc) PO 1 tablet DAILY PAULY Administration Phenytoin Sodium 200 mg 09/30/24 09:20 10/05/24 09:05 Phenytoin Sodium 100 Mg Extended Release Cap PO 200 mg Q12HR PAULY Administration Sodium Chloride 1 spray 10/02/24 10:28 10/03/24 10:36 Saline 0.65% Edwin Soln 44 Ml Btl NASAL 1 spray Q6HR PRN Administration Congestion Radiology Results: ITS Impressions Chest X-Ray 09/29/24 14:17 IMPRESSION: 1. Mild increased interstitial pattern in the bilateral lower lung zones which could represent mild pulmonary edema or pneumonia. Chest CTA 10/02/24 14:45
--- NOTE | 2024-10-05 10:52 | P.DS_ITS ---
DS: Admitting Diagnosis Discharge Date 10/05/2024 Admitting Diagnosis shortness of breath DS: Discharge Diagnosis Discharge Diagnosis (1) Influenza A: Code(s): J10.1 - Influenza due to other identified influenza virus with other respiratory manifestations Status: Acute (2) COPD (chronic obstructive pulmonary disease): Qualifiers: COPD type: COPD with acute exacerbation Qualified Code(s): J44.1 - Chronic obstructive pulmonary disease with (acute) exacerbation Code(s): J44.9 - Chronic obstructive pulmonary disease, unspecified Status: Acute (3) TAMAR (obstructive sleep apnea): Code(s): G47.33 - Obstructive sleep apnea (adult) (pediatric) Status: Chronic (4) Tobacco use: Code(s): Z72.0 - Tobacco use Status: Chronic (5) Hypoxia: Code(s): R09.02 - Hypoxemia Status: Acute (6) Community acquired pneumonia: Qualifiers: Laterality: unspecified laterality Qualified Code(s): J18.9 - Pneumonia, unspecified organism Code(s): J18.9 - Pneumonia, unspecified organism Status: Acute DS: Summary Hospital Course Hospital Course: # Acute respiratory failure with hypoxemia Likely resulting from pneumonia and fluid overload ABG showed pH 7.455, pCO2 44.1, pO2 48.3, HCO3 30.3, O2 sat 85.8 % on 4L NC. place on BiPAP for work of breathing, ABG with no hypercarbia baseline supplemental O2 need: 8L w/CPAP at night time. Non at rest and uses intermittently with exertion Currently at 4 L at rest continues to improve slowly. Pulmonary consultation switched to CPAP at night cta negaitve for pe but shows basal pneumonia He was evaluated for oxygen requirement at discharge. He required 4 L at rest and 6 L with activity his oxygen requirement continued to improve during hospitalisation # Community acquired pneumonia: Chest x-ray suggests bilateral lobe pneumonia and med pulmonary edema Possible resulting from bacteriuria infection superimposed influenza a effect Continue azithromycin ceftriaxone not on tamiflu as out of window completed ceftriaxone and azithromycin during hosptialsiation. # Influenza A: - tested positive for influenza A on 09/29, symptom onset was 5 days ago - out of window for Tamiflu 75 mg - supportive care, see above - monitor WBC/CBC # Fluid overload, Possible acute on chronic diastolic heart failure Crackles bilateral base 09/30 Lasix 40 mg IV push once. Continue oral Lasix Echocardiogram April 06, 2022 showed normal EF Repeat echocardiogram 1. Left ventricular chamber dimension is normal. 2. Left ventricular systolic function is normal, estimated at 60-65%. 3. The left ventricular diastolic function is normal. 4. E/e' 7 is not elevated. provide Lasix 40 mg IV push once again 10/01 On oral Lasix. Does not appear fluid overloaded currently increase lasix to 40 mg daily at [facility]. # COPD (chronic obstructive pulmonary disease): Young bui Received Solu-Medrol 125-in the ED, continue 60 mg IV q.6 Continue ceftriaxone and azithromycin on 09/29 Switched to oral steroid. Pulmonary consultation # Sinus bradycardia EKG shows sinus rhythm, heart rate 60 upon arrival, Repeat EKG : Sinus bradycardia 55, Place patient telemetry monitoring Patient is asymptomatic # TAMAR (obstructive sleep apnea): continue home CPAP # seizure disorder on phenytoin line # anxiety/depression: On citalopram # Tobacco use: - 1 PPD x20+ years - denied need for nicotine patch # DVT prophylaxis: Lovenox # code status: Full code Time Spent with Patient Time attestation: Total time spent providing and/or coordinating discharge services: 35 minutes Exam Narrative: GENERAL: Pleasant, in no acute distress. Well-nourished. - EYES: EOMI. Anicteric. - HENT: Moist mucous membranes. - LUNGS: Coarse breath sound bilaterall y, no wheezes or crackles, basal rhonchi noted - CARDIOVASCULAR: Regular rate and rhyth m. No murmur. No JVD. - ABDOMEN: Soft, non-tender and non-dist ended. No palpable masses. - EXTREMITIES: No edema. Peripheral puls es 2+. Non-tender. - NEUROLOGIC: No focal neurological defi cits. CN II-XII grossly intact. - PSYCHIATRIC: Awake, Alert and oriented x 3. Appropriate mood and affect. - SKIN: No rashes or lesions. Warm. - LYMPH: No cervical lymphadenopathy. DS: Data Imaging Radiologist's impression: ITS Impressions Chest X-Ray 09/29/24 14:17 IMPRESSION: 1. Mild increased interstitial pattern in the bilateral lower lung zones which could represent mild pulmonary edema or pneumonia. Chest CTA 10/02/24 14:45 IMPRESSION: 1. No evidence for pulmonary embolism. 2: Lower lobe consolidation bilaterally with areas of groundglass opacification in both lungs. Differential diagnosis includes pneumonia and/or atelectasis. 3: Mediastinal and bilateral hilar lymphadenopathy. Differential diagnosis includes reactive lymphadenopathy versus metastatic disease. Correlate for history of malignancy. Discharge Plan Discharge Attending physician on discharge: Jaron Abad Consulting providers: Harshil Bailey Discharging Clinician: Jaron Abad Anticipated Discharge Date/Time: 10/05/24 10:54 Patient Disposition: Home Activity: as tolerated Diet: heart healthy Discharge Instructions: oxygen: 4 L at rest and 6 L with activity CPAP at night with oxygen 7L bleed in Patient Instructions: Antibiotic Form Patient Language: Belarusian Follow-up/Referrals: WillHai MD [Primary Care Provider] - 1 Week Harshil Bailey MD [Physician] - Keep Reg. Scheduled Appt. Discharge Medications: New guaifenesin [Mucus Relief ER] 600 mg Tablet Extended Release 12hr 600 mg PO Q12HR Qty: 30 0RF Continued citalopram 20 mg tablet 20 mg PO DAILY folic acid 800 mcg tablet 0.8 mg PO DAILY multivitamin [Daily Multi-Vitamin] Tablet 1 tablet PO DAILY Anoro Ellipta 62.5-25 mcg/actuation blister with device 1 inh inhalation DAILY 90 Days Qty: 180 3RF albuterol sulfate 90 mcg/actuation HFA aerosol inhaler 1 - 2 inh inhalation Q4-6H PRN (Reason: shortness of breath or wheezing) Qty: 8.5 2RF albuterol sulfate 2.5 mg /3 mL (0.083 %) solution for nebulization 2.5 mg inhalation QID PRN (Reason: shortness of breath or wheezing) Qty: 360 1RF phenytoin sodium extended 100 mg capsule 200 mg PO Q12H Changed furosemide 20 mg tablet 40 mg PO QAM Qty: 60 0RF Other Ambulatory Orders: Basic Metabolic Panel (Routine) Timeframe: 1 Week Location: Determined by Patient Ordered By: Jaron Abad Date of admission: 09/29/24 16:47 Primary Care Provider: Hai Palma Admitting Provider: Israel Alfredo Attending physician on admission: Israel Alfredo Condition: Improved Hospitalist MIPS Heart Failure (Exclusion) Patient has history of Heart Transplant or Left Ventricular Assistive Device?: No IF YES, STOP HERE Heart Failure (Qualifier) Patient has current or prior documentation of LVEF less than or equal to 40%, or mod/servere depressed LVSF?: No IF NO, STOP HERE
--- NOTE | 2024-10-05 13:44 | HOMEO2EVAL ---
Evaluation was performed at [facility] Home Oxygen Evaluation RC: Home Oxygen (O2) Evaluation Start: 10/04/24 17:32 Freq: ONCE Status: Active Protocol: RPE Activity Type Activity Date Activity User E-sign Co-sign Detail Recorded Client Recorded Date Recorded By Document 10/05/24 11:45 MALATHI [email or web address] 10/05/24 12:10 MALATHI Document 10/05/24 11:46 MALATHI [email or web address] 10/05/24 12:10 MALATHI Document 10/05/24 11:47 [email or web address] [email or web address] 10/05/24 12:10 MALATHI Document 10/05/24 11:50 [email or web address] [email or web address] 10/05/24 12:10 MALATHI Document 10/05/24 11:51 [email or web address] [email or web address] 10/05/24 12:10 MALATHI Document 10/05/24 11:52 MALATHI [email or web address] 10/05/24 12:10 MALATHI 10/05/24 10/05/24 10/05/24 11:45 11:46 11:47 Home O2 Evaluation [Oxygen] -Test Phase Resting Resting Resting -Oxygen Delivery Room Air Nasal Cannula Nasal Cannula -Oxygen Flow Rate (L/min) 2 4 [Pulse Oximetry] -Pulse Oximetry (90-100 %) 82 L 86 L 90 [Pulse Rate] -Pulse Rate (60-100 beats/min) 90 [Evaluation] -Activity Tolerance [Exercise] -Ambulation Distance (feet) -Ambulation Distance (meters) [Comments] -Home Oxygen Evaluation Comments [Charges] -Evaluation Charges O2 Evaluation by Pulmonary 10/05/24 10/05/24 10/05/24 11:50 11:51 11:52 Home O2 Evaluation [Oxygen] -Test Phase Exercise Exercise Exercise -Oxygen Delivery Nasal Cannula Nasal Cannula Nasal Cannula -Oxygen Flow Rate (L/min) 4 5 6 [Pulse Oximetry] -Pulse Oximetry (90-100 %) 85 L 86 L 89 L [Pulse Rate] -Pulse Rate (60-100 beats/min) 103 H [Evaluation] -Activity Tolerance Excellent [Exercise] -Ambulation Distance (feet) 200 -Ambulation Distance (meters) 60.95 [Comments] -Home Oxygen Evaluation Comments Pt requires 4 l at rest and 6 l with activity [Charges] -Evaluation Charges
== END 2024-10-05 13:55 | disposition home or self-care (01) | DRG 193 ==
LOC: ANHED 15:02 → ANHIMU 15:28
PROVIDERS: Hospitalist; Student in an Organized Health Care Education/Training Program; Admitting Provider Internal Medicine; Emergency Provider Emergency Medicine; PCP Family Medicine; Visit Provider Internal Medicine
DX: J10.00 Influenza due to other identified influenza virus with unspecified type of pneumonia (principal); I50.33 Acute on chronic diastolic (congestive) heart failure; J96.01 Acute respiratory failure with hypoxia; J44.0 Chronic obstructive pulmonary disease with (acute) lower respiratory infection; J44.1 Chronic obstructive pulmonary disease with (acute) exacerbation; K21.9 Gastro-esophageal reflux disease without esophagitis; R00.1 Bradycardia, unspecified; G47.33 Obstructive sleep apnea (adult) (pediatric); F17.210 Nicotine dependence, cigarettes, uncomplicated; G40.909 Epilepsy, unspecified, not intractable, without status epilepticus; Z99.81 Dependence on supplemental oxygen; F41.8 Other specified anxiety disorders
CPT/HCPCS: 36415; 36600; 71045; 71275; 80048; 80053; 81001; 82375; 82805; 83050; 83605; 83880; 85018; 85025; 85055; 85610; 85730; 87040; 87637; 87641; 93005; 94002; 94003; 94618; 94640; 94762; 96365; 96367; 96375; 96376; 97165; 99285; A9270; C8929; G0378; J0456; J0696; J1650; J1938; J2919; Q9957; Q9967

== ENCOUNTER 2024-11-27 13:55 | Outpatient (CLI) | payer MEDICARE, SELFPAY ==
--- NOTE | ~2024-11-27 | XR_ITS ---
CHEST RADIOGRAPH, PA AND LATERAL CLINICAL HISTORY: J18.9 - Pneumonia, unspecified organism . COMPARISON: 09/29/2024 TECHNIQUE: PA and lateral views of the chest. FINDINGS The cardiomediastinal silhouette is unremarkable. Improved aeration of the right mid to lower lung field when compared with previous examination. Near complete resolution of the increased interstitial pattern, seen on previous study. IMPRESSION: Near complete resolution of the infiltrative findings in the right mid to lower lung field, as detail ed above. Reviewed, dictated and finalized at location A. IMPRESSION: Near complete resolution of the infiltrative findings in the right mid to lower lung field, as detailed above.
--- OUTSIDE RECORDS SUMMARY | 2024-11-27 13:59 | XMS_ITS | Data Portability ---
Author Organization [place] - [facility], Main Office Address [address] [place] [address] Assessment No assessment recorded. Plan of Treatment Reminders Order Date Submit Date Provider Last Modified By Organization Details Last Modified Time Details Appointments None recorded. Lab None recorded. Referral None recorded. Procedures None recorded. Surgeries None recorded. Imaging CT, chest, w/o contrast - approved [id number] 05/03/23-10/29 023 [email or web address] Not available 09:41:47 Medication Orders Anoro Ellipta 62.5 mcg-25 mcg/actuati on powder for inhalation 2022 023 [facility] [address] [place], [address], 3 14:49:20 albuterol sulfate HFA 90 mcg/actuati on aerosol inhaler 2022 023 [facility] [address] [place], [address], 3 14:49:18 Anoro Ellipta 62.5 mcg-25 mcg/actuati on powder for inhalation 2022 023 [facility] [address] [place], [address], 3 15:28:20 albuterol sulfate HFA 90 mcg/actuati on aerosol inhaler 2022 023 [facility] [address] [place], [address], 15:28:17 Patient TargetsNo targets recorded. Patient Instructions Encounter Date Encounter Id Patient Instructions Last Modified By Organization Details Last Modified Time 10/29/2022 [id number] complete PFT w/ post bronchodilator spirometry* TEJAL Not available 11/19/2022 15:14:03 six minute walk test* - November 16, 2022 arrive at 2:30pm apt 3pm [email or web address] Not available 06/05/2023 10:53:14 Reason for Referral None Reported. Results Created Date Observation Date Name Description Value Unit Range Abnormal Flag Note LastModifiedBy Organization Detail LastModifiedTime 09/23/1910/03/2021 QUANT IFERO N(R)- TB GOLD PLUS, 1 TUBE quantiferon( R)-TB gold plus, 1 tube negati ve negati ve normal Negat lalo test resul t. M. tuber culos is compl ex infec tion unlik harmony. Not Available [address], [address], 10/03/2021 14:46:45 09/23/19 22 10/03/2021 QUANT IFERO N(R)- TB GOLD PLUS, 1 TUBE nil 0.01 IU/mL normal Not Available [address], [address], 10/03/2021 14:46:45 09/23/19 22 10/03/2021 QUANT IFERO N(R)- TB GOLD PLUS, 1 TUBE mitogen-nil >10.00 IU/mL normal Not Available [address], [address], 10/03/2021 14:46:45 09/23/19 22 10/03/2021 QUANT IFERO N(R)- TB GOLD PLUS, 1 TUBE TB1-nil 0.01 IU/mL normal Not Available [address], [address], 10/03/2021 14:46:45 09/23/19 22 10/03/2021 QUANT IFERO [...] refer to https ://ed yanetati on.qu yuki Mix & Meet/f aq/FA Q204 (This link is being provi ded for infor francia greene/ susana goodson purpo ses only. ) Not Available [facility] [address], [address], 10/03/2021 14:46:45 09/23/19 22 10/03/2021 B TYPE [...] ol. 2002; 40:97 6-982 . Not Available [facility] [id number] [place] [address], [place], [address], 10/03/2021 14:46:45 09/23/19 22 10/03/2021 ALPHA -1-AN TITRY PSIN (AAT) PHENO TYPE cizol-0-beee trypsin (aat) phenotype see note THIS PATIE [...] defic ient MZ pheno type. Not Available [address], [address], 10/03/2021 14:46:44 09/23/19 22 10/03/2021 ALPHA -1-AN TITRY PSIN QN [id number]-9-[id number] trypsin qn 169 mg/dL 83-199 normal Not Available [address], [address], 10/03/2021 14:46:44 09/23/19 22 10/03/2021 EOSIN OPHIL COUNT (B) white blood cell count 10.3 thous and/u L 3.8-10 .8 normal Not Available [address], [address], 10/03/2021 14:46:43 09/23/19 22 10/03/2021 EOSIN OPHIL COUNT (B) absolute eosinophils 196 cells /uL 15-500 normal Not Available [address], [address], 10/03/2021 14:46:43 09/23/19 22 10/03/2021 EOSIN OPHIL COUNT (B) eosinophils 1.9 % normal Not Available [address], [address], 10/03/2021 14:46:43 09/23/19 22 10/03/2021 IMMUN OGLOB ULIN G SUBCL ASSES PANEL immunoglobul in g subclass 1 588 mg/dL 382-92 9 Not Available [address], [address], 10/03/2021 14:46:43 09/23/19 22 10/03/2021 IMMUN OGLOB ULIN G SUBCL ASSES PANEL immunoglobul in g subclass 2 518 mg/dL 241-70 0 Not Available [address], [address], 10/03/2021 14:46:43 09/23/19 22 10/03/2021 IMMUN OGLOB ULIN G SUBCL ASSES PANEL immunoglobul in g subclass 3 121 mg/dL 22-178 Not Available [address], [address], 10/03/2021 14:46:43 09/23/19 22 10/03/2021 IMMUN OGLOB ULIN G SUBCL ASSES PANEL immunoglobul in g subclass 4 116.9 mg/dL 4.0-86 .0 high Not Available [address], [address], 10/03/2021 14:46:43 09/23/19 22 10/03/2021 IMMUN OGLOB ULIN G SUBCL ASSES PANEL immunoglobul in g, serum 1367 mg/dL 600-15 40 Not Available [address], [address], 10/03/2021 14:46:43 09/23/19 22 10/03/2021 MEASL ES, [...] perlar wen liang e refer to http: //niurka nurQue stDia gnost ics.c om/fa q/FAQ 162 (This link is being provi ded for infor francia greene/ educalvin casper l purpo ses only. ) Not Available [address], [address], 10/03/2021 14:46:42 09/23/19 22 10/03/2021 MEASL ES, [...] tion with mumps virus . Not Available [facility] [address], [address], 10/03/2021 14:46:42 09/23/19 22 10/03/2021 MEASL ES, [...] with rubel la virus . Not Available [facility] [address], [address], 10/03/2021 14:46:42 09/23/19 22 10/03/2021 INTER PRETA [...] cteri stics have been deter mined by [facility]. It has not been clear ed or appro rona by the U.S. Food and Drug Admin istra tion. This assay has been valid ated pursu ant to the CLIA regul ation s and is used for clini lamonte purpo ses. Not Available [facility] [address] [address] [place], [address], 10/03/2021 14:46:42 09/23/19 22 10/03/2021 RESPI RATOR Y ALLER GY PROFI LE REGIO N VIII dermatophago ides pteronyssinu s (D1) IgE <0.10 kU/L normal Not Available [facility] [address] [address] [place], [address], 10/03/2021 14:46:41 09/23/19 22 10/03/2021 RESPI RATOR Y ALLER GY PROFI LE REGIO N VIII class 0 Not Available [facility] [address] [address] [place], [address], 10/03/2021 14:46:41 09/23/19 22 10/03/2021 RESPI RATOR Y [employer]ER GY [facility] N VIII dermatophago ides farinae (D2) IgE 0.12 kU/L high Not Available [facility] [address] [address] [place], [address], 10/03/2021 14:46:41 09/23/19 22 10/03/2021 RESPI RATOR Y ALLER GY PROFI LE REGIO N VIII class 0/1 Not Available [address], [address], 10/03/2021 14:46:41 09/23/19 22 10/03/2021 RESPI RATOR Y [employer]ER GY [employer]FI LE REGIO N VIII penicillium notatum (M1) IgE <0.10 kU/L normal Not Available [address], [address], 10/03/2021 14:46:41 09/23/19 22 10/03/2021 RESPI RATOR Y ALLER GY PROFI LE REGIO N VIII class 0 Not Available [address], [address], 10/03/2021 14:46:41 09/23/19 22 10/03/2021 RESPI RATOR Y [employer]ER GY [employer]FI LE REGIO N VIII cladosporium herbarum (M2) IgE <0.10 kU/L normal Not Available [address], [address], 10/03/2021 14:46:41 09/23/19 22 10/03/2021 RESPI RATOR Y ALLER GY PROFI LE REGIO N VIII class 0 Not Available [address], [address], 10/03/2021 14:46:41 09/23/19 22 10/03/2021 RESPI RATOR Y ALLER GY PROFI LE REGIO N VIII aspergillus fumigatus (M3) IgE <0.10 kU/L normal Not Available [address], [address], 10/03/2021 14:46:41 09/23/19 22 10/03/2021 RESPI RATOR Y ALLER GY PROFI LE REGIO N VIII class 0 Not Available [address] [address] [place], [address], 10/03/2021 14:46:41 09/23/19 22 10/03/2021 RESPI RATOR Y ALLER GY PROFI LE REGIO N VIII alternaria alternata (M6) IgE <0.10 kU/L normal Not Available [address], [address], 10/03/2021 14:46:41 09/23/19 22 10/03/2021 RESPI RATOR Y ALLER GY [employer]FI LE REGIO N VIII class 0 Not Available [address], [address], 10/03/2021 14:46:41 09/23/19 22 10/03/2021 RESPI RATOR Y ALLER GY PROFI LE REGIO N VIII CAT dander (E1) IgE <0.10 kU/L normal Not Available [address] [address] [place], [address], 10/03/2021 14:46:41 09/23/19 22 10/03/2021 RESPI RATOR Y ALLER GY PROFI LE REGIO N VIII class 0 Not Available [address], [address], 10/03/2021 14:46:41 09/23/19 22 10/03/2021 RESPI RATOR Y [employer]Y [employer] N VIII dog dander (E5) IgE <0.10 kU/L normal Not Available [address], [address], 10/03/2021 14:46:41 09/23/19 22 10/03/2021 RESPI RATOR Y [facility]Y [facility] N VIII class 0 Not Available [address], [address], 10/03/2021 14:46:41 09/23/19 22 10/03/2021 RESPI RATOR Y [facility]ER [facility]Y [facility] N VIII cockroach (I6) IgE <0.10 kU/L normal Not Available [address], [address], 10/03/2021 14:46:41 09/23/19 22 10/03/2021 RESPI RATOR Y ALLER GY [facility] N VIII class 0 Not Available [address], [address], 10/03/2021 14:46:41 09/23/19 22 10/03/2021 RESPI RATOR Y ALLER GY [facility]FI LE REG[facility] N VIII maple (box elder) (T1) IgE <0.10 kU/L normal Not Available [address], [address], 10/03/2021 14:46:41 09/23/19 22 10/03/2021 RESPI RATOR Y ALLER GY [facility] N VIII class 0 Not Available [address], [address], 10/03/2021 14:46:41 09/23/19 22 10/03/2021 RESPI RATOR Y ALLER GY [facility]FI LE REGIO N VIII mountain cedar (T6) IgE <0.10 kU/L normal Not Available [address], [address], 10/03/2021 14:46:41 09/23/19 22 10/03/2021 RESPI RATOR Y ALLER GY [employer]FI LE REG[facility] N VIII class 0 Not Available [address], [address], 10/03/2021 14:46:41 09/23/19 22 10/03/2021 RESPI RATOR Y [employer]Y [employer]FI [employer] [facility] N VIII walnut tree (T10) IgE <0.10 kU/L normal Not Available [address] [address] [address] , [place], [address], 10/03/2021 14:46:41 09/23/19 22 10/03/2021 RESPI RATOR Y ALLER GY PROFI LE REGIO N VIII class 0 Not Available [address] [address] [place], [address], 10/03/2021 14:46:41 09/23/19 22 10/03/2021 RESPI RATOR Y [employer]ER [employer]Y [employer]FI [employer] [facility] N VIII sycamore (T11) IgE <0.10 kU/L normal Not Available [address] [address] [place], [address], 10/03/2021 14:46:41 09/23/19 22 10/03/2021 RESPI RATOR Y ALLER GY PROFI LE REGIO N VIII class 0 Not Available [address] [address] [facility] [place], [address], 10/03/2021 14:46:41 09/23/19 22 10/03/2021 RESPI RATOR Y ALLER GY PROFI LE REGIO N VIII cottonwood (T14) IgE <0.10 kU/L normal Not Available [address] [address] [place], [address], 10/03/2021 14:46:41 09/23/19 22 10/03/2021 RESPI RATOR Y ALLER GY PROFI LE REGIO N VIII class 0 Not Available [facility] [address] [address] [place], [address], 10/03/2021 14:46:41 09/23/19 22 10/03/2021 RESPI RATOR Y ALLER GY PROFI LE REGIO N VIII white saira (T15) IgE <0.10 kU/L normal Not Available [address] [address] [place], [address], 10/03/2021 14:46:41 09/23/19 22 10/03/2021 RESPI RATOR Y ALLER GY PROFI LE REGIO N VIII class 0 Not Available [address], [address], 10/03/2021 14:46:41 09/23/19 22 10/03/2021 RESPI RATOR Y ALLER GY PROFI LE REGIO N VIII oak (T7) IgE <0.10 kU/L normal Not Available [address], [address], 10/03/2021 14:46:41 09/23/19 22 10/03/2021 RESPI RATOR Y ALLER GY PROFI LE REGIO N VIII class 0 Not Available [address], [address], 10/03/2021 14:46:41 09/23/19 22 10/03/2021 RESPI RATOR Y ALLER GY PROFI LE REGIO N VIII elm (T8) IgE <0.10 kU/L normal Not Available [address], [address], 10/03/2021 14:46:41 09/23/19 22 10/03/2021 RESPI RATOR Y ALLER GY PROFI LE REGIO N VIII class 0 Not Available [address], [address], 10/03/2021 14:46:41 09/23/19 22 10/03/2021 RESPI RATOR Y ALLER GY PROFI LE REGIO N VIII hickory/peca n tree (T22) IgE <0.10 kU/L normal Not Available [address], [address], 10/03/2021 14:46:41 09/23/19 22 10/03/2021 RESPI RATOR Y ALLER GY PROFI LE REGIO N VIII class 0 Not Available [address] [address] [place], [address], 10/03/2021 14:46:41 09/23/19 22 10/03/2021 RESPI RATOR Y ALLER GY [facility]FI LE REG[facility] N VIII white mulberry (T70) IgE <0.10 kU/L normal Not Available [address], [address], 10/03/2021 14:46:41 09/23/19 22 10/03/2021 RESPI RATOR Y ALLER GY PROFI LE REGIO N VIII class 0 Not Available [address], [address], 10/03/2021 14:46:41 09/23/19 22 10/03/2021 RESPI RATOR Y ALLER GY [facility]FI LE REGIO N VIII bermuda grass (g2) IgE <0.10 kU/L normal Not Available [address], [address], 10/03/2021 14:46:41 09/23/19 22 10/03/2021 RESPI RATOR Y ALLER GY PROFI LE REGIO N VIII class 0 Not Available [address], [address], 10/03/2021 14:46:41 09/23/19 22 10/03/2021 RESPI RATOR Y ALLER GY [facility]FI [facility] N VIII gabby grass (g6) IgE 3.52 kU/L high Not Available [address], [address], 10/03/2021 14:46:41 09/23/19 22 10/03/2021 RESPI RATOR Y [employer]ER [employer]Y [employer]FI [facility] N VIII class 3 Not Available [address], [address], 10/03/2021 14:46:41 09/23/19 22 10/03/2021 RESPI RATOR Y [facility] N VIII common ragweed (short) (W1) IgE 1.19 kU/L high Not Available [address], [address], 10/03/2021 14:46:41 09/23/19 22 10/03/2021 RESPI RATOR Y [facility] N VIII class 2 Not Available [address], [address], 10/03/2021 14:46:41 09/23/19 22 10/03/2021 RESPI RATOR Y ALLER GY PROFI LE REGIO N VIII rough pigweed (W14) IgE <0.10 kU/L normal Not Available [facility] [address], [address], 10/03/2021 14:46:41 09/23/19 22 10/03/2021 RESPI RATOR Y ALLER GY [employer]FI [facility] REG[facility] N VIII class 0 Not Available [address], [address], 10/03/2021 14:46:41 09/23/19 22 10/03/2021 RESPI RATOR Y ALLER GY [facility]FI [facility] REG[facility] N VIII tuvaluan thistle (W11) IgE <0.10 kU/L normal Not Available [address], [address], 10/03/2021 14:46:41 09/23/19 22 10/03/2021 RESPI RATOR Y [facility] N VIII class 0 Not Available [address], [address], 10/03/2021 14:46:41 09/23/19 22 10/03/2021 RESPI RATOR Y [facility]Y [facility]FI [facility] N VIII rough land elder (W16) IgE <0.10 kU/L normal Not Available [address] [address] [place], [address], 10/03/2021 14:46:41 09/23/19 22 10/03/2021 RESPI RATOR Y ALLER GY [facility]FI [facility] N VIII class 0 Not Available [address], [address], 10/03/2021 14:46:41 09/23/19 22 10/03/2021 RESPI RATOR Y [employer]ER GY [employer]FI LE REG[facility] N VIII mouse urine proteins (E72) IgE <0.10 kU/L normal Not Available [address], [address], 10/03/2021 14:46:41 09/23/19 22 10/03/2021 RESPI RATOR Y [facility] N VIII class 0 Not Available [address], [address], 10/03/2021 14:46:41 09/23/19 22 10/03/2021 RESPI RATOR Y [employer] N VIII immunoglobul in E 149 kU/L <or=11 4 high Not Available [address], [address], 10/03/2021 14:46:41 10/27/19 22 10/19/2021 noctu rnal pulse oxime try* No observ ation record ed. [id number] [facility] [address] [facility] [address], [place], [address], 08/29/2022 05:03:40 10/27/19 22 08/31/2021 CPAP compl iance * No observ ation record ed. [id number] [facility] [address] [place] [address], [place], [address], 08/29/2022 05:03:40 01/03/20 22 12/28/2021 polys omnog kenzie, titra tion study No observ ation record ed. [id number] Not Available 08/29/2022 05:03:40 01/11/20 22 01/29/2020 polys omnog kenzie, titra tion study No observ ation record ed. [id number] [facility] [address] [place], [address], 08/29/2022 05:03:40 04/05/20 22 04/03/2022 LDCT, chest , for lung cance r scree gonzalez No observ ation record ed. [id number] [facility] [address] [place], [address], 08/29/2022 05:03:40 04/05/20 22 02/14/2022 oxime try monit oring overn ight No observ ation record ed. [id number] Not Available 08/29/2022 05:03:40 04/05/20 22 03/03/2022 oxime try monit oring overn ight No observ ation record ed. [id number] Not Available 08/29/2022 05:03:40 04/11/20 22 04/06/2022 , [facility] ardio gram, trans thora cic, compl ete, w/ color flow No observ ation record ed. [id number] [facility], [place], [address], 08/29/2022 05:03:40 10/16/19 23 10/12/2022 CT, chest , w/o contr ast No observ ation record ed. [email or web address] Not Available 16:36:01 11/20/19 23 11/16/2022 compl ete PFT w/ post [facility] hodil ator mayi metry * No observ ation record ed. [email or web address] [facility] [address] [place] [address] [facility], [place], [address], 12/07/2022 14:31:18 12/04/19 23 11/16/2022 compl ete PFT w/ post [facility] hodil ator mayi metry * No observ ation record ed. [email or web address] [facility] ([facility]) [address], [place], [address], 12/07/2022 14:31:18 05/10/20 23 05/09/2023 CT, chest , w/o contr ast No observ ation record ed. [email or web address] [address], [place], [address], 05/14/2023 14:26:53 Result Notes None recorded. Problems Name Problem SNOMED Code Status Onset Date Resolution Date Notes Provider Name and Address Organization Details Recorded Time Chronic obstructi ve pulmonary disease 84128950 Active 2019 Not Available [facility] 3 04:51:57 Hypoxia 624582963 Active 2019 Not Available [facility] 3 04:51:57 Solitary nodule of lung 723637311 Active 2021 [facility] Available [facility] 3 04:51:58 Celluliti s of lower limb 862165725 Active 2019 Not Available [facility] 3 04:51:58 Nicotine dependenc e 93313235 Active 2021 Not Available [facility] 3 04:51:58 Dyspnea on exertion 19725236 Active 2019 Not Available [facility] 3 04:51:58 Obstructi ve sleep apnea syndrome 87473978 Active 2021 Not Available [facility] 3 04:51:58 Ex-smoker 3860064 Completed 201911/02/2020 Not Available [facility] 3 04:51:58 Dependenc e on supplemen luz oxygen 47038507102 7 Active 2019 Not Available [facility] 3 04:51:58 Problem Notes None recorded. Medical Equipment None Reported. [...] % 93 % 74 /min 97.2 [degF] 72361.0 8 g 132 mm[Hg] 70 mm[Hg] Not Available [facility] 3 04:47:11 Date Recorded Body height Body mass index (BMI) Body weight Body temperature Heart rate Oxygen saturation Oxygen saturation in Arterial blood by Pulse oximetry Inhaled oxygen flow rate Systolic blood pressure Diastolic blood pressure Provider Name and Address Organization Details Last Updated DateTime 3 180.34 cm 33.5 kg/m2 027435. 17 g 97.2 [degF] 64 /min 90 % 90 % 3 L/min 118 mm[Hg] 64 mm[Hg] Tiffany Clark MA [place] - [facility] 3 14:59:54 Date Recorded Body mass index (BMI) Body height Oxygen saturation Oxygen saturation in Arterial blood by Pulse oximetry Heart rate Body temperature Body weight Systolic blood pressure Diastolic blood pressure Provider Name and Address Organization Details Last Updated DateTime 2 33.2 kg/m2 180.34 cm 97 % 97 % 67 /min 97.3 [degF] 297743. 98 g 110 mm[Hg] 60 mm[Hg] Not Available [facility] 3 04:47:11 Date Recorded Body mass index (BMI) Body height Oxygen saturation Oxygen saturation in Arterial blood by Pulse oximetry Heart rate Body weight Systolic blood pressure Diastolic blood pressure Provider Name and Address Organization Details Last Updated DateTime 2 33.5 kg/m2 180.34 cm 93 % 93 % 66 /min 745518. 17 g 140 mm[Hg] 70 mm[Hg] Not Available [facility] 3 04:47:11 Date Recorded Body height Body mass index (BMI) Body weight Heart rate Oxygen saturation Oxygen saturation in Arterial blood by Pulse oximetry Inhaled oxygen flow rate Systolic blood pressure Diastolic blood pressure Provider Name and Address Organization Details Last Updated DateTime 3 180.34 cm 33.2 kg/m2 096977. 98 g 78 /min 91 % 91 % 3 L/min 110 mm[Hg] 60 mm[Hg] Tiffany Clark MA [place] - [facility] 3 14:08:15 Social History Question Answer Notes LastModified by Organizat ion Details LastModified Time Tobacco Smoking Status Current Every Day Smoker Not Available [facility] 08/29/2022 04:21:38 What Is Your Level Of Caffeine Consumption? Moderate [id number] Information not available 08/29/2022 In The 14 Days Before Symptom Onset, Have You Had Close Contact With A Laboratory-confir med COVID-19 While That Case Was Ill? No [id number] Information not available 08/29/2022 In The 14 Days Before Symptom Onset, Have You Had Close Contact With A Person Who Is Under Investigation For COVID-19 While That Person Was Ill? No [id number] Information not available 08/29/2022 What Was The Date Of Your Most Recent Tobacco Screening? 03/07/2021 [id number] Information not available 08/29/2022 What Is Your Current Pack Years? 30ormorepac kyears [id number] Information not available 08/29/2022 Do You Have Any Pets? No [id number] Information not available 08/29/2022 At What Age Did You Start Smoking Tobacco? 12 14-30 Then Restarted At 48 Y/o [id number] Information not available 08/29/2022 How Much Tobacco Do You Smoke? 0.25 PPD [id number] Information not available 08/29/2022 Have You Recently Traveled Abroad? No [id number] Information not available 08/29/2022 Sex: Unknown Functional Status Question Answer Note LastModified by Organizat ion Details LastModified Time Do you use any illicit or recreational drugs? No [id number] Information not available 08/29/2022 What is your level of alcohol consumption? Occasional [id number] Information not available 08/29/2022 Do you or have you ever used smokeless tobacco? Never used smokeless tobacco [id number] Information not available 08/29/2022 Do you or have you ever used e-cigarettes or vape? Never used electronic cigarettes [id number] Information not available 08/29/2022 Mental Status None recorded. Family History Nothing Reported. Medical History No medical history recorded. Immunizations Vaccine Type Date Status Note Provider Nam e and Address Organization Details Recorded Time COVID-19, mRNA, LNP-S, PF, 30 mcg/0.3 mL dose 09/13/2020 completed Not Available [facility] 3 05:02:46 COVID-19, mRNA, LNP-S, PF, 30 mcg/0.3 mL dose 08/17/2020 completed Not Available [facility] 3 05:02:46 Influenza, high-dose, quadrivalent, PF 05/01/2022 completed Not Available [facility] 3 05:02:46 Past Encounters Encounter ID Performer Location Encounter Start Date Encounter Closed Date Diagnosis/Indication Diagnosis SNOMED-CT Code Diagnosis ICD10 Code Diagnosis Note [id number] [facility] [place] [address] [place] [address] 11/02/2020 00:00:00 11/02/2020 14:03:51 [id number] [facility] [place] [address] [place] [address] 03/07/2021 00:00:00 03/07/2021 12:04:58 [id number] [facility] [place] [address] [place] [address] 09/05/2021 00:00:00 09/05/2021 14:51:20 [id number] ROMULO Reis [facility] [place] [address] [place] [address] 03/27/2022 00:00:00 03/27/2022 14:48:04 [id number] ROMULO Ries [facility] [place] [address] [place] [address] 05/01/2022 00:00:00 05/01/2022 17:00:49 [id number] Claudia Forrest [facility] [place] [address] [place] [address] 10/29/2022 14:50:14 10/29/2022 16:12:15 Chronic obstructive pulmonary disease 51733522 J44.9 Last PFT in 2019 with FEV1 53%TLC 149DLCO 44Order to repeat todayStabl e on Anoro, continue.I Nstructed on techniqueR rj REDMAN PRN - discussed indication s for useDiscuss ed reportable signs and symptoms.Jaswinder mariee is current on COVID19 vaccinesNe bulizer for PRN useRTO in 6 months, PRN for concerns Solitary n odule of lung 213386835 R91.1 12mm to RLL, noncalcifi edRepeat CT due 09/2022, unchanged noduleRepe at in 6 months - due 03/2023 Dyspnea on exertion 6084 5006 R06.09 Improved with Anoro and oxygenInst ructed on 100% compliance with oxygenEcho cardiogram with bubble study completed - no shuntEF 60-65Smoki ng cessationW Eight loss Dependence on supplemental oxygen 0950806961 07 Z99.81 He has good use and clinical benefitRep eat 6MWT as above Obstructiv e sleep apnea syndrome 96681517 G47.33 Download on 16CM H2O with 100% use and AHI 0.4He has good use and clinical benefit Nicotine dependence 5629 4008 Z87.891 Smoking cessation counseling and techniques reviewed at length. L iterature reviewed.A void triggers, support groups.Dis traction techniques Greater than 3 but less than 10 minutes spent discussing cessation. Declines NRT.Discus sed Rx options if needed in the future. [id number] Claudia Forrest [facility] Pulmonolo gy [place] [address] [place] [address] 05/03/2023 13:59:49 05/03/2023 15:09:02 Chronic obstructive pulmonary disease 41007723 J44.9 Last PFT in 2019 with FEV1 53%TLC 149DLCO 44Repeated 10/2022 with ratio 46 and FEV1 54DLCO 41 adjustedSt able on Anoro, continue.I nstructed on techniqueR escue MDI PRN - discussed indication s for useDiscuss ed reportable signs and symptoms.H jaylene is current on COVID19 vaccinesNe bulizer for PRN useHe is current on pneumonia, flu, RSV and COVID vaccines Solitary n odule of lung 844809421 R91.1 12mm to RLL, noncalcifi edRepeat CT due 09/2022, unchanged noduleRepe at due 03/2023, he has not completed thisStaff scheduled today Dyspnea on exertion 6084 5006 R06.09 Improved with Anoro and oxygenInst ructed on 100% compliance with oxygenEcho cardiogram with bubble study completed 03/2022- no shuntEF 60-65Smoki ng cessationW eight lossRecomm end PRCT as above Dependence on supplemental oxygen [id number] 07 Z99.81 He has good use and clinical benefitRep eat 6MWT as above with 4 liters required with activityNe w order for POC, his currently only goes up to 3 litersCont inue 6 liters at night bleed in to PAP Obstructiv e sleep apnea syndrome [id number] G47.33 Download today on 16CM H2O with [...] ID Guarantor Name 10/29/2022 1 [employer] (MEDICARE REPLACEMENT/ ADVANTAGE - PPO) [id number] Demetrio Thapa [id number] Demetrio Thapa 05/03/2023 1 [employer] (MEDICARE REPLACEMENT/ ADVANTAGE - PPO) - Demetrio Thapa [id number] Demetrio Thapa Notes Date Note Type Note Provider Name and Address Organization Details Recorded Time 10/29/2022 text/html Mr Thapa pres ents today to follow up on COPD, [...] smoke about 3/4 PPD. ROMULO Reis [address] [employer], [place], [address], [employer] 10/29/2022 16:49:27 05/03/2023 text/html Mr Thapa pres ents today to follow up on COPD, [...] loss.Had all testing except CT chest completed ROMULO Reis [address], [address], [place], [address], [employer] 05/03/2023 16:27:18
--- OUTSIDE RECORDS SUMMARY | 2024-11-27 13:59 | XMS_ITS | Clinical Summary ---
Author Organization [facility] Address [address] [place] [address] Care Team Providers Care Salesperson Parts Name Role Phone Po Anderson MD Primary Care Provider [phone] Source Comments [facility] [employer],non-owned Affiliates and Associated Physician Practices is amultiple site organization consisting of ambulatory clinics and hospital sitesin [place] and [place]. This disclosure is being madepursuant to the Care Everywhere program and may not contain all information available regarding this patient. Last updated 18.[facility] [employer] Immunizations Immunization Administration Dates Next Due INFLUENZA VACCINE, HIGH-DOSE , QUADR. (FLUZONE HIGH-DOSE QUADRIVALENT; 65Y+), 0.7 ML (HD-[id number]) 03/30/2020 Social History Tobacco Use Types Packs/Day Years Used Date Smoking Tobacco: Never Assessed Sex and Gender Information Value Date Recorded Sex Assigned at Not on file Legal Sex Male 12:43 PM CDT Gender Identity Not on file Sexual Orientation [...] VACCINE (1 of 2) 2003 COVID-19 VACCINE (1 - 2023-2 5 season) 2024 DEPRESSION SCREENING 07/01/2024 INFLUENZA VACCINE (Season Ended) 2025 03/30/20 Respiratory Syncytial Virus (RSV) Vaccine Pt: or [...] on patient's age to complete this topic Insurance [facility] Address: [facility] [id number] [place] [address] AET Care Teams Salesperson Parts Relationship Specialty Start Date End Date Po Anderson MD [address] [place] [address] PCP - General 08/31/22
--- OUTSIDE RECORDS SUMMARY | 2024-11-27 13:59 | XMS_ITS | Referral Summary ---
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 Gender Identity Not on file Sexual Orientation [...] 10:03 AM CDT Height 177.7 cm (5' 9.96) 08/04/2020 1:18 PM CS T Body Mass Index 34.04 08/04/2020 1:18 PM BOX CHIPPER Plan of Treatment Not on file Procedures Procedure Name Priority Date/Time Associated Diagnosis Comments CT CHEST ABDOMEN PELVIS W CONTRAST Schedule TRACY, Read TRACY (Appt Today, Awaiting Results) 10/27/2020 9:03 AM CDT Lymphadenopathy HEPATITIS C ANTIBODY Routine 08/04/2020 12:49 PM BOX CHIPPER Lymphadenopathy from Last 3 Months or Most [...] * Hepatitis C antibody (08/04/2020 12:49 PM BOX CHIPPER) Hep C Ab Nonreactive Nonreactive [facility] Comment:Antibodies to HCV no t detected. Does NOT exclude the possibility of recent exposure to HCV. Blood specimen (specimen) 08/04/2020 12:49 PM BOX CHIPPER 08/04/2020 1:34 PM BOX CHIPPER Amber Wagner MD LAB MICROBIOLOGY - GENERAL ORDERABLES Edited Result - Final R[facility] Department [place] [address] from Last 3 Months or Most Recently Relevant to Health Maintenance Insurance MEDICARE [facility] Address: [facility] [address] [place] [address] Care Teams Draw In Hand Relationship Specialty Start Date End Date Po Anderson MD [address] [place] [address] PCP - General Family Medicine 07/20/20
--- OUTSIDE RECORDS SUMMARY | 2024-11-27 13:59 | XMS_ITS | Clinical Summary ---
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 Gender Identity Not on file Sexual Orientation [...] Body Mass Index 34.04 08/04/2020 1:18 PM WASH OPERATOR Plan of Treatment Health Maintenance Due Date Last Done Comments Colon Cancer Screening-Colonoscopy 1955 Depression Screening 1955 Fall Risk Assessment 1955 DTaP/Tdap/Td Vaccine (1 - Tdap) 1964 Hepatitis B Screening 1971 Pneumococcal vaccine 65+ (1 of 2 - PCV) 1972 Zoster Vaccine (1 of 2) 1972 Well Visit 65+ 2018 Covid-19 Vaccine (3 - Pfizer risk series) 10/11/2020 09/13/2020, 08/23/2020 Influenza Vaccine (Season Ended) 2025 03/30/20 20, 05/03/2018 Hepatitis C Screening Completed 08/04/2020 Abdominal Aortic Aneurysm (AAA) Screen Completed Procedures Procedure Name Priority Date/Time Associated Diagnosis Comments CT CHEST ABDOMEN PELVIS W CONTRAST Schedule TRACY, Read TRACY (Appt Today, Awaiting Results) 10/27/2020 9:03 AM CDT Lymphadenopathy HEPATITIS C ANTIBODY Routine 08/04/2020 12:49 PM WASH OPERATOR Lymphadenopathy from Last 3 Months or Most [...] * Hepatitis C antibody (08/04/2020 12:49 PM WASH OPERATOR) Hep C Ab Nonreactive Nonreactive [facility] Comment:Antibodies to HCV no t detected. Does NOT exclude the possibility of recent exposure to HCV. Blood specimen (specimen) 08/04/2020 12:49 PM WASH OPERATOR 08/04/2020 1:34 PM WASH OPERATOR Amber Wagner MD LAB MICROBIOLOGY - GENERAL ORDERABLES Edited Result - Final RICK MUSE [facility] [place] [address] from Last 3 Months or Most Recently Relevant to Health Maintenance Insurance [facility] MEDICARE [facility] MEDICARE Address: [facility] [id number] [place] [phone] Care Teams Mask Designer Relationship Specialty Start Date End Date Po Anderson MD [address] [place] [id number] PCP - General Family Medicine 07/20/20
== END 2024-11-27 13:56 | disposition home or self-care (01) ==
PROVIDERS: PCP Family Medicine; Visit Provider Nurse Practitioner Family
DX: J18.9 Pneumonia, unspecified organism (principal)
CPT/HCPCS: 71046

== ENCOUNTER 2025-05-19 10:28 | Outpatient (CLI) | payer MEDICARE, SELFPAY ==
--- NOTE | ~2025-05-19 | CT_ITS ---
EXAMINATION:CT lung screening DATE: 05/19/2025 10:47 INDICATION: Screening TECHNIQUE: Computed tomography (CT) of the chest was performed without intravenous contrast. The dose-length product (DLP) was 373.01 mGy-cm. COMPARISON: October 02, 2024 and 2022. FINDINGS: Lung bases are significantly improved inflation and aeration with only minimal residual atelectatic and/or fibrotic appearing changes. No focal acute process. 10 mm nodule right lung base image 99 series 4 stable for greater than 2 years radiographically benign. Central large airways are patent. Mild mediastinal lymphadenopathy not grossly changed. No acute process seen in the visualized portions of the upper abdomen. Chronic strandy appearing changes in the mid mesentery have been present on essentially all exams. Diffuse degenerative changes throughout the spine, and chronic 60% anterior compression fracture of L1 unchanged. Mild gynecomastia, left greater than right. No acute process in the extrathoracic soft tissues. IMPRESSION: 1. Improved aeration of lung bases with no new nodules or masses. Radiographically benign right lung base nodule and lymphadenopathy. Correlate with follow-up low-dose lung cancer screening chest CT in 12 months if patient has risk factors for bronchogenic malignancy. 2. Other findings as above. Reviewed, dictated and finalized at location A. [facility] IMPRESSION: 1. Improved aeration of lung bases with no new nodules or masses. Radiographica lly benign right lung base nodule and lymphadenopathy. Correlate with follow-up low-dose lung cancer screening chest CT in 12 months if patient has risk facto rs for bronchogenic malignancy. 2. Other findings as above.
--- OUTSIDE RECORDS SUMMARY | 2025-05-19 15:02 | XMS_ITS | Clinical Summary ---
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
--- OUTSIDE RECORDS SUMMARY | 2025-05-19 15:02 | XMS_ITS | Clinical Summary ---
Author Organization [facility] Address [address] [place] [address] Care Team Providers Care Hearing Aid Dispenser Name Role Phone Po Anderson MD Primary Care Provider [phone] Source Comments [facility] [employer],non-owned Affiliates and Associated Physician Practices is amultiple site organization consisting of ambulatory clinics and hospital sitesin [place], [place], [place] and [place]. This disclosure is being madepursuant to the Care Everywhere program and may not contain all information available regarding this patient. Last updated 18.[facility] [employer] Immunizations Immunization Administration Dates Next Due INFLUENZA [...] 2003 ZOSTER VACCINE (1 of 2) 2003 DEPRESSION SCREENING 07/01/2024 COVID-19 VACCINE (1 - 2024-2 6 season) 2025 INFLUENZA VACCINE (#1) 2025 03/30/2020 Respiratory Syncytial Virus (RSV) Vaccine Pt: or [...] patient's age to complete this topic Insurance [facility] Address: [facility] [id number] [place] [address] [place] [address] Care Teams Hearing Aid Dispenser Relationship Specialty Start Date End Date Po Anderson MD [address] [place] [address] PCP - General 08/31/22
== END 2025-05-19 10:29 | disposition home or self-care (01) ==
PROVIDERS: PCP Family Medicine; Visit Provider Physician Assistant
DX: Z12.2 Encounter for screening for malignant neoplasm of respiratory organs (principal); Z87.891 Personal history of nicotine dependence
CPT/HCPCS: 71271